=== PATIENT | female | born 1955 | race American Indian/Alaskan Native ===

== ENCOUNTER 2017-07-10 10:24 | Emergency (ER) | payer MEDICAID ==
[2017-07-10 10:37] VITALS: BP 137/85; PULSE 91; RESP 20; TEMP 97.9; O2SAT 100
[2017-07-10] MEDS ORDERED: Sodium Chloride 0.9% 1,000 ML IV ONE (10:58)
--- NOTE | 2017-07-10 11:03 | C.PDOC ---
History Of Present Illness 61 yo male w/PMhx of obesity, HTN, hx of CVA, COPD, recently diagnosed with colon CA, was sent to ED by for further evaluation of rectal/ vaginal fissure. Pt reports, had colonoscopy performed on 06/14/17 when biopsy done and diagnosed with colon ca. Pt sts, 2 weeks after colonoscopy, "noted stool coming out of my vagina". Otherwise, pt denies fever, chills, headache, dizziness, CP, SOB, dyspnea, diaphoresis, palpitation, abd. pain, V/D, food intolerance, back pain, UTI sx. Pt admits, had CT abd/pelvis done, has results. Ambulate to Ed for evaluation, not in any apparent distress. Pt has Rx from with request to admission due to Anal/vaginal fissure. Consult with Debra Young card. Dr. Williams. Time Seen by Provider: 07/10/17 10:45 Chief Complaint (Nursing): Medical Clearance History Per: Patient History/Exam Limitations: no limitations Onset/Duration Of Symptoms: Days Past Medical History Reviewed: Historical Data, Nursing Documentation, Vital Signs Vital Signs: Last Vital Signs Temp 97.9 F 07/10/17 10:36 Pulse 91 H 07/10/17 10:36 Resp 20 07/10/17 10:36 BP 137/85 07/10/17 10:36 Pulse Ox 100 07/10/17 11:23 - Medical History PMH: CAD, COPD, HTN, Malignancy, TIA Other PMH: Obesity Other Surgeries: Gastric sleeve on 01/2017 - [facility] Procedures COLONOSCOPY (04/22/02) MAGNETIC RESONANCE IMAGING OF BRAIN AND BRAIN STEM (04/22/02) OTHER ENDOSCOPY OF SM INTEST (05/17/02) Family History: States: No Known Family Hx - Social History Hx Alcohol Use: No Hx Substance Use: No - Immunization History Hx Tetanus Toxoid Vaccination: No Hx Influenza Vaccination: No Hx Pneumococcal Vaccination: No Review Of Systems Except As Marked, All Systems Reviewed And Found Negative. Constitutional: Negative for: Fever, Chills Cardiovascular: Negative for: Chest Pain, Palpitations Respiratory: Negative for: Shortness of Breath Gastrointestinal: Negative for: Vomiting, Abdominal Pain, Diarrhea Musculoskeletal: Negative for: Back Pain Neurological: Negative for: Headache, Dizziness Physical Exam - Physical Exam Appears: Well, Non-toxic, No Acute Distress Skin: Normal Color, Warm, Dry Eye(s): bilateral: PERRL Nose: Normal Throat: No Erythema, No Exudate, No Drooling Neck: Trachea Midline, Supple Cardiovascular: Rhythm Regular, No JVD Respiratory: No Decreased Breath Sounds, No Accessory Muscle Use, No Stridor, No Wheezing Gastrointestinal/Abdominal: Soft, No Tenderness, No Distention, No Guarding Rectal: Other (pt is in hallway bed now) Back: No CVA Tenderness, No Vertebral Tenderness, No Paraspinal Tenderness Extremity: No Pedal Edema Neurological/Psych: Oriented x3, Normal Speech ED Course And Treatment O2 Sat by Pulse Oximetry: 100 (RA) Pulse Ox Interpretation: Normal Progress Note: Dr. Mills arrived to ED to evaluate patient. As per Dr. Mills, request to cancel blood work, pt can be discharge today and request return to ED in 2 days for pre-surgical medical evaluation/clearence prior to surgery scheduled for 07/15/17. Pt is aware and agrees with plan. On re- evaluation, pt is afebrile, hemodynamicalys table. non-toxic. Ambulatory in ED with stable gait. Abd: benign, (-) guarding, (-) rebound. Back: (-) CVA tenderness. Pt is stable for discharge now. Medical Decision Making Medical Decision Making: PLAN: * CBC * CMP * Troponin * Urinalysis * Sodium Chloride IV Disposition Counseled Patient/Family Regarding: Diagnosis, Need For Followup - Disposition Referrals: Demar Mills MD [Staff Provider] - Disposition: HOME/ ROUTINE Disposition Time: 11:17 Condition: STABLE Additional Instructions: RETURN TO ED ON 07/12/17 FOR ADMISSION AND MEDICAL CLEARANCE PRIOR TO SURGERY BY RETURN TO ED IF ANY WORSENING OR NEW CHANGES. 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 - Scribe Statement The provider has reviewed the documentation as recorded by the Scribe Ирина Ritchie All medical record entries made by the Scribe were at my direction and personally dictated by me. I have reviewed the chart and agree that the record accurately reflects my personal performance of the history, physical exam, medical decision making, and the department course for this patient. I have also personally directed, reviewed, and agree with the discharge instructions and disposition.
== END 2017-07-10 11:48 | disposition home or self-care (01) ==
LOC: C.ER 10:24
DX: K60.2 Anal fissure, unspecified (principal)

== ENCOUNTER 2017-07-12 11:14 | Inpatient (IN) | payer MEDICAID ==
[2017-07-12] MEDS ORDERED: Sodium Chloride 0.9% 1,000 ML IV ONE (12:05)
[2017-07-12 12:44] LABS: RBC URINE < 1 /hpf (0-3); URINE BACTERIA MOD (<OCC); URINE BILIRUBIN NEGATIVE (NEGATIVE); URINE BLOOD NEGATIVE (NEGATIVE); URINE COLOR Amber (YELLOW); URINE GLUCOSE (UA) NORMAL (Normal); URINE KETONE NEGATIVE (NEGATIVE); URINE LEUKOCYTE ESTERASE NEG Leu/uL (Negative); URINE PROTEIN NEGATIVE (NEGATIVE); URINE UROBILINOGEN NORMAL mg/dL (0.2-1.0); WBC URINE 2 /hpf (0-5)
[2017-07-12 13:00] LABS: BASO % 0.6 % (0.0-2.0); EOS # 0.3 K/uL (0.0-0.7); EOS % 4.7 % (0.0-4.0); HEMATOCRIT 35.6 % (34.0-47.0); LYMPH # 2.2 K/uL (1.0-4.3); MEAN CELL VOLUME 82.3 fL (81.0-99.0); MEAN CORPUSCULAR HEMOGLOBIN 26.7 pg (27.0-31.0); MEAN CORPUSCULAR HGB CONC 32.4 g/dL (33.0-37.0); MEAN PLATELET VOLUME 8.8 fL (7.2-11.7); MONO # 0.3 K/uL (0.0-0.8); NRBC % 0.1 % (0.0-2.0); RED CELL DISTRIBUTION WIDTH 13.7 % (11.5-14.5); WHITE BLOOD COUNT 5.6 K/uL (4.8-10.8)
[2017-07-12 13:07] LABS: CHLORIDE 104 mmol/L (98-107); POTASSIUM 3.5 mmol/L (3.6-5.2); SODIUM 138 mmol/L (132-148)
[2017-07-12 13:09] LABS: BILIRUBIN,TOTAL 0.4 mg/dL (0.2-1.3); GFR AFRICAN-AMERICAN > 60
[2017-07-12 13:10] LABS: ALKALINE PHOSPHATASE 100 U/L (38-126); ALT/SGPT 56 U/L (9-52); AST/SGOT 43 U/L (14-36); BLOOD UREA NITROGEN 12 mg/dL (7-17); CALCIUM 9.2 mg/dl (8.6-10.4); CARBON DIOXIDE 22 mmol/L (22-30); GLUCOSE,RANDOM 108 mg/dL (65-105); TOTAL PROTEIN 8.8 g/dL (6.3-8.3)
--- NOTE | 2017-07-12 13:15 | C.PDOC ---
History Of Present Illness 61 y/o female sent by to be admitted to Dr. Chand for Colon resection surgery. Patient has a hx of colon cancer diagnosed after a colonoscopy in april.. Denies fever, chills, or any other complaints. No chest pain or SOB. (+) constipation Time Seen by Provider: 07/12/17 11:38 Chief Complaint (Nursing): Medical Clearance History Per: Patient History/Exam Limitations: no limitations Onset/Duration Of Symptoms: Days Current Symptoms Are (Timing): Still Present Severity: Mild Reports Recently: Treated By A Physician (Dr. Koko Limon) Additional History Per: Patient Past Medical History Reviewed: Historical Data, Nursing Documentation, Vital Signs Vital Signs: Last Vital Signs Temp 98.0 F 07/12/17 11:24 Pulse 96 H 07/12/17 13:53 Resp 18 07/12/17 13:53 BP 122/78 07/12/17 13:53 Pulse Ox 98 07/12/17 13:53 - Medical History PMH: Anemia, Asthma, CAD, COPD, HTN, Hyperlipidemia, Malignancy, Migraine, Seizures, Sleep Apnea, TIA Surgical History: Appendectomy, Back Surgery (LUMBAR), Cholecystectomy, Endoscopy - [facility] Procedures COLONOSCOPY (04/22/02) MAGNETIC RESONANCE IMAGING OF BRAIN AND BRAIN STEM (04/22/02) OTHER ENDOSCOPY OF SM INTEST (05/17/02) Family History: States: Unknown Family Hx - Social History Hx Alcohol Use: No Hx Substance Use: No - Immunization History Hx Tetanus Toxoid Vaccination: No Hx Influenza Vaccination: No Hx Pneumococcal Vaccination: No Review Of Systems Except As Marked, All Systems Reviewed And Found Negative. Constitutional: Negative for: Fever, Chills Cardiovascular: Negative for: Chest Pain Respiratory: Negative for: Shortness of Breath Gastrointestinal: Positive for: Abdominal Pain, Constipation Physical Exam - Physical Exam Appears: Non-toxic, No Acute Distress Skin: Warm, Dry Head: Atraumatic, Normacephalic Neck: Normal Cardiovascular: Rhythm Regular, No Murmur Respiratory: Normal Breath Sounds, No Rales, No Rhonchi, No Wheezing Gastrointestinal/Abdominal: Soft, Tenderness (Mild diffuse abdominal pain) Back: No CVA Tenderness Neurological/Psych: Oriented x3, Normal Speech Gait: Steady ED Course And Treatment - Laboratory Results Result Diagrams: 07/12/17 12:56 07/12/17 12:56 Lab Interpretation: Normal O2 Sat by Pulse Oximetry: 99 (RA) Pulse Ox Interpretation: Normal Progress Note: Patient sent for admission to Dr Chand. Colon resection sceduled with Dr Mills. Case discussed with Dr roblero and request admission to Dr Chand Reassessment Condition: Unchanged - Physician Consult Information Physician Contacted: Kari Chand Outcome Of Conversation: admit Medical Decision Making Medical Decision Making: Plans: * IV fluids * XRAY obstructive series * Blood labs * UA Dr. Koko Limon notified and request patient to be admitted to Dr. Mills. Dr. Mills notified and will admit patient to his service. Disposition Discussed With Dr.: Kari Chand Doctor Will See Patient In The: Hospital - Disposition Disposition: HOSPITALIZED Disposition Time: 13:30 Condition: STABLE - POA Present On Arrival: None - Clinical Impression Clinical Impression: Colon cancer - Scribe Statement The provider has reviewed the documentation as recorded by the Scribe Paul swain All medical record entries made by the Scribe were at my direction and personally dictated by me. I have reviewed the chart and agree that the record accurately reflects my personal performance of the history, physical exam, medical decision making, and the department course for this patient. I have also personally directed, reviewed, and agree with the discharge instructions and disposition. Decision To Admit - Pt Status Changed To: Hospital Disposition Of: Inpatient - Admit Certification Admit to Inpatient:: After my assessment, the patient will require hospitalization for at least two midnights. This is because of the severity of symptoms shown, intensity of services needed, and/or the medical risk in this patient being treated as an outpatient. - InPatient: Physician Admission Certification: I certify that this patient requires 2 or more midnights of care for the following reason:: Colon Cancer - . Bed Request Type: Regular Admitting Physician: Kari Chand Patient Diagnosis: Colon cancer
[2017-07-12] MEDS ORDERED: Apap-Butalbital-Caffeine 325-50-40mg Tab PO PRN (14:01)
--- NOTE | 2017-07-12 14:01 | CP.PCM.PN ---
Subjective - Date & Time of Evaluation Date of Evaluation: 07/12/17 Time of Evaluation: 13:00 - Subjective Subjective: CC: Admitted for a scheduled javier coloectomy. HPI: Patient is a 61 year old female with a history of recent diagnosis of Colon cancer, HTN, DM, COPD, Psorasisi is here to be admitted for a scheduled surgery on Monday morning. Dr. Chand was consulted for primary medical management. She currently is complaining of some mild abdominal pain and also some psoriasis on her right elbow which she said flared up recently. She is says she takes a medication for DM but is unsure what the medication is. She also said she had a recent diagnosis of DM as well. She denies any history of NM or stent placement. She currently denies any recent fever, chills, nausea, vomiting, diarrhea, chest pain, shortness of breath, cough, dysuria, burning with urination, joint pain or swelling. PMH: see above PSH: Appendectomy, cholecystectomy FH: Patient denies any family history of cancer SH: Lives alone, retired, quit smoking 26 years ago, denies etoh use, or illicit drug use Allergic: Aspirin, Bactrim Objective - Vital Signs/Intake and Output Vital Signs (last 24 hours): Temp Pulse Resp BP Pulse Ox 98.0 F 96 H 18 122/78 98 07/12/17 11:24 07/12/17 13:53 07/12/17 13:53 07/12/17 13:53 07/12/17 13:53 - Labs Labs: 07/12/17 12:56 07/12/17 12:56 PT 10.8 SECONDS (9.7-12.2) 07/12/17 12:56 INR 1.0 07/12/17 12:56 APTT 30 SECONDS (21-34) 07/12/17 12:56 - Constitutional Appears: Non-toxic, No Acute Distress - Eye Exam Eye Exam: Normal appearance Pupil Exam: NORMAL ACCOMODATION - Respiratory Exam Respiratory Exam: Clear to Ausculation Bilateral. absent: Rales, Rhonchi, Wheezes - Cardiovascular Exam Cardiovascular Exam: REGULAR RHYTHM, RRR, +S1, +S2. absent: Gallop, Rubs - GI/Abdominal Exam GI & Abdominal Exam: Soft, Normal Bowel Sounds. absent: Distended, Firm, Tenderness - Extremities Exam Extremities Exam: Normal Inspection. absent: Pedal Edema - Back Exam Back Exam: absent: CVA tenderness (L), CVA tenderness (R) - Neurological Exam Neurological Exam: Oriented x3 - Psychiatric Exam Psychiatric exam: Normal Affect, Normal Mood - Skin Skin Exam: Normal Color, Pallor Additional comments: rash on posterior right elbow, scale non raised Assessment and Plan - Assessment and Plan (Free Text) Assessment: This is a 61 year old female with a history of DM, CAD, HTN, COPD, Migraines, and Siezures is being for medical optimization and clearance for surgery on Dr. Ohara, corinne follow up recs by Dr. Wolf cardiology consult. Colon Cancer 07/12: Patient admitted under Dr. Ohara, Patient admitted to regular floor as inpatient. She is scheduled for surgery Monday morning Pre op labs, CXR, EKG Dr. Wolf consulted for pre op medical clearance Follow up morning cbc, cmp, mag, phos 40 meq of KDUR for hypokalemia Elevated LFTs Hepatitis panel DM Patient's home medication is on formula and patient does not have it with her. Will do accu checks with sliding scale, can restart her home medication(Victoza ) when it is brought from home. hyooglycemia protocol CAD Crestor 5mg, Plavix 75mg HTN: Procardia XL 90mg daily COPD: Home Advair, nebulizer, Singular Migraines: Topamax 50mg daily Floricet Psorasis: Benadryl cream as needed Prophylatic Measure Lovenox 40mg SC Protonix 40mg daily SCDs Claritin 10mg
[2017-07-12] MEDS ORDERED: Diphenhydramine 1% Cream (1 oz) TOP PRN (14:06)
--- NOTE | 2017-07-12 14:10 | RAD ---
PROCEDURE: Radiographs of the chest and abdomen (obstructive series) HISTORY: Abd Pain COMPARISON: Chest radiographs 02/11/2015. No prior abdomen radiographs available for comparison. TECHNIQUE: AP radiograph of the chest, with upright and supine radiographs of the abdomen. FINDINGS: CHEST: No infiltrate, pleural effusion or pneumothorax is identified the cardiomediastinal appearing diffusely unremarkable. No pulmonary vascular derangement. ABDOMEN AND PELVIS: There is a nonobstructive bowel gas pattern appreciated with surgical is identified at the epigastric and right upper quadrant abdomen regions. Prominent retained fecal material scattered throughout the colon may reflect constipation. Clinically correlate. No free intraperitoneal gas identified at this time. IMPRESSION: Nonacute radiographs of chest and abdomen. No evidence of mechanical bowel obstruction. Constipation is in question. Clinically correlate further.
[2017-07-12] MEDS ORDERED: Dextrose 50% SYRINGE Inj (50 ml) IV PRN (14:24)
[2017-07-12] MEDS: Enoxaparin 40 mg Syringe SC SCH (15:24)
[2017-07-12] MEDS ORDERED: Pantoprazole 40 mg EC Tab PO SCH (16:00)
--- NOTE | 2017-07-12 16:17 | CP.PCM.CON ---
History of Present Illness - History of Present Illness History of Present Illness: 61 year old female with past medical history of colon cancer, stroke, migraines, COPD, and bariatric surgery complains of finding feces after she cleaned herself vaginally. Patient states she recently had a colonoscopy done on 06/22 and she later had her first bowel movement on 07/03. She stated during that bowel movement she was very constipated and after wiping vaginally she found a large lump of feces. She states it felt like there was a gaping hole in between my rectum and vagina. Patient states this has never happened before and she has not had a bowel movement since that day. She states she is in the hospital for a colon resection due to her colon cancer that was recently diagnosed on 06/22 during the colonscopy and was later confirmed with pathology. Patient stated she had a colonoscopy done about 4 years ago and they found non- cancerous polyps. She states she was having blood in her stool but thought her symptoms were due to her bariatric sleeve surgery she had done about one year ago.She states she has vaginal discharge that is white in color, vaginal odor and vaginal itching that started on 06/06 until present. She states she is using Tucks wipes for the vaginal itching which is helping with moderate relief. She denies dysuria, polyuria, vaginal bleeding, fever, or vomiting. She states she has been nauseated but has not vomited. PMD: Dr. Chand GI: Dr. Pérez Oncology: Dr. Chau General Surgeon: Dr. 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 Menarche:17 09/26; Periods were regular and were about 2 weeks long; Menopause: 51 years old; Denies abnormal vaginal bleeding; Diagnosed and treated for Gonorrhea in 1979; Diagnosed and treated for Chlamydia. Not currently sexually active. 7 vaginal deliveries all full term. 1973 (girl); 1975 (boy); 1977 (boy) ; 1979 (girl); 1980 (girl); 1983 (girl); 1985 (boy) Medical History: Asthma, COPD, seizure (2002); migranes, gastroparesis, anemia, sleep apnea, psoriasis, CAD Surgical History: Endoscopy 1999; Bariatric sleeve 02/04/16; appendectomy 1975; lumbar surgery 07/1990; cardiac catharization 06/1990; cholecystecomy; crycone surgery 1994; tubal ligation 08/1986; colonoscopy 05/2017 Medications: Nifedipine ER 90mg; Simvastatin 20mg; Clopidogrel 75mg; topiramate 50mg; fioricet; vitamin b-complex; bantoprazole DR 40mgl folic acid 1mg; vitamin D; advair; albuterol sulfate 0.083%; ventolin; loratadine 10mg; CPAP machine, meta mucil 1 tbsp per day, hemp oil 1 tbsp per day Allergies: aspirin, bees, sulfa, trimethoprim, oil based dye Family History: Dad passed at 64 years of age due to kidney cancer; mom living at 86 years of age - diabetes, heart disease and Alzheimer's disease; brother passed of a brain cancer Social History: Quit smoking 26 years ago; Smoked for about 20 years about 2-3 cigarettes per day; Denies alcohol or illicit drug use. Lives with daughter. Single. 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 Review of Systems - Constitutional Constitutional: absent: Chills, Fever, Headache - EENT Eyes: absent: Blurred Vision, Dry Eye Nose/Mouth/Throat: absent: Nasal Congestion, Nasal Discharge, Dry Mouth - Cardiovascular Cardiovascular: absent: Chest Pain, Dyspnea - Respiratory Respiratory: absent: Dyspnea - Gastrointestinal Gastrointestinal: Constipation, Nausea. absent: Diarrhea, Loose Stools, Vomiting - Genitourinary Genitourinary: absent: Dysuria, Flank Pain, Hematuria, Nocturia, Urinary Incontinence, Urinary Frequency, Urinary Hesitance, Urinary Urgency, Voiding Freq/Small Amts - Reproductive: Female Reproductive:Female: Post Menopausal, Vaginal Discharge (white in color), Vaginal Pruritis - Menstruation Menstruation: Post Menopausal - Neurological Neurological: absent: Dizziness, Headaches - Psychiatric Psychiatric: absent: Anxiety Past Patient History - Infectious Disease Hx of Infectious Diseases: None - Past Social History Smoking Status: Former Smoker - CARDIAC Hx Hypertension: Yes - PULMONARY Hx Asthma: Yes Hx Chronic Obstructive Pulmonary Disease (COPD): Yes Hx Sleep Apnea: Yes - NEUROLOGICAL Hx Migraine: Yes Hx Seizures: Yes Hx Transient Ischemic Attacks (TIA): Yes - ENDOCRINE/METABOLIC Hx Diabetes Mellitus Type 2: Yes - HEMATOLOGICAL/ONCOLOGICAL Hx Anemia: Yes - GASTROINTESTINAL Hx Gastrointestinal Disorders: Yes Other/Comment: GASTROPARESIS - PSYCHIATRIC Hx Substance Use: No - SURGICAL HISTORY Hx Appendectomy: Yes Hx Cholecystectomy: Yes - ANESTHESIA Hx Anesthesia: Yes Hx Anesthesia Reactions: No Meds Allergies/Adverse Reactions: Allergies Allergy/AdvReac Type Severity Reaction Status Date / Time aspirin Allergy Verified 07/12/17 11:28 bee venom protein (honey bee) Allergy Verified 07/12/17 11:28 sulfamethoxazole Allergy Verified 07/12/17 11:28 [From Bactrim] trimethoprim [From Bactrim] Allergy Verified 07/12/17 11:28 OIL BASED DYE Allergy Uncoded 07/12/17 11:28 - Medications Medications: Current Medications Acetaminophen/Butalbital/Caffeine (Fioricet) 1 tab PO Q8 PRN PRN Reason: Pain, moderate (4-7) Albuterol Sulfate (Albuterol 0.083% Inhal Nasra (2.5 Mg/3 Ml) Ud) 2.5 mg IH RQ6 [facility] Clopidogrel Bisulfate (Plavix) 75 mg PO DAILY [facility] Last Admin: 07/12/17 15:36 Dose: Not Given Dextrose (Dextrose 50% Inj) 0 ml IV STAT PRN; Protocol PRN Reason: Hyglycemia Protocol Dextrose (Glutose 15) 0 gm PO ONCE PRN; Protocol PRN Reason: Hypoglycemia Protocol Enoxaparin Sodium (Lovenox) 40 mg SC DAILY [facility] Last Admin: 07/12/17 15:24 Dose: 40 mg Famotidine (Pepcid) 20 mg PO BID [facility] Dextrose (Dextrose 5% In Water 1000 Ml) 1,000 mls @ 0 mls/hr IV .Q0M PRN; Protocol; Per Protocol PRN Reason: Hypoglycemia Protocol Insulin Human Regular (Novolin R) 0 unit SC ACHS [facility] PRN Reason: Protocol Loratadine (Claritin) 10 mg PO DAILY [facility] Multivitamins (Hexavitamin) 1 tab PO DAILY [facility] Nifedipine (Procardia Xl) 90 mg PO DAILY [facility] Rosuvastatin Calcium (Crestor) 5 mg PO HS [facility] Fluticasone/Salmeterol (Advair Diskus 250/50) 1 puff IH RQ12 [facility] Topiramate (Topamax (Brand)) 50 mg PO DAILY [facility] Zinc Acetate/Diphenhydramine (Benadryl 1% Zinc Acetate -0.1%) 1 cre TOP BID PRN PRN Reason: Itching / Pruritus Last Admin: 10/18/17 15:26 Dose: 1 applic Physical Exam - Constitutional Appears: Well, No Acute Distress - Head Exam Head Exam: ATRAUMATIC, NORMAL INSPECTION - Eye Exam Eye Exam: EOMI, Normal appearance, PERRL Pupil Exam: NORMAL ACCOMODATION - ENT Exam ENT Exam: Mucous Membranes Moist - Respiratory Exam Respiratory Exam: Clear to Auscultation Bilateral, NORMAL BREATHING PATTERN - Cardiovascular Exam Cardiovascular Exam: REGULAR RHYTHM, RRR, +S1, +S2 - GI/Abdominal Exam GI & Abdominal Exam: Hypoactive Bowel Sounds, Soft, Tenderness - Exam External exam: NORMAL EXTERNAL EXAM. absent: Lacerations, Lesions, Swelling Speculum exam: NORMAL SPECULUM EXAM (no feces seen on exam). absent: Cervical Discharge, Vaginal Bleeding, Vaginal Discharge Bimanual exam: NORMAL BIMANUAL EXAM. absent: Adenexal Mass, Cervical Motion Tendernes, Uterine Enlargement, Uterine Tenderness - Extremities Exam Extremities exam: Positive for: normal inspection. Negative for: pedal edema, tenderness - Neurological Exam Neurological exam: Alert, Oriented x3 - Psychiatric Exam Psychiatric exam: Normal Affect, Normal Mood - Skin Skin Exam: Normal Color, Warm Results - Vital Signs Recent Vital Signs: Last Vital Signs Temp 98.0 F 07/12/17 11:24 Pulse 96 H 07/12/17 13:53 Resp 18 07/12/17 13:53 BP 122/78 07/12/17 13:53 Pulse Ox 99 07/12/17 15:06 - Labs Result Diagrams: 07/12/17 12:56 07/12/17 12:56 Labs: Laboratory Results - last 24 hr 07/12/17 07/12/17 07/12/17 12:34 12:56 12:56 WBC 5.6 RBC 4.32 Hgb 11.5 Hct 35.6 MCV 82.3 MCH 26.7 L MCHC 32.4 L RDW 13.7 Plt Count 254 MPV 8.8 Neut % (Auto) 48.7 L Lymph % (Auto) 40.0 Holt % (Auto) 6.0 Eos % (Auto) 4.7 H Baso % (Auto) 0.6 Neut # 2.7 Lymph # 2.2 Holt # 0.3 Eos # 0.3 Baso # 0.0 PT INR APTT Sodium 138 Potassium 3.5 L Chloride 104 Carbon Dioxide 22 Anion Gap 16 BUN 12 Creatinine 0.9 Est GFR ( Amer) > 60 Est GFR (Non-Af Amer) > 60 Random Glucose 108 H Calcium 9.2 Total Bilirubin 0.4 AST 43 H ALT 56 H Alkaline Phosphatase 100 Total Protein 8.8 H Albumin 4.4 Globulin 4.4 H Albumin/Globulin Ratio 1.0 Lipase 50 Urine Color Nida Urine Clarity Hazy Urine pH 6.0 Ur Specific [place] 1.017 Urine Protein Negative Urine Glucose (UA) Normal Urine Ketones Negative Urine Blood Negative Urine Nitrate Negative Urine Bilirubin Negative Urine Urobilinogen Normal Ur Leukocyte Esterase Neg Urine WBC (Auto) 2 Urine RBC (Auto) < 1 Ur Squamous Epith Cells 1 Urine Bacteria Mod H 07/12/17 12:56 WBC RBC Hgb Hct MCV MCH MCHC RDW Plt Count MPV Neut % (Auto) Lymph % (Auto) Holt % (Auto) Eos % (Auto) Baso % (Auto) Neut # Lymph # Holt # Eos # Baso # PT 10.8 INR 1.0 APTT 30 Sodium Potassium Chloride Carbon Dioxide Anion Gap BUN Creatinine Est GFR ( Amer) Est GFR (Non-Af Amer) Random Glucose Calcium Total Bilirubin AST ALT Alkaline Phosphatase Total Protein Albumin Globulin Albumin/Globulin Ratio Lipase Urine Color Urine Clarity Urine pH Ur Specific [place] Urine Protein Urine Glucose (UA) Urine Ketones Urine Blood Urine Nitrate Urine Bilirubin Urine Urobilinogen Ur Leukocyte Esterase Urine WBC (Auto) Urine RBC (Auto) Ur Squamous Epith Cells Urine Bacteria Assessment & Plan - Assessment and Plan (Free Text) Assessment: 61 year old female with past medical history of colon cancer, stroke, migraines, COPD, and bariatric surgery complains of finding feces after she cleaned herself vaginally. Consult for fistula: Speculum exam was normal, no feces present. If fistula is present it is small in size and cannot be felt on physical exam. Recommendations to confirm fisutla: barium enema, CT with contrast of pelvis. If further workup needed should consult bellows filler/onc surgery. Thank you for this consult. Please re-consult if needed. Case discussed with Dr Brian Capps, PGY-1
[2017-07-12] MEDS: NIFEdipine 90 mg ER Tab PO SCH (17:33)
[2017-07-12] MEDS: Potassium Chloride 20 mEq ER Tab PO SCH (17:34)
[2017-07-12] MEDS: (Novolin R) Insulin Human Regular 100 units/ml vial SC SCH ×2 (17:37→21:41)
[2017-07-13] MEDS: Fluticasone-Salmeterol 250-50mcg Diskus IH SCH ×2 (07:25→20:12)
[2017-07-13 07:28] LABS: BASO % 0.7 % (0.0-2.0); EOS # 0.2 K/uL (0.0-0.7); EOS % 6.2 % (0.0-4.0); HEMATOCRIT 33.2 % (34.0-47.0); LYMPH # 1.6 K/uL (1.0-4.3); LYMPH % 44.7 % (20.0-40.0); MEAN CORPUSCULAR HEMOGLOBIN 26.7 pg (27.0-31.0); MEAN CORPUSCULAR HGB CONC 32.6 g/dL (33.0-37.0); MEAN PLATELET VOLUME 9.2 fL (7.2-11.7); MONO # 0.3 K/uL (0.0-0.8); MONO % 7.4 % (0.0-10.0); NRBC % 0.1 % (0.0-2.0); RED CELL DISTRIBUTION WIDTH 13.6 % (11.5-14.5); WHITE BLOOD COUNT 3.6 K/uL (4.8-10.8)
[2017-07-13] MEDS: (Novolin R) Insulin Human Regular 100 units/ml vial SC SCH ×4 (07:50→21:20)
[2017-07-13 08:00] LABS: CHLORIDE 104 mmol/L (98-107); POTASSIUM 3.6 mmol/L (3.6-5.2); SODIUM 138 mmol/L (132-148)
[2017-07-13 08:02] LABS: GFR AFRICAN-AMERICAN > 60
[2017-07-13 08:03] LABS: ALB/GLOB RATIO 1.1 (1.0-2.1); ALKALINE PHOSPHATASE 88 U/L (38-126); ALT/SGPT 47 U/L (9-52); AST/SGOT 42 U/L (14-36); BILIRUBIN,TOTAL 0.5 mg/dL (0.2-1.3); BLOOD UREA NITROGEN 11 mg/dL (7-17); CALCIUM 8.8 mg/dl (8.6-10.4); CARBON DIOXIDE 24 mmol/L (22-30); GLUCOSE,RANDOM 84 mg/dL (65-105); TOTAL PROTEIN 7.5 g/dL (6.3-8.3)
[2017-07-13] MEDS: Enoxaparin 40 mg Syringe SC SCH (09:48)
[2017-07-13] MEDS: Multiple Vitamins Tab PO SCH (09:50)
[2017-07-13] MEDS: Potassium Chloride 20 mEq ER Tab PO SCH (09:51)
[2017-07-13] MEDS: TOPIRAMATE 50 MG PO SCH (09:51)
[2017-07-13] MEDS: NIFEdipine 90 mg ER Tab PO SCH (09:51)
[2017-07-13] MEDS ORDERED: LIRAGLUTIDE 0.6 MG SQ SCH (10:00)
--- NOTE | 2017-07-13 11:10 | CP.PCM.PN ---
Subjective - Date & Time of Evaluation Date of Evaluation: 07/13/17 Time of Evaluation: 11:11 - Subjective Subjective: Patient has no current complaints; awaiting recommendations from Dr. Mills Objective - Vital Signs/Intake and Output Vital Signs (last 24 hours): Temp Pulse Resp BP Pulse Ox 98.0 F 70 20 111/71 100 07/13/17 08:14 07/13/17 08:14 07/13/17 08:14 07/13/17 08:14 07/13/17 08:14 Intake and Output: 07/13/17 07/13/17 06:59 18:59 Intake Total 250 Balance 250 - Medications Medications: Current Medications Acetaminophen/Butalbital/Caffeine (Fioricet) 1 tab PO Q8 PRN PRN Reason: Pain, moderate (4-7) Albuterol Sulfate (Albuterol 0.083% Inhal Nasra (2.5 Mg/3 Ml) Ud) 2.5 mg IH RQ6 [facility] Clopidogrel Bisulfate (Plavix) 75 mg PO DAILY [facility] Last Admin: 07/13/17 09:51 Dose: Not Given Dextrose (Dextrose 50% Inj) 0 ml IV STAT PRN; Protocol PRN Reason: Hyglycemia Protocol Dextrose (Glutose 15) 0 gm PO ONCE PRN; Protocol PRN Reason: Hypoglycemia Protocol Enoxaparin Sodium (Lovenox) 40 mg SC DAILY [facility] Last Admin: 07/13/17 09:48 Dose: 40 mg Famotidine (Pepcid) 20 mg PO BID [facility] Last Admin: 07/13/17 09:51 Dose: Not Given Dextrose (Dextrose 5% In Water 1000 Ml) 1,000 mls @ 0 mls/hr IV .Q0M PRN; Protocol; Per Protocol PRN Reason: Hypoglycemia Protocol Insulin Human Regular (Novolin R) 0 unit SC ACHS [facility] PRN Reason: Protocol Last Admin: 07/13/17 07:50 Dose: Not Given Loratadine (Claritin) 10 mg PO DAILY [facility] Last Admin: 07/13/17 09:50 Dose: Not Given Multivitamins (Hexavitamin) 1 tab PO DAILY [facility] Last Admin: 07/13/17 09:50 Dose: Not Given Nifedipine (Procardia Xl) 90 mg PO DAILY [facility] Last Admin: 07/13/17 09:51 Dose: Not Given Pneumococcal Polyvalent Vaccine (Pneumovax 23 Vaccine) 0.5 ml IM .ONCE ONE Stop: 07/14/17 10:01 Potassium Chloride (K-Dur 20 Meq Er Tab) 20 meq PO DAILY [facility] Last Admin: 07/13/17 09:51 Dose: Not Given Rosuvastatin Calcium (Crestor) 5 mg PO HS [facility] Last Admin: 07/12/17 21:39 Dose: 5 mg Fluticasone/Salmeterol (Advair Diskus 250/50) 1 puff IH RQ12 [facility] Last Admin: 07/13/17 07:25 Dose: 1 inhaler Topiramate (Topamax (Brand)) 50 mg PO DAILY [facility] Last Admin: 07/13/17 09:51 Dose: Not Given Zinc Acetate/Diphenhydramine (Benadryl 1% Zinc Acetate -0.1%) 1 cre TOP BID PRN PRN Reason: Itching / Pruritus Last Admin: 07/12/17 15:26 Dose: 1 applic - Labs Labs: 07/13/17 07:09 07/13/17 07:09 PT 10.8 SECONDS (9.7-12.2) 07/12/17 12:56 INR 1.0 07/12/17 12:56 APTT 30 SECONDS (21-34) 07/12/17 12:56 - Constitutional Appears: Non-toxic - Head Exam Additional comments: - Eye Exam Eye Exam: Normal appearance Pupil Exam: NORMAL ACCOMODATION - Respiratory Exam Respiratory Exam: Clear to Ausculation Bilateral. absent: Rales, Rhonchi, Wheezes - Cardiovascular Exam Cardiovascular Exam: REGULAR RHYTHM, RRR, +S1, +S2. absent: Gallop, Rubs - GI/Abdominal Exam GI & Abdominal Exam: Soft, Normal Bowel Sounds. absent: Distended, Firm, Tenderness - Extremities Exam Extremities Exam: Normal Inspection. absent: Pedal Edema - Back Exam Back Exam: absent: CVA tenderness (L), CVA tenderness (R) - Neurological Exam Neurological Exam: Oriented x3 - Psychiatric Exam Psychiatric exam: Normal Affect, Normal Mood - Skin Skin Exam: Normal Color, Pallor Additional comments: rash on posterior right elbow, scale non raised Assessment and Plan - Assessment and Plan (Free Text) Assessment: This is a 61 year old female with a history of DM, CAD, HTN, COPD, Migraines, and Siezures is being for medical optimization and clearance for surgery on Dr. Mills, will follow up recs by Dr. Wolf cardiology consult. Colon Cancer 07/12: Patient admitted under Dr. Mills, Patient admitted to regular floor as inpatient. She is scheduled for surgery Monday morning -Pre op labs, CXR, EKG -Dr. Wolf consulted for pre op medical clearance; appreciate recs Elevated LFTs;downtrending Hepatitis panel negative DM home medication(Victoza) when it is brought from home. hypoglycemia protocol CAD Crestor 5mg, Plavix 75mg HTN Procardia XL 90mg daily COPD Home Advair, nebulizer, Singular Migraines Topamax 50mg daily Floricet Psorasis Benadryl cream as needed Prophylatic Measure Lovenox 40mg SC Protonix 40mg daily SCDs Claritin 10mg Alll management as per Dr. Chand
[2017-07-13] MEDS ORDERED: Aminophylline 25 mg/ml Inj ONE (11:22)
--- NOTE | 2017-07-13 11:36 | CP.PCM.CON ---
History of Present Illness - History of Present Illness History of Present Illness: I was asked to evaluate patient for preoperative cardiovascular risk assessment. Patient is a 61 year old male with a history of HTN who has colon cancer. The patient requires hemicolectomy. She has intermittent dyspnea at times. The patient denies chest pain. Review of Systems - Constitutional Constitutional: absent: As Per HPI, Anorexia, Chills, Daytime Sleepiness, Excessive Sweating, Fatigue, Fever, Frequent Falls, Headache, Increased Appetite , Lethargy, Malaise, Night Sweats, Snoring, Sleep Apnea, Weight Gain, Weight Loss, Weakness, Other - EENT Eyes: absent: As Per HPI, Blind Spots, Blurred Vision, Change in Vision, Decreased Night Vision, Diplopia, Discharge, Dry Eye, Exophthalmos, Floaters, Irritation, Itchy Eyes, Loss of Peripheral Vision, Pain, Photophobia, Requires Corrective Lenses, Sees Flashes, Spots in Vision, Tunnel Vision, Other Visual Disturbances, Loss of Vision, Other Ears: absent: As Per HPI, Decreased Hearing, Ear Discharge, Ear Pain, Tinnitus, Abnormal Hearing, Disequilibrium, Dizziness, Other Nose/Mouth/Throat: absent: As Per HPI, Epistaxis, Nasal Congestion, Nasal Discharge, Nasal Obstruction, Nasal Trauma, Nose Pain, Post Nasal Drip, Sinus Pain, Sinus Pressure, Bleeding Gums, Change in Voice, Dental Pain, Dry Mouth, Dysphagia, Halitosis, Hoarsness, Lip Swelling, Mouth Lesions, Mouth Pain, Odynophagia, Sore Throat, Throat Swelling, Tongue Swelling, Facial Pain, Neck Pain, Neck Mass, Other - Cardiovascular Cardiovascular: absent: As Per HPI, Acrocyanosis, Chest Pain, Chest Pain at Rest , Chest Pain with Activity, Claudication, Diaphoresis, Dyspnea, Dyspnea on Exertion, Edema, Irregular Heart Rhythm, Pain Radiating to Arm/Neck/Jaw, Leg Edema, Leg Ulcers, Lightheadedness, Orthopnea, Palpitations, Paroxysmal Nocturnal Dyspnea, Pedal Edema, Radiating Pain, Rapid Heart Rate, Slow Heart Rate, Syncope, Other - Respiratory Respiratory: Dyspnea - Gastrointestinal Gastrointestinal: absent: As Per HPI, Abdominal Pain, Belching, Bloating, Change in Bowel Habits, Change in Stool Character, Coffee Ground Emesis, Constipation, Cramping, Diarrhea, Dyspepsia, Dysphagia, Early Satiety, Excessive Flatus, Fecal Incontinence, Heartburn, Hematemesis, Hematochezia, Loose Stools, Melena, Nausea, Odynophagia, Temesmus, Vomiting, Other - Genitourinary Genitourinary: absent: As Per HPI, Change in Urinary Stream, Difficulty Urinating, Dysuria, Flank Pain, Hematuria, Pyuria, Nocturia, Urinary Incontinence, Urinary Frequency, Urinary Hesitance, Urinary Urgency, Voiding Freq/Small Amts, Freq UTI, Hx Renal/Bladder Calculi, Hx /Renal Surgery, Bladder Distension, Other - Menstruation Menstruation: absent: As Per HPI, Amenorrhea, Amenorrhea/ Control, Currently Menstual, Cycle <21 Days, Cycle >35 Days, Cycle Variable, Menses 1-7 Days, Menses >/= 8 Days, Menses Variable, Cycle > 4 Weeks Between, No Menses for 6 Months, Heavy Menses, Light Menses, Normal Menses, Spotting Between Cycles , S/P Hysterectomy, Menopausal, Post Menopausal, Premenarche, Abnormal Vaginal Bleeding, Dysmenorrhea, Other - Musculoskeletal Musculoskeletal: absent: As Per HPI, Abnormal Gait, Arthralgias, Atrophy, Back Pain, Deformity, Joint Swelling, Limited Range of Motion, Loss of Height, Muscle Cramps, Muscle Weakness, Myalgias, Neck Pain, Numbness, Radiating Pain into Limb, Stiffness, Tingling, Other - Integumentary Integumentary: absent: As Per HPI, Acne, Alopecia, Bleeding Lesions, Change in Hair, Change in Nails, Change in Pigmentation, Changing Lesions, Dry Skin, Erythema, Furuncle, Hirsutism, Lesions, New Lesions, Non-Healing Lesions, Photosensitivity, Pruritus, Rash, Skin Pain, Skin Ulcer, Sores, Striae, Swelling , Unusual Bruising, Wounds, Jaundice, Other - Neurological Neurological: absent: As Per HPI, Abnormal Gait, Abnormal Hearing, Abnormal Movements, Abnormal Speech, Behavioral Changes, Burning Sensations, Confusion, Convulsions, Disequilibrium, Dizziness, Numbness, Focal Weakness, Frequent Falls , Headaches, Lack of Coordination, Loss of Vision, Memory Loss, Paresthesias, Radicular Pain, Restless Legs, Sensory Deficit, Syncope, Tingling, Tremor, Vertigo, Weakness, Other Visual Disturbances, Other - Psychiatric Psychiatric: absent: As Per HPI, Abnormal Sleep Pattern, Anhedonia, Anxiety, Auditory Hallucinations, Behavioral Changes, Change in Appetite, Change in Libido, Confusion, Depression, Difficulty Concentrating, Hallucinations, Homicidal Ideation, Hopelessness, Irritability, Memory Loss, Mood Swings, Panic Attacks, Paranoia, Suicidal Ideation, Visual Hallucinations, Tactile Hallucinations, Other - Endocrine Endocrine: absent: As Per HPI, Change in Body Appearance, Change in Libido, Cold Intolorance, Deepening of Voice, Excessive Sweating, Fatigue, Flushing, Heat Intolorance, Increase in Ring/Shoe/Hat Size, Palpitations, Polydipsia, Polyphagia, Polyuria, Other - Hematologic/Lymphatic Hematologic: absent: As Per HPI, Easy Bleeding, Easy Bruising, Lymphadenopathy, Other Past Patient History - Infectious Disease Hx of Infectious Diseases: None - Past Social History Smoking Status: Former Smoker - CARDIAC Hx Hypertension: Yes - PULMONARY Hx Asthma: Yes Hx Chronic Obstructive Pulmonary Disease (COPD): Yes Hx Sleep Apnea: Yes - NEUROLOGICAL Hx Migraine: Yes Hx Seizures: Yes Hx Transient Ischemic Attacks (TIA): Yes - ENDOCRINE/METABOLIC Hx Diabetes Mellitus Type 2: Yes - HEMATOLOGICAL/ONCOLOGICAL Hx Anemia: Yes - INTEGUMENTARY Hx Eczema: Yes - MUSCULOSKELETAL/RHEUMATOLOGICAL Hx Falls: No Other/Comment: back sx - GASTROINTESTINAL Hx Gastrointestinal Disorders: Yes Other/Comment: GASTROPARESIS - PSYCHIATRIC Hx Substance Use: No - SURGICAL HISTORY Hx Appendectomy: Yes Hx Cholecystectomy: Yes - ANESTHESIA Hx Anesthesia: Yes Hx Anesthesia Reactions: No Meds Allergies/Adverse Reactions: Allergies Allergy/AdvReac Type Severity Reaction Status Date / Time aspirin Allergy Verified 07/12/17 11:28 bee venom protein (honey bee) Allergy Verified 07/12/17 11:28 sulfamethoxazole Allergy Verified 07/12/17 11:28 [From Bactrim] trimethoprim [From Bactrim] Allergy Verified 07/12/17 11:28 OIL BASED DYE Allergy Uncoded 07/12/17 11:28 - Medications Medications: Current Medications Acetaminophen/Butalbital/Caffeine (Fioricet) 1 tab PO Q8 PRN PRN Reason: Pain, moderate (4-7) Albuterol Sulfate (Albuterol 0.083% Inhal Nasra (2.5 Mg/3 Ml) Ud) 2.5 mg IH RQ6 [facility] Clopidogrel Bisulfate (Plavix) 75 mg PO DAILY [facility] Last Admin: 07/13/17 09:51 Dose: Not Given Dextrose (Dextrose 50% Inj) 0 ml IV STAT PRN; Protocol PRN Reason: Hyglycemia Protocol Dextrose (Glutose 15) 0 gm PO ONCE PRN; Protocol PRN Reason: Hypoglycemia Protocol Enoxaparin Sodium (Lovenox) 40 mg SC DAILY [facility] Last Admin: 07/13/17 09:48 Dose: 40 mg Famotidine (Pepcid) 20 mg PO BID [facility] Last Admin: 07/13/17 09:51 Dose: Not Given Dextrose (Dextrose 5% In Water 1000 Ml) 1,000 mls @ 0 mls/hr IV .Q0M PRN; Protocol; Per Protocol PRN Reason: Hypoglycemia Protocol Insulin Human Regular (Novolin R) 0 unit SC ACHS [facility] PRN Reason: Protocol Last Admin: 07/13/17 07:50 Dose: Not Given Loratadine (Claritin) 10 mg PO DAILY [facility] Last Admin: 07/13/17 09:50 Dose: Not Given Multivitamins (Hexavitamin) 1 tab PO DAILY [facility] Last Admin: 07/13/17 09:50 Dose: Not Given Nifedipine (Procardia Xl) 90 mg PO DAILY [facility] Last Admin: 07/13/17 09:51 Dose: Not Given Pneumococcal Polyvalent Vaccine (Pneumovax 23 Vaccine) 0.5 ml IM .ONCE ONE Stop: 07/14/17 10:01 Potassium Chloride (K-Dur 20 Meq Er Tab) 20 meq PO DAILY [facility] Last Admin: 07/13/17 09:51 Dose: Not Given Rosuvastatin Calcium (Crestor) 5 mg PO HS [facility] Last Admin: 07/12/17 21:39 Dose: 5 mg Fluticasone/Salmeterol (Advair Diskus 250/50) 1 puff IH RQ12 [facility] Last Admin: 07/13/17 07:25 Dose: 1 inhaler Topiramate (Topamax (Brand)) 50 mg PO DAILY [facility] Last Admin: 07/13/17 09:51 Dose: Not Given Zinc Acetate/Diphenhydramine (Benadryl 1% Zinc Acetate -0.1%) 1 cre TOP BID PRN PRN Reason: Itching / Pruritus Last Admin: 07/12/17 15:26 Dose: 1 applic Physical Exam - Constitutional Appears: Non-toxic - Head Exam Head Exam: NORMAL INSPECTION - Eye Exam Eye Exam: Normal appearance - ENT Exam ENT Exam: Mucous Membranes Moist - Neck Exam Neck exam: Positive for: Full Rom - Respiratory Exam Respiratory Exam: NORMAL BREATHING PATTERN - Cardiovascular Exam Cardiovascular Exam: Bradycardia - GI/Abdominal Exam GI & Abdominal Exam: absent: Bruit, Diminished Bowel Sounds, Distended, Firm, Guarding, Hernia, Hyperactive Bowel Sounds, Hypoactive Bowel Sounds, Mass, Normal Bowel Sounds, Organomegaly, Pulsatile Mass, Rebound, Rigid, Soft, Tenderness - Rectal Exam Rectal Exam: absent: Deferred, Black Stool, Bloody Stool, Hemorrhoids, Fecal Impaction, NORMAL INSPECTION - Extremities Exam Extremities exam: Negative for: calf tenderness, full ROM, joint swelling, normal capillary refill, normal inspection, pedal edema, tenderness, pedal pulses present - Back Exam Back exam: absent: CVA tenderness (L), CVA tenderness (R), FULL ROM, muscle spasm, NORMAL INSPECTION, paraspinal tenderness, rash noted, tenderness, vertebral tenderness - Neurological Exam Neurological exam: Alert, Oriented x3 - Skin Skin Exam: Intact Results - Vital Signs Recent Vital Signs: Last Vital Signs Temp 98.0 F 07/13/17 08:14 Pulse 70 07/13/17 08:14 Resp 20 07/13/17 08:14 BP 111/71 07/13/17 08:14 Pulse Ox 100 07/13/17 08:14 - Labs Result Diagrams: 07/13/17 07:09 07/13/17 07:09 Labs: Laboratory Results - last 24 hr 07/12/17 07/12/17 07/12/17 12:34 12:56 12:56 WBC 5.6 RBC 4.32 Hgb 11.5 Hct 35.6 MCV 82.3 MCH 26.7 L MCHC 32.4 L RDW 13.7 Plt Count 254 MPV 8.8 Neut % (Auto) 48.7 L Lymph % (Auto) 40.0 Wise % (Auto) 6.0 Eos % (Auto) 4.7 H Baso % (Auto) 0.6 Neut # 2.7 Lymph # 2.2 Wise # 0.3 Eos # 0.3 Baso # 0.0 PT INR APTT Sodium 138 Potassium 3.5 L Chloride 104 Carbon Dioxide 22 Anion Gap 16 BUN 12 Creatinine 0.9 Est GFR ( Amer) > 60 Est GFR (Non-Af Amer) > 60 POC Glucose (mg/dL) Random Glucose 108 H Calcium 9.2 Phosphorus Magnesium Total Bilirubin 0.4 AST 43 H ALT 56 H Alkaline Phosphatase 100 Total Protein 8.8 H Albumin 4.4 Globulin 4.4 H Albumin/Globulin Ratio 1.0 Lipase 50 Urine Color [place] Urine Clarity Hazy Urine pH 6.0 Ur Specific [place] 1.017 Urine Protein Negative Urine Glucose (UA) Normal Urine Ketones Negative Urine Blood Negative Urine Nitrate Negative Urine Bilirubin Negative Urine Urobilinogen Normal Ur Leukocyte Esterase Neg Urine WBC (Auto) 2 Urine RBC (Auto) < 1 Ur Squamous Epith Cells 1 Urine Bacteria Mod H Hepatitis A IgM Ab Hep Bs Antigen Hep B Core IgM Ab Hepatitis C Antibody 07/12/17 07/12/17 07/12/17 12:56 16:54 20:51 WBC RBC Hgb Hct MCV MCH MCHC RDW Plt Count MPV Neut % (Auto) Lymph % (Auto) Wise % (Auto) Eos % (Auto) Baso % (Auto) Neut # Lymph # Wise # Eos # Baso # PT 10.8 INR 1.0 APTT 30 Sodium Potassium Chloride Carbon Dioxide Anion Gap BUN Creatinine Est GFR ( Amer) Est GFR (Non-Af Amer) POC Glucose (mg/dL) 159 H 103 Random Glucose Calcium Phosphorus Magnesium Total Bilirubin AST ALT Alkaline Phosphatase Total Protein Albumin Globulin Albumin/Globulin Ratio Lipase Urine Color Urine Clarity Urine pH Ur Specific [place] Urine Protein Urine Glucose (UA) Urine Ketones Urine Blood Urine Nitrate Urine Bilirubin Urine Urobilinogen Ur Leukocyte Esterase Urine WBC (Auto) Urine RBC (Auto) Ur Squamous Epith Cells Urine Bacteria Hepatitis A IgM Ab Hep Bs Antigen Hep B Core IgM Ab Hepatitis C Antibody 07/13/17 07/13/17 07/13/17 07:02 07:09 07:09 WBC 3.6 L RBC 4.05 Hgb 10.8 L Hct 33.2 L MCV 82.0 MCH 26.7 L MCHC 32.6 L RDW 13.6 Plt Count 242 MPV 9.2 Neut % (Auto) 41.0 L Lymph % (Auto) 44.7 H Wise % (Auto) 7.4 Eos % (Auto) 6.2 H Baso % (Auto) 0.7 Neut # 1.5 L Lymph # 1.6 Wise # 0.3 Eos # 0.2 Baso # 0.0 PT INR APTT Sodium Potassium Chloride Carbon Dioxide Anion Gap BUN Creatinine Est GFR ( Amer) Est GFR (Non-Af Amer) POC Glucose (mg/dL) 107 Random Glucose Calcium Phosphorus Magnesium Total Bilirubin AST ALT Alkaline Phosphatase Total Protein Albumin Globulin Albumin/Globulin Ratio Lipase Urine Color Urine Clarity Urine pH Ur Specific [place] Urine Protein Urine Glucose (UA) Urine Ketones Urine Blood Urine Nitrate Urine Bilirubin Urine Urobilinogen Ur Leukocyte Esterase Urine WBC (Auto) Urine RBC (Auto) Ur Squamous Epith Cells Urine Bacteria Hepatitis A IgM Ab Negative Hep Bs Antigen Negative Hep B Core IgM Ab Negative Hepatitis C Antibody Negative 07/13/17 07:09 WBC RBC Hgb Hct MCV MCH MCHC RDW Plt Count MPV Neut % (Auto) Lymph % (Auto) Wise % (Auto) Eos % (Auto) Baso % (Auto) Neut # Lymph # Wise # Eos # Baso # PT INR APTT Sodium 138 Potassium 3.6 Chloride 104 Carbon Dioxide 24 Anion Gap 14 BUN 11 Creatinine 0.9 Est GFR ( Amer) > 60 Est GFR (Non-Af Amer) > 60 POC Glucose (mg/dL) Random Glucose 84 Calcium 8.8 Phosphorus 4.0 Magnesium 2.0 Total Bilirubin 0.5 AST 42 H ALT 47 Alkaline Phosphatase 88 Total Protein 7.5 Albumin 3.9 Globulin 3.5 Albumin/Globulin Ratio 1.1 Lipase Urine Color Urine Clarity Urine pH Ur Specific [place] Urine Protein Urine Glucose (UA) Urine Ketones Urine Blood Urine Nitrate Urine Bilirubin Urine Urobilinogen Ur Leukocyte Esterase Urine WBC (Auto) Urine RBC (Auto) Ur Squamous Epith Cells Urine Bacteria Hepatitis A IgM Ab Hep Bs Antigen Hep B Core IgM Ab Hepatitis C Antibody - EKG Data EKG Interpreted by: Myself Assessment & Plan (1) Dyspnea Assessment and Plan: Patient is scheduled for a high risk procedure. will schedule stress test. check echocardiogram. Status: Acute (2) Colon cancer Assessment and Plan: for stress test. Status: Acute
[2017-07-13] MEDS: Albuterol 0.083% Inhal Sol (2.5 mg/3 mL) UD IH SCH (20:12)
--- NOTE | 2017-07-13 20:41 | CP.PCM.PN ---
Subjective - Date & Time of Evaluation Date of Evaluation: 07/13/17 Time of Evaluation: 20:40 - Subjective Subjective: nuclear stress test reviewed. No evidence of myocardial ischemia. Normal left ventricular function. No cardiovascular contraindication to the planned surgery. Objective - Vital Signs/Intake and Output Vital Signs (last 24 hours): Temp Pulse Resp BP Pulse Ox 97.5 F L 74 20 108/71 97 07/13/17 15:00 07/13/17 15:00 07/13/17 15:00 07/13/17 15:00 07/13/17 15:00 - Medications Medications: Current Medications Acetaminophen/Butalbital/Caffeine (Fioricet) 1 tab PO Q8 PRN PRN Reason: Pain, moderate (4-7) Albuterol Sulfate (Albuterol 0.083% Inhal Nasra (2.5 Mg/3 Ml) Ud) 2.5 mg IH RQ6 [facility] Last Admin: 07/13/17 20:12 Dose: 2.5 mg Clopidogrel Bisulfate (Plavix) 75 mg PO DAILY [facility] Last Admin: 07/13/17 09:51 Dose: Not Given Dextrose (Dextrose 50% Inj) 0 ml IV STAT PRN; Protocol PRN Reason: Hyglycemia Protocol Dextrose (Glutose 15) 0 gm PO ONCE PRN; Protocol PRN Reason: Hypoglycemia Protocol Enoxaparin Sodium (Lovenox) 40 mg SC DAILY [facility] Last Admin: 07/13/17 09:48 Dose: 40 mg Famotidine (Pepcid) 20 mg PO BID [facility] Last Admin: 07/13/17 17:33 Dose: 20 mg Dextrose (Dextrose 5% In Water 1000 Ml) 1,000 mls @ 0 mls/hr IV .Q0M PRN; Protocol; Per Protocol PRN Reason: Hypoglycemia Protocol Insulin Human Regular (Novolin R) 0 unit SC ACHS [facility] PRN Reason: Protocol Last Admin: 07/13/17 12:23 Dose: Not Given Loratadine (Claritin) 10 mg PO DAILY [facility] Last Admin: 07/13/17 09:50 Dose: Not Given Multivitamins (Hexavitamin) 1 tab PO DAILY [facility] Last Admin: 07/13/17 09:50 Dose: Not Given Nifedipine (Procardia Xl) 90 mg PO DAILY [facility] Last Admin: 07/13/17 09:51 Dose: Not Given Pneumococcal Polyvalent Vaccine (Pneumovax 23 Vaccine) 0.5 ml IM .ONCE ONE Stop: 07/14/17 10:01 Potassium Chloride (K-Dur 20 Meq Er Tab) 20 meq PO DAILY [facility] Last Admin: 07/13/17 09:51 Dose: Not Given Rosuvastatin Calcium (Crestor) 5 mg PO HS [facility] Last Admin: 07/12/17 21:39 Dose: 5 mg Fluticasone/Salmeterol (Advair Diskus 250/50) 1 puff IH RQ12 [facility] Last Admin: 07/13/17 20:12 Dose: 1 inhaler Topiramate (Topamax (Brand)) 50 mg PO DAILY [facility] Last Admin: 07/13/17 09:51 Dose: Not Given Zinc Acetate/Diphenhydramine (Benadryl 1% Zinc Acetate -0.1%) 1 cre TOP BID PRN PRN Reason: Itching / Pruritus Last Admin: 07/12/17 15:26 Dose: 1 applic - Labs Labs: 07/13/17 07:09 07/13/17 07:09 PT 10.8 SECONDS (9.7-12.2) 07/12/17 12:56 INR 1.0 07/12/17 12:56 APTT 30 SECONDS (21-34) 07/12/17 12:56 Assessment and Plan (1) Dyspnea Status: Acute (2) Colon cancer Status: Acute
[2017-07-14] MEDS: Albuterol 0.083% Inhal Sol (2.5 mg/3 mL) UD IH SCH ×4 (01:46→19:09)
[2017-07-14] MEDS: Fluticasone-Salmeterol 250-50mcg Diskus IH SCH ×2 (07:20→19:08)
[2017-07-14] MEDS: (Novolin R) Insulin Human Regular 100 units/ml vial SC SCH ×4 (08:45→21:17)
[2017-07-14] MEDS ORDERED: Pneumococcal 23-Valent Vaccine IM ONE (10:00)
[2017-07-14] MEDS ORDERED: Influenza Vaccine 60 mcg/0.5 mL SYR (4YR UP) IM ONE (10:00)
[2017-07-14] MEDS: TOPIRAMATE 50 MG PO SCH (10:00)
--- NOTE | 2017-07-14 10:18 | CP.PCM.PN ---
Subjective - Date & Time of Evaluation Date of Evaluation: 07/14/17 Time of Evaluation: 12:56 - Subjective Subjective: Patient seen and evaluated; has no complaints; will be going for R javier colectomy on Monday. Has been cleared for surgery. Objective - Vital Signs/Intake and Output Vital Signs (last 24 hours): Temp Pulse Resp BP Pulse Ox 97.8 F 87 20 103/68 100 07/14/17 08:09 07/14/17 08:09 07/14/17 08:09 07/14/17 08:09 07/14/17 08:09 Intake and Output: 07/14/17 07/14/17 06:59 18:59 Intake Total 300 Balance 300 - Medications Medications: Current Medications Acetaminophen/Butalbital/Caffeine (Fioricet) 1 tab PO Q8 PRN PRN Reason: Pain, moderate (4-7) Albuterol Sulfate (Albuterol 0.083% Inhal Nasra (2.5 Mg/3 Ml) Ud) 2.5 mg IH RQ6 [facility] Last Admin: 07/14/17 07:20 Dose: 2.5 mg Clopidogrel Bisulfate (Plavix) 75 mg PO DAILY [facility] Last Admin: 07/13/17 09:51 Dose: Not Given Dextrose (Dextrose 50% Inj) 0 ml IV STAT PRN; Protocol PRN Reason: Hyglycemia Protocol Dextrose (Glutose 15) 0 gm PO ONCE PRN; Protocol PRN Reason: Hypoglycemia Protocol Enoxaparin Sodium (Lovenox) 40 mg SC DAILY [facility] Last Admin: 07/13/17 09:48 Dose: 40 mg Famotidine (Pepcid) 20 mg PO BID [facility] Last Admin: 07/13/17 17:33 Dose: 20 mg Dextrose (Dextrose 5% In Water 1000 Ml) 1,000 mls @ 0 mls/hr IV .Q0M PRN; Protocol; Per Protocol PRN Reason: Hypoglycemia Protocol Insulin Human Regular (Novolin R) 0 unit SC ACHS [facility] PRN Reason: Protocol Last Admin: 07/14/17 08:45 Dose: Not Given Loratadine (Claritin) 10 mg PO DAILY [facility] Last Admin: 07/13/17 09:50 Dose: Not Given Multivitamins (Hexavitamin) 1 tab PO DAILY [facility] Last Admin: 07/13/17 09:50 Dose: Not Given Nifedipine (Procardia Xl) 90 mg PO DAILY [facility] Last Admin: 07/13/17 09:51 Dose: Not Given Potassium Chloride (K-Dur 20 Meq Er Tab) 20 meq PO DAILY [facility] Last Admin: 07/13/17 09:51 Dose: Not Given Rosuvastatin Calcium (Crestor) 5 mg PO HS [facility] Last Admin: 07/13/17 21:19 Dose: 5 mg Fluticasone/Salmeterol (Advair Diskus 250/50) 1 puff IH RQ12 [facility] Last Admin: 07/14/17 07:20 Dose: 1 inhaler Topiramate (Topamax (Brand)) 50 mg PO DAILY [facility] Last Admin: 07/13/17 09:51 Dose: Not Given Zinc Acetate/Diphenhydramine (Benadryl 1% Zinc Acetate -0.1%) 1 cre TOP BID PRN PRN Reason: Itching / Pruritus Last Admin: 07/12/17 15:26 Dose: 1 applic - Labs Labs: 07/13/17 07:09 07/13/17 07:09 PT 10.8 SECONDS (9.7-12.2) 07/12/17 12:56 INR 1.0 07/12/17 12:56 APTT 30 SECONDS (21-34) 07/12/17 12:56 - Constitutional Appears: Well, Non-toxic - Head Exam Head Exam: ATRAUMATIC - Eye Exam Eye Exam: EOMI Pupil Exam: PERRL - ENT Exam ENT Exam: Mucous Membranes Moist - Neck Exam Neck Exam: Full ROM - Respiratory Exam Respiratory Exam: Clear to Ausculation Bilateral. absent: Rales, Rhonchi, Wheezes - Cardiovascular Exam Cardiovascular Exam: REGULAR RHYTHM - GI/Abdominal Exam GI & Abdominal Exam: Soft, Normal Bowel Sounds - Extremities Exam Extremities Exam: absent: Calf Tenderness - Back Exam Back Exam: absent: CVA tenderness (L), CVA tenderness (R) - Neurological Exam Neurological Exam: Alert, Awake, Oriented x3 - Psychiatric Exam Psychiatric exam: Normal Affect - Skin Skin Exam: Warm Assessment and Plan - Assessment and Plan (Free Text) Assessment: This is a 61 year old female with a history of DM, CAD, HTN, COPD, Migraines, and Siezures is being for medical optimization and clearance for surgery on Dr. Mills, will follow up recs by Dr. Wolf cardiology consult. Colon Cancer 07/13; patient is for surgery Monday 07/[address] Mills 07/12: Patient admitted under Dr. Mills, Patient admitted to regular floor as inpatient. She is scheduled for surgery Monday morning -Pre op labs, CXR, EKG -Dr. Wolf consulted for pre op medical clearance; appreciate recs Elevated LFTs;downtrending Hepatitis panel negative DM;chronic home medication(Victoza) when it is brought from home. hypoglycemia protocol CAD Crestor 5mg, Plavix 75mg HTN Procardia XL 90mg daily COPD Home Advair, nebulizer, Singular Migraines Topamax 50mg daily Floricet Psorasis Benadryl cream as needed Prophylatic Measure Lovenox 40mg SC Protonix 40mg daily SCDs Claritin 10mg Alll management as per Dr. Chand
[2017-07-14] MEDS: Enoxaparin 40 mg Syringe SC SCH (10:47)
[2017-07-14] MEDS: Multiple Vitamins Tab PO SCH (10:48)
[2017-07-14] MEDS: NIFEdipine 90 mg ER Tab PO SCH (10:48)
[2017-07-14] MEDS: Potassium Chloride 20 mEq ER Tab PO SCH (10:49)
--- NOTE | 2017-07-14 11:41 | CARD ---
APPROVED REPORT EXAM: Two-dimensional and M-mode echocardiogram with Doppler and color Doppler. Other Information Quality : GoodRhythm : INDICATION Dyspnea COPD RISK FACTORS Hypertension Diabetes 2D DIMENSIONS IVSd0.9 (0.7-1.1cm)LVDd4.7 (3.9-5.9cm) PWd1.0 (0.7-1.1cm)LVDs3.2 (2.5-4.0cm) FS (%) 32.2 %LVEF (%)60.4 (>50%) M-Mode DIMENSIONS Left Atrium (MM)3.69 (2.5-4.0cm)Aortic Root3.35 (2.2-3.7cm) Aortic Cusp Exc.2.19 (1.5-2.0cm) Mitral Valve MV E Vpputaua46.4cm/sMV A Hmnjluqh92.8cm/sE/A ratio0.8 TDI E/Lateral E'0.0E/Medial E'0.0 Tricuspid Valve TR Peak Zyfsrbye418pd/sTR Peak Gr.15ikXyDTPC27iuKq LEFT VENTRICLE The left ventricle is normal size. There is normal left ventricular wall thickness. The left ventricular function is normal. The left ventricular ejection fraction is within the normal range. There is normal LV segmental wall motion. The left ventricular diastolic function is normal. No left ventricle thrombus noted on this study. There is no ventricular septal defect visualized. There is no left ventricular aneurysm. There is no mass noted in the left ventricle. RIGHT VENTRICLE The right ventricle is normal size. There is normal right ventricular wall thickness. The right ventricular systolic function is normal. ATRIA The left atrium size is normal. The right atrium size is normal. AORTIC VALVE The aortic valve is normal in structure. No aortic regurgitation is present. There is no aortic valvular stenosis. There is no aortic valvular vegetation. MITRAL VALVE The mitral valve is normal in structure. There is no mitral valve stenosis. There is no mitral valve regurgitation noted. TRICUSPID VALVE The tricuspid valve is normal in structure. There is no tricuspid valve regurgitation noted. PULMONIC VALVE The pulmonary valve is normal in structure. There is no pulmonic valvular regurgitation. GREAT VESSELS The aortic root is normal in size. The ascending aorta is normal in size. The pulmonary artery is normal. The IVC is normal in size and collapses >50% with inspiration. PERICARDIAL EFFUSION There is no pericardial effusion. <Conclusion> normal study.
--- NOTE | 2017-07-14 12:24 | CARD ---
APPROVED REPORT EKG Measurement Heart [id number] DC [id number] <Conclusion> Normal sinus rhythm Septal infarct, age undetermined Abnormal ECG
[2017-07-14] MEDS ORDERED: Peg-Electrolyte Oral Soln 4L (Golytely) PO ONE ×2 (17:38→19:00)
[2017-07-14] MEDS ORDERED: Dextrose 5%/0.45% NS 1,000 ML IV SCH (17:45)
[2017-07-15] MEDS: Albuterol 0.083% Inhal Sol (2.5 mg/3 mL) UD IH SCH ×3 (01:19→19:15)
[2017-07-15 07:09] LABS: BASO % 0.9 % (0.0-2.0); EOS # 0.2 K/uL (0.0-0.7); EOS % 6.4 % (0.0-4.0); HEMATOCRIT 32.9 % (34.0-47.0); LYMPH # 1.4 K/uL (1.0-4.3); LYMPH % 39.4 % (20.0-40.0); MEAN CELL VOLUME 82.9 fL (81.0-99.0); MEAN CORPUSCULAR HEMOGLOBIN 26.3 pg (27.0-31.0); MEAN CORPUSCULAR HGB CONC 31.7 g/dL (33.0-37.0); MEAN PLATELET VOLUME 9.1 fL (7.2-11.7); MONO # 0.2 K/uL (0.0-0.8); MONO % 6.9 % (0.0-10.0); NRBC % 0.2 % (0.0-2.0); RED CELL DISTRIBUTION WIDTH 14.2 % (11.5-14.5); WHITE BLOOD COUNT 3.5 K/uL (4.8-10.8)
[2017-07-15] MEDS: Fluticasone-Salmeterol 250-50mcg Diskus IH SCH ×2 (07:42→19:15)
[2017-07-15 07:56] LABS: CHLORIDE 103 mmol/L (98-107); SODIUM 136 mmol/L (132-148)
[2017-07-15 07:59] LABS: ALB/GLOB RATIO 1.3 (1.0-2.1); ALKALINE PHOSPHATASE 82 U/L (38-126); AST/SGOT 39 U/L (14-36); BILIRUBIN,TOTAL 0.5 mg/dL (0.2-1.3); BLOOD UREA NITROGEN 16 mg/dL (7-17); CARBON DIOXIDE 24 mmol/L (22-30); GFR AFRICAN-AMERICAN > 60; TOTAL PROTEIN 7.2 g/dL (6.3-8.3)
[2017-07-15 08:00] LABS: ALT/SGPT 41 U/L (9-52); CALCIUM 8.9 mg/dl (8.6-10.4); GLUCOSE,RANDOM 87 mg/dL (65-105)
[2017-07-15] MEDS: (Novolin R) Insulin Human Regular 100 units/ml vial SC SCH ×4 (08:27→21:44)
[2017-07-15] MEDS: Multiple Vitamins Tab PO SCH (09:32)
[2017-07-15] MEDS: Potassium Chloride 20 mEq ER Tab PO SCH (09:32)
[2017-07-15] MEDS: NIFEdipine 90 mg ER Tab PO SCH (09:34)
[2017-07-15] MEDS: Enoxaparin 40 mg Syringe SC SCH (11:51)
--- NOTE | 2017-07-15 17:52 | CT ---
PROCEDURE: CT abdomen and pelvis dated 07/15/2017 HISTORY: Colon carcinoma COMPARISON: No prior study available for comparison TECHNIQUE: Contiguous axial images of the abdomen and pelvis performed without oral or intravenous contrast . Coronal and Sagittal reformats generated. Note that the examination is limited due to the lack of oral and intravenous contrast material. This CT exam was performed using one or more of the following dose reduction techniques: Automated exposure control, adjustment of the mA and/or kV according to patient size, and/or use of iterative reconstruction technique. Total exam DLP = 12 40.88 mGy-cm. FINDINGS: LOWER THORAX: Tiny hiatal hernia. Lung scott clear without focal consolidation or effusion. No evidence of basilar pneumothorax. Heart size is within range of normal. No significant pericardial effusion. LIVER: No obvious hepatic masses or collections seen on this noncontrast study. Liver exhibits normal size. GALLBLADDER AND BILE DUCTS: Gallbladder surgically absent with metallic clips in the gallbladder fossa. PANCREAS: Visualized portions the pancreas unremarkable SPLEEN: Spleen exhibits normal size and attenuation pattern without mass collection or calcification. ADRENALS: There are no adrenal lesions. KIDNEYS AND URETERS: Kidneys demonstrate symmetric size. No evidence of nephrolithiasis or hydronephrosis. BLADDER: Urinary bladder is incompletely distended which may account for slight thick-walled appearance. Rule out cystitis. REPRODUCTIVE: Unremarkable. APPENDIX: The appendix is not seen with complete certainty . No inflammatory changes right lower quadrant of the abdomen. BOWEL: Evaluation of the bowel is limited due to the lack of oral contrast material. Postoperative changes of the stomach (possibly gastric sleeve surgery). Stomach is incompletely distended which limits evaluation. Visualized loops of small bowel exhibit normal contour and caliber. No evidence of acute mechanical small bowel obstruction. There is a large amount of stool seen throughout the proximal and transverse colon consistent with constipation. . There is non opacified soft tissue seen within the region of the cecum that could represent under opacified stool however given the patient's history of colon carcinoma this could be the site of recently diagnosed cecal carcinoma. Clinical correlation recommended of. Radiopaque material is present within the colon likely due to radiopaque food debris however residual contrast material from a recent imaging study cannot be excluded. Clinical correlation recommended. . Note also made of a more discrete curvilinear radiopaque density in the region of the lumen of the rectum which could represent hyperdense stool. Clinical correlation recommended PERITONEUM: Unremarkable. No fluid collection. No free air. Small fat containing umbilical hernia. LYMPH NODES: Unremarkable. No enlarged lymph nodes. VASCULATURE: Unremarkable. No aortic aneurysm. BONES: Degenerative spondylosis of the lumbar and lower thoracic spine. . There may be degenerative fusion at the L5-S1 level. Clinical correlation recommended. OTHER FINDINGS: None. IMPRESSION: Limited noncontrast study. Postoperative changes of the stomach as above. . Status post cholecystectomy. Large amount of stool seen within the right and transverse colon consistent with fecal retention/ constipation. . There is soft tissue density within the cecal region at mid could represent adherent stool however given the patient's history of colon carcinoma, the possibility of a recently diagnosed cecal lesion not excluded. Clinical correlation recommended. These findings discussed with Dr. Mills at approximately 5:40 p.m. with written down and read back verification.
[2017-07-16] MEDS: Albuterol 0.083% Inhal Sol (2.5 mg/3 mL) UD IH SCH ×4 (01:58→20:37)
[2017-07-16 07:20] LABS: EOS # 0.3 K/uL (0.0-0.7); HEMATOCRIT 31.2 % (34.0-47.0); LYMPH # 1.4 K/uL (1.0-4.3); LYMPH % 39.5 % (20.0-40.0); MEAN CELL VOLUME 82.8 fL (81.0-99.0); MEAN CORPUSCULAR HEMOGLOBIN 26.6 pg (27.0-31.0); MEAN CORPUSCULAR HGB CONC 32.2 g/dL (33.0-37.0); MEAN PLATELET VOLUME 9.3 fL (7.2-11.7); MONO # 0.3 K/uL (0.0-0.8); MONO % 8.1 % (0.0-10.0); RED CELL DISTRIBUTION WIDTH 14.2 % (11.5-14.5); WHITE BLOOD COUNT 3.4 K/uL (4.8-10.8)
[2017-07-16] MEDS: Fluticasone-Salmeterol 250-50mcg Diskus IH SCH ×2 (07:31→20:36)
[2017-07-16 07:33] LABS: CHLORIDE 104 mmol/L (98-107)
[2017-07-16 07:34] LABS: POTASSIUM 4.1 mmol/L (3.6-5.2); SODIUM 136 mmol/L (132-148)
[2017-07-16 07:36] LABS: ALB/GLOB RATIO 0.9 (1.0-2.1); ALKALINE PHOSPHATASE 73 U/L (38-126); AST/SGOT 49 U/L (14-36); BILIRUBIN,TOTAL 0.6 mg/dL (0.2-1.3); BLOOD UREA NITROGEN 11 mg/dL (7-17); CARBON DIOXIDE 25 mmol/L (22-30); GFR AFRICAN-AMERICAN > 60; TOTAL PROTEIN 7.9 g/dL (6.3-8.3)
[2017-07-16 07:37] LABS: ALT/SGPT 51 U/L (9-52); CALCIUM 9.2 mg/dl (8.6-10.4); GLUCOSE,RANDOM 85 mg/dL (65-105)
[2017-07-16] MEDS ORDERED: Peg-Electrolyte Oral Soln 4L (Golytely) PO ONE (08:00)
[2017-07-16] MEDS: (Novolin R) Insulin Human Regular 100 units/ml vial SC SCH ×4 (08:02→22:08)
[2017-07-16] MEDS: Dextrose 5%/0.45% NS 1,000 ML IV SCH ×2 (08:06→17:30)
[2017-07-16] MEDS: Multiple Vitamins Tab PO SCH (09:12)
[2017-07-16] MEDS: Potassium Chloride 20 mEq ER Tab PO SCH (09:13)
[2017-07-16] MEDS: NIFEdipine 90 mg ER Tab PO SCH (09:14)
--- NOTE | 2017-07-16 13:52 | CARD ---
APPROVED REPORT Protocol: PHARMACOLOGICAL STRESS Test Type: LEXISCAN Test Indications: PRE OP Medications: LIST SCAN Medical History: PRE OP CARDIOVASCULAR, COLON CA,HX COPD,DM,HTN Target HR: 161 bpm Resting ECG: normal Resting Heart Rate: 77 bpm Resting Blood Pressure: 131/78mmHg submaximum (85%): 137 bpm TEST SUMMARY [id number]/78.0. INFUSIONDOSE 100:[id number]/78.0. [id number]/70.0. PROCEDURE Pharmacologic stress testing was performed using 0.4mg per 5ml of regadenoson given intravenously over 7-10 seconds. Reversal agent aminophyline 125 mg, given intravenously for Chest Pain. POST EXERCISE Reason for Termination: Protocol Completed Target HR: No Max HR: 80 bpm 66% of Maximum Predicted HR: 161 bpm Exercise duration: 00:30 min:sec, 0 Stage Exercise capacity: 1.0METs Max Blood Pressure: 131/78mmHg Blood Pressure response to exercise: normal resting BP - appropriate response Heart Rate response to exercise: appropriate Chest Pain: No, none Angina index: 0 Arrhythmia: No, none ST Change: No, none Deviation: 0 mm INTERPRETATION Stress EKG Conclusion: AWIAT NUCLEAR IMAGES EXAM: Myocardial Perfusion STRESS/REST Imaging Protocol The imaging protocol used to acquire images was Stress Tc-99m/rest Tc-99m 1 day Rest Spect myocardial perfusion imaging was performed in supine position 45 minutes following the injection of 29.7 mCi of Tc-99 Myoview. Gated Stress Spect was performed 45 minutes after intravenous 11.6 mCi Tc-99 Myoview injection. The images were gated to evaluate regional wall motion and calculate ventricular ejection fraction.Images were reconstructed using backfilter projection method in short horizontal and verticle long axis. Spect slices were generated. RESTING DATA EDV74.84dpPF7.40L/min ESV24.00mlMyocardial Ftgs525.00g Av. Heart Rate68.00bpm EF68.00% STRESS DATA EDV90.44stET5.20L/min ESV28.00mlMyocardial Sxuk988.00g EF69.00% Regional WT score at stress:1.00 Regional WM score at stress:0.00 Summed WT score at stress:7.00 Av. Heart Rate68.00bpmSummed WM score at stress:7.00 LV Perf. Quant 17 Seg. SSS6.00 17 Seg. SRS0.00 17 Seg. SDS6.00 Stress Defect Extent (% LAD)5.00Rest Defect Extent (% LAD)0.00Rev. Defect Extent (% LAD)4.40 Stress Defect Extent (% LCX)35.00Rest Defect Extent (% LCX)0.00Rev. Defect Extent (% LCX)35.00 Stress Defect Extent (% RCA)2.20Rest Defect Extent (% RCA)0.00Rev. Defect Extent (% RCA)2.20 Stress Defect Extent (% BERRY)14.10Rest Defect Extent (% BERRY)0.00Rev. Defect Extent (% BERRY)13.50 Other Information Quality:Excellent IMPRESSION Normal Myocardial Perfusion exercise stress study Global LV Function: Normal Stress Test Summary: Nondiagnostic LV Perfusion Summary: Normal Left Ventricle LV Size/Shape: The left ventricle is normal size. LV Thickness: There is normal left ventricular wall thickness. LV Function:Left ventricle systolic function is normal. The Ejection Fraction is 55-60%. Regional Wall Motion:No regional wall motion abnormalities noted. Metabolism/Perfusion There are no perfusion/metabolism defects. Conclusion 1. The stress and resting images show normal perfusion.
[2017-07-17] MEDS: Albuterol 0.083% Inhal Sol (2.5 mg/3 mL) UD IH SCH ×3 (01:43→19:20)
[2017-07-17] MEDS: Dextrose 5%/0.45% NS 1,000 ML IV SCH ×2 (05:00→14:25)
[2017-07-17 07:21] LABS: BASO % 0.8 % (0.0-2.0); EOS # 0.2 K/uL (0.0-0.7); EOS % 5.6 % (0.0-4.0); HEMATOCRIT 31.3 % (34.0-47.0); LYMPH # 1.1 K/uL (1.0-4.3); LYMPH % 31.5 % (20.0-40.0); MEAN CELL VOLUME 82.9 fL (81.0-99.0); MEAN CORPUSCULAR HEMOGLOBIN 26.6 pg (27.0-31.0); MEAN PLATELET VOLUME 9.1 fL (7.2-11.7); MONO # 0.3 K/uL (0.0-0.8); MONO % 8.6 % (0.0-10.0); WHITE BLOOD COUNT 3.5 K/uL (4.8-10.8)
[2017-07-17 07:46] LABS: CHLORIDE 104 mmol/L (98-107); POTASSIUM 3.6 mmol/L (3.6-5.2); SODIUM 138 mmol/L (132-148)
[2017-07-17 07:48] LABS: AST/SGOT 75 U/L (14-36); BILIRUBIN,TOTAL 0.5 mg/dL (0.2-1.3); CARBON DIOXIDE 24 mmol/L (22-30); GFR AFRICAN-AMERICAN > 60
[2017-07-17 07:49] LABS: ALB/GLOB RATIO 1.4 (1.0-2.1); ALKALINE PHOSPHATASE 92 U/L (38-126); ALT/SGPT 77 U/L (9-52); BLOOD UREA NITROGEN 8 mg/dL (7-17); CALCIUM 8.7 mg/dl (8.6-10.4); GLUCOSE,RANDOM 87 mg/dL (65-105); TOTAL PROTEIN 6.7 g/dL (6.3-8.3)
[2017-07-17] MEDS: (Novolin R) Insulin Human Regular 100 units/ml vial SC SCH ×3 (08:21→23:48)
[2017-07-17] MEDS: Fluticasone-Salmeterol 250-50mcg Diskus IH SCH ×2 (08:43→19:20)
[2017-07-17] MEDS: Potassium Chloride 20 mEq ER Tab PO SCH (10:48)
[2017-07-17] MEDS: Multiple Vitamins Tab PO SCH (10:48)
[2017-07-17] MEDS: NIFEdipine 90 mg ER Tab PO SCH (10:48)
--- NOTE | 2017-07-17 12:06 | CP.PCM.PN ---
Subjective - Date & Time of Evaluation Date of Evaluation: 07/17/17 Time of Evaluation: 12:00 - Subjective Subjective: Progress note. Service for Dr. Chand Pt seen and examined at bedside. No acute distress. No events overnight. Pt going for surgery today. Has some abd pain. No fevers, chills. Objective - Vital Signs/Intake and Output Vital Signs (last 24 hours): Temp Pulse Resp BP Pulse Ox 98.4 F 78 20 112/76 99 07/17/17 07:57 07/17/17 07:57 07/17/17 07:57 07/17/17 07:57 07/17/17 07:57 Intake and Output: 07/17/17 07/17/17 06:59 18:59 Intake Total 1800 Balance 1800 - Medications Medications: Current Medications Acetaminophen/Butalbital/Caffeine (Fioricet) 1 tab PO Q8 PRN PRN Reason: Pain, moderate (4-7) Last Admin: 07/14/17 14:59 Dose: 1 tab Albuterol Sulfate (Albuterol 0.083% Inhal Nasra (2.5 Mg/3 Ml) Ud) 2.5 mg IH RQ6 [facility] Last Admin: 07/17/17 08:43 Dose: 2.5 mg Clopidogrel Bisulfate (Plavix) 75 mg PO DAILY [facility] Last Admin: 07/13/17 09:51 Dose: Not Given Dextrose (Dextrose 50% Inj) 0 ml IV STAT PRN; Protocol PRN Reason: Hyglycemia Protocol Dextrose (Glutose 15) 0 gm PO ONCE PRN; Protocol PRN Reason: Hypoglycemia Protocol Famotidine (Pepcid) 20 mg PO BID [facility] Last Admin: 07/17/17 10:48 Dose: Not Given Dextrose/Sodium Chloride (Dextrose 5%/0.45% Ns 1000 Ml) 1,000 mls @ 100 mls/hr IV .Q10H [facility] Last Admin: 07/17/17 05:00 Dose: 100 mls/hr Insulin Human Regular (Novolin R) 0 unit SC ACHS [facility] PRN Reason: Protocol Last Admin: 07/17/17 11:29 Dose: Not Given Loratadine (Claritin) 10 mg PO DAILY [facility] Last Admin: 07/17/17 10:49 Dose: Not Given Multivitamins (Hexavitamin) 1 tab PO DAILY [facility] Last Admin: 07/17/17 10:48 Dose: Not Given Nifedipine (Procardia Xl) 90 mg PO DAILY [facility] Last Admin: 07/17/17 10:48 Dose: 90 mg Ondansetron HCl (Zofran Inj) 4 mg IVP Q8H PRN PRN Reason: Nausea/Vomiting Last Admin: 07/14/17 14:49 Dose: 4 mg Potassium Chloride (K-Dur 20 Meq Er Tab) 20 meq PO DAILY [facility] Last Admin: 07/17/17 10:48 Dose: Not Given Rosuvastatin Calcium (Crestor) 5 mg PO HS [facility] Last Admin: 07/16/17 22:05 Dose: 5 mg Fluticasone/Salmeterol (Advair Diskus 250/50) 1 puff IH RQ12 [facility] Last Admin: 07/17/17 08:43 Dose: 1 puff Topiramate (Topamax) 50 mg PO DAILY [facility] Last Admin: 07/17/17 10:48 Dose: 50 mg Zinc Acetate/Diphenhydramine (Benadryl 1% Zinc Acetate -0.1%) 1 cre TOP BID PRN PRN Reason: Itching / Pruritus Last Admin: 07/12/17 15:26 Dose: 1 applic - Labs Labs: 07/17/17 07:07 07/17/17 07:07 PT 10.8 SECONDS (9.7-12.2) 07/12/17 12:56 INR 1.0 07/12/17 12:56 APTT 30 SECONDS (21-34) 07/12/17 12:56 - Constitutional Appears: Non-toxic, No Acute Distress - Head Exam Head Exam: ATRAUMATIC, NORMAL INSPECTION, NORMOCEPHALIC - Eye Exam Eye Exam: EOMI - ENT Exam ENT Exam: Mucous Membranes Moist - Neck Exam Neck Exam: Full ROM, Normal Inspection - Respiratory Exam Respiratory Exam: NORMAL BREATHING PATTERN. absent: Respiratory Distress - Cardiovascular Exam Cardiovascular Exam: +S1, +S2 - GI/Abdominal Exam GI & Abdominal Exam: Tenderness - Extremities Exam Extremities Exam: Full ROM, Normal Inspection - Neurological Exam Neurological Exam: Alert, Awake, Oriented x3 - Psychiatric Exam Psychiatric exam: Normal Affect, Normal Mood - Skin Skin Exam: Dry, Intact, Normal Color, Warm Assessment and Plan - Assessment and Plan (Free Text) Assessment: This is a 61 year old female with a past medical history of DM, CAD, HTN, COPD, Migraines, and seizure disorder, presenting with Colon Cancer 07/13; patient is for surgery Monday 07/[address] Mills 07/12: Patient admitted under Dr. Mills, Patient admitted to regular floor as inpatient. She is scheduled for surgery Monday morning -Pre op labs, CXR, EKG -Dr. Wolf consulted for pre op medical clearance; appreciate recs Elevated LFTs;downtrending Hepatitis panel negative DM;chronic home medication(Victoza) when it is brought from home. hypoglycemia protocol CAD Crestor 5mg, Plavix 75mg HTN Procardia XL 90mg daily COPD Home Advair, nebulizer, Singular Migraines Topamax 50mg daily Floricet Psorasis Benadryl cream as needed Prophylatic Measure Lovenox 40mg SC Protonix 40mg daily SCDs Claritin 10mg Alll management as per Dr. Chand
[2017-07-17] MEDS ORDERED: cefTRIAXone IV 1 gm in Dextros 50 ML IVPB ONE (15:20)
[2017-07-17] MEDS ORDERED: metroNIDAZOLE IV 500 mg/100 ml 500 MG/100 ML BAG ONE (15:21)
[2017-07-17] MEDS ORDERED: Propofol 10 mg/ml Inj (20 ML) ONE (15:30)
[2017-07-17] MEDS ORDERED: Midazolam 2 MG/2 ML VIAL ONE (15:30)
[2017-07-17] MEDS ORDERED: Lactated Ringer's 1,000 ML IV ONE ×2 (15:35→17:10)
[2017-07-17] MEDS ORDERED: Succinylcholine Chloride 20 mg/ml Syr (5 ml) IV ONE (15:36)
[2017-07-17] MEDS ORDERED: Rocuronium 10 mg/ml (5 ml) ONE (17:13)
[2017-07-17] MEDS ORDERED: HYDROmorphone 0.5 mg/0.5 ml ISec IVP PRN (17:30)
[2017-07-17] MEDS ORDERED: Morphine Monoject Barrel PCA 1mg/ml IV PRN (17:31)
[2017-07-17] MEDS ORDERED: HYDROmorphone 0.5 mg/0.5 ml ISec ONE ×2 (18:13→18:45)
[2017-07-17] MEDS: HYDROmorphone 0.5 mg/0.5 ml ISec IVP PRN ×4 (18:14→19:49)
[2017-07-17 18:40] LABS: BASO % 0.4 % (0.0-2.0); EOS # 0.2 K/uL (0.0-0.7); EOS % 1.9 % (0.0-4.0); HEMATOCRIT 37.7 % (34.0-47.0); LYMPH # 2.9 K/uL (1.0-4.3); LYMPH % 23.9 % (20.0-40.0); MEAN CELL VOLUME 84.3 fL (81.0-99.0); MEAN CORPUSCULAR HEMOGLOBIN 26.1 pg (27.0-31.0); MEAN PLATELET VOLUME 8.6 fL (7.2-11.7); MONO # 0.4 K/uL (0.0-0.8); MONO % 3.5 % (0.0-10.0); NRBC % 0.1 % (0.0-2.0); RED CELL DISTRIBUTION WIDTH 14.5 % (11.5-14.5); WHITE BLOOD COUNT 11.9 K/uL (4.8-10.8)
[2017-07-17] MEDS: Morphine Monoject Barrel PCA 1mg/ml IV PRN ×2 (19:55→20:25)
[2017-07-17] MEDS: Potassium Ch 20mEq in D5-1/2NS 1,000 ML IV SCH (21:06)
--- NOTE | 2017-07-17 21:22 | CP.PCM.CON ---
History of Present Illness - History of Present Illness History of Present Illness: CCM 61 yo black female with hx DM /HTN /HLD /CAAD /COPD /CATERINA /Siezure /Migraines / Anemia /TIA / Colon Ca admitted for surgery. Pt had Right Hemicolectomy under GA. EBL 100cc. Urine output 500cc. Seen in RR and admits pain. No sob or nausea. ROS- as noted All- ASA/ Bee venom / Sulfamethoxazole Social- ex-tob/ no etoh or drugs Meds- reviewed FH- Unknown PE T-98.1 P-85 R-10 BP-129/67 Lerthargic, responsive, nad Neck- on jvd lungs- bilat bs Heart-rr ABd- dressing intact, bs+, soft Ext- no edema Labs & x-rays -reviewed A&P s/p Right Hemicolectomy Colon Ca HTN DM HLD COPD CATERINA Seizures Anemia cont IV fluid cont meds optimize analgesia f/u labs incentive spirometry DVT prophylaxis bs control Past Patient History - Infectious Disease Hx of Infectious Diseases: None - Past Social History Smoking Status: Former Smoker - CARDIAC Hx Hypertension: Yes - PULMONARY Hx Chronic Obstructive Pulmonary Disease (COPD): Yes - NEUROLOGICAL Hx Migraine: Yes Hx Seizures: Yes Hx Transient Ischemic Attacks (TIA): Yes - ENDOCRINE/METABOLIC Hx Diabetes Mellitus Type 2: Yes - HEMATOLOGICAL/ONCOLOGICAL Hx Anemia: Yes - INTEGUMENTARY Hx Eczema: Yes - MUSCULOSKELETAL/RHEUMATOLOGICAL Hx Arthritis: Yes (BACK W/ SURGERY) - GASTROINTESTINAL Hx Gastrointestinal Disorders: Yes Other/Comment: GASTROPARESIS - PSYCHIATRIC Hx Substance Use: No - SURGICAL HISTORY Hx Appendectomy: Yes Hx Cholecystectomy: Yes - ANESTHESIA Hx Anesthesia: Yes Hx Anesthesia Reactions: No Meds Allergies/Adverse Reactions: Allergies Allergy/AdvReac Type Severity Reaction Status Date / Time aspirin Allergy Verified 07/12/17 11:28 bee venom protein (honey bee) Allergy Verified 07/12/17 11:28 sulfamethoxazole Allergy Verified 07/12/17 11:28 [From Bactrim] trimethoprim [From Bactrim] Allergy Verified 07/12/17 11:28 OIL BASED DYE Allergy Uncoded 07/12/17 11:28 - Medications Medications: Current Medications Acetaminophen/Butalbital/Caffeine (Fioricet) 1 tab PO Q8 PRN PRN Reason: Pain, moderate (4-7) Last Admin: 07/14/17 14:59 Dose: 1 tab Albuterol Sulfate (Albuterol 0.083% Inhal Nasra (2.5 Mg/3 Ml) Ud) 2.5 mg IH RQ6 [facility] Last Admin: 07/17/17 19:20 Dose: Not Given Clopidogrel Bisulfate (Plavix) 75 mg PO DAILY [facility] Last Admin: 07/13/17 09:51 Dose: Not Given Dextrose (Dextrose 50% Inj) 0 ml IV STAT PRN; Protocol PRN Reason: Hyglycemia Protocol Dextrose (Glutose 15) 0 gm PO ONCE PRN; Protocol PRN Reason: Hypoglycemia Protocol Hydromorphone HCl (Dilaudid) 0.5 mg IVP Q5M PRN PRN Reason: Pain, moderate (4-7) Last Admin: 07/17/17 18:45 Dose: 0.5 mg Dextrose/Sodium Chloride (Dextrose 5%/0.45% Ns 1000 Ml) 1,000 mls @ 100 mls/hr IV .Q10H [facility] Last Admin: 07/17/17 14:25 Dose: Not Given Potassium Chloride/Dextrose/Sod Cl (Potassium Chl 20 Meq In D5-1/2ns) 1,000 mls @ 125 mls/hr IV .Q8H [facility] Last Admin: 07/17/17 21:06 Dose: 125 mls/hr Ceftriaxone Sodium 1 gm/ (Sodium Chloride) 100 mls @ 100 mls/hr IVPB DAILY [facility] Metronidazole (Flagyl) 250 mg in 50 mls @ 100 mls/hr IVPB Q8 [facility] Stop: 07/22/17 22:01 Insulin Human Regular (Novolin R) 0 unit SC ACHS [facility] PRN Reason: Protocol Last Admin: 07/17/17 11:29 Dose: Not Given Loratadine (Claritin) 10 mg PO DAILY [facility] Last Admin: 07/17/17 10:49 Dose: Not Given Morphine Sulfate/Sodium Chloride (Morphine Echocardiograph Technician Monoject Barrel) 30 mg IV Q4H PRN; Protocol PRN Reason: Pain, moderate (4-7) Last Admin: 07/17/17 20:25 Dose: 30 mg Multivitamins (Hexavitamin) 1 tab PO DAILY [facility] Last Admin: 07/17/17 10:48 Dose: Not Given Nifedipine (Procardia Xl) 90 mg PO DAILY [facility] Last Admin: 07/17/17 10:48 Dose: 90 mg Ondansetron HCl (Zofran Inj) 4 mg IVP Q8H PRN PRN Reason: Nausea/Vomiting Last Admin: 07/14/17 14:49 Dose: 4 mg Pantoprazole Sodium (Protonix Inj) 40 mg IVP DAILY [facility] Last Admin: 07/17/17 13:08 Dose: 40 mg Potassium Chloride (K-Dur 20 Meq Er Tab) 20 meq PO DAILY [facility] Last Admin: 07/17/17 10:48 Dose: Not Given Rosuvastatin Calcium (Crestor) 5 mg PO HS [facility] Last Admin: 07/17/17 21:12 Dose: Not Given Fluticasone/Salmeterol (Advair Diskus 250/50) 1 puff IH RQ12 [facility] Last Admin: 07/17/17 19:20 Dose: Not Given Topiramate (Topamax) 50 mg PO DAILY [facility] Last Admin: 07/17/17 10:48 Dose: 50 mg Zinc Acetate/Diphenhydramine (Benadryl 1% Zinc Acetate -0.1%) 1 cre TOP BID PRN PRN Reason: Itching / Pruritus Last Admin: 07/12/17 15:26 Dose: 1 applic Results - Vital Signs Recent Vital Signs: Last Vital Signs Temp 98.9 F 07/17/17 20:00 Pulse 91 H 07/17/17 20:00 Resp 14 07/17/17 20:00 BP 127/74 07/17/17 20:00 Pulse Ox 98 07/17/17 20:00 - Labs Result Diagrams: 07/17/17 18:00 07/17/17 07:07 Labs: Laboratory Results - last 24 hr 07/17/17 07/17/17 07/17/17 01:36 07:07 07:07 WBC 3.5 L RBC 3.78 L Hgb 10.0 L Hct 31.3 L MCV 82.9 MCH 26.6 L MCHC 32.0 L RDW 14.0 Plt Count 231 MPV 9.1 Neut % (Auto) 53.5 Lymph % (Auto) 31.5 [place] % (Auto) 8.6 Eos % (Auto) 5.6 H Baso % (Auto) 0.8 Neut # 1.9 Lymph # 1.1 [place] # 0.3 Eos # 0.2 Baso # 0.0 Sodium 138 Potassium 3.6 Chloride 104 Carbon Dioxide 24 Anion Gap 14 BUN 8 Creatinine 0.9 Est GFR ( Amer) > 60 Est GFR (Non-Af Amer) > 60 POC Glucose (mg/dL) 107 Random Glucose 87 Calcium 8.7 Total Bilirubin 0.5 AST 75 H D ALT 77 H D Alkaline Phosphatase 92 Total Protein 6.7 Albumin 3.9 Globulin 2.8 Albumin/Globulin Ratio 1.4 07/17/17 07/17/17 07/17/17 07:41 11:30 18:00 WBC 11.9 H D RBC 4.47 Hgb 11.7 Hct 37.7 MCV 84.3 MCH 26.1 L MCHC 31.0 L RDW 14.5 Plt Count 244 MPV 8.6 Neut % (Auto) 70.3 Lymph % (Auto) 23.9 [place] % (Auto) 3.5 Eos % (Auto) 1.9 Baso % (Auto) 0.4 Neut # 8.4 H Lymph # 2.9 [place] # 0.4 Eos # 0.2 Baso # 0.0 Sodium Potassium Chloride Carbon Dioxide Anion Gap BUN Creatinine Est GFR ( Amer) Est GFR (Non-Af Amer) POC Glucose (mg/dL) 116 H 123 H Random Glucose Calcium Total Bilirubin AST ALT Alkaline Phosphatase Total Protein Albumin Globulin Albumin/Globulin Ratio Assessment & Plan (1) Colon cancer Status: Acute (2) S/P right hemicolectomy Status: Acute (3) HTN (hypertension) Status: Chronic (4) Diabetes Status: Chronic (5) Seizure Status: Chronic
[2017-07-17] MEDS ORDERED: metroNIDAZOLE IV 500 mg/100 ml 250 MG in Premixed IV 1 EA IVPB SCH (22:00)
[2017-07-17] MEDS: metroNIDAZOLE IV 250mg/50 ml 250 MG/50 ML BAG IVPB SCH (22:01)
[2017-07-17 22:11] LABS: CHLORIDE 106 mmol/L (98-107); POTASSIUM 4.1 mmol/L (3.6-5.2); SODIUM 135 mmol/L (132-148)
[2017-07-17 22:13] LABS: GFR AFRICAN-AMERICAN > 60
[2017-07-17 22:14] LABS: ALB/GLOB RATIO 0.9 (1.0-2.1); ALKALINE PHOSPHATASE 108 U/L (38-126); ALT/SGPT 136 U/L (9-52); AST/SGOT 197 U/L (14-36); BILIRUBIN,TOTAL 0.6 mg/dL (0.2-1.3); BLOOD UREA NITROGEN 5 mg/dL (7-17); CALCIUM 8.6 mg/dl (8.6-10.4); CARBON DIOXIDE 19 mmol/L (22-30); GLUCOSE,RANDOM 143 mg/dL (65-105); TOTAL PROTEIN 7.3 g/dL (6.3-8.3)
[2017-07-18] MEDS: Albuterol 0.083% Inhal Sol (2.5 mg/3 mL) UD IH SCH ×4 (01:15→19:49)
--- NOTE | 2017-07-18 04:02 | OP ---
PROCEDURE DATE: 07/17/2017 PREOPERATIVE DIAGNOSIS: Cecal carcinoma. POSTOPERATIVE DIAGNOSIS: Cecal carcinoma. PROCEDURE PERFORMED: Right hemicolectomy. SURGEON: Demar Mills MD ANESTHESIA: General. BLOOD LOSS: 100 mL. POSTOPERATIVE CONDITION: Stable. INDICATIONS FOR SURGERY: This is a 61-year-old female with multiple medical problems including ischemic heart disease and COPD. She was admitted to the hospital several days ago, found to have a cecal carcinoma and is now taken to the operating room for a right hemicolectomy. GROSS FINDINGS: There was no evidence of metastasis. There was a plum-sized tumor in the cecum . There were some previous adhesions from laparoscopic surgery. DESCRIPTION OF PROCEDURE: The patient was taken to the operating room. General anesthesia was administered and the abdomen was prepped and draped. The abdomen was entered through a midline incision and an abdominal exploration was carried out. No evidence of metastasis was found. So the right colon was mobilized along the peritoneal attachments. The hepatic flexure was noted to be densely adherent to the liver surface and short, making this dissection difficult; however, no liver bleeding was encountered and the right colon was fully mobilized once it was taken off the liver. There was bleeding noted from the middle colic artery, and this was repaired with Prolene. Adhesions were also which had been taken down, there were noted to be serosal tear of both the transverse colon and the ileum and these were repaired with silk. Next, the ROSALIND was used to divide the terminal ilium and the ascending colon with the colon being somewhat dilated. Next, the mesentery was divided between clamps down to its origin at the major vessels using heavy Vicryl ties. The ileocolonic anastomosis was carried out in a standard fashion using ROSALIND and TA-60 stapler. The mesentery was re-approximated using 0 chromic suture. The abdomen is irrigated with copious amounts of saline solution. The incision was closed with a running double-stranded number 1 PDS suture. The subcutaneous tissue was vigorously irrigated and subcutaneous space was closed with 2-0 Vicryl on a CT1 needle. Next, the skin was closed with clips. The patient tolerated the procedure well. Returned to recovery room in stable condition. Demar Mills MD
[2017-07-18] MEDS: Potassium Ch 20mEq in D5-1/2NS 1,000 ML IV SCH ×4 (04:30→23:35)
[2017-07-18 05:59] LABS: BASO % 0.2 % (0.0-2.0); HEMATOCRIT 33.6 % (34.0-47.0); LYMPH # 0.7 K/uL (1.0-4.3); MEAN CELL VOLUME 83.2 fL (81.0-99.0); MEAN CORPUSCULAR HEMOGLOBIN 25.7 pg (27.0-31.0); MEAN CORPUSCULAR HGB CONC 30.9 g/dL (33.0-37.0); MONO # 0.3 K/uL (0.0-0.8); MONO % 3.1 % (0.0-10.0); PLATELET COUNT 237 K/uL (130-400); RED CELL DISTRIBUTION WIDTH 13.9 % (11.5-14.5); WHITE BLOOD COUNT 11.1 K/uL (4.8-10.8)
[2017-07-18] MEDS: metroNIDAZOLE IV 250mg/50 ml 250 MG/50 ML BAG IVPB SCH ×3 (06:00→21:30)
[2017-07-18 06:23] LABS: CHLORIDE 102 mmol/L (98-107); POTASSIUM 4.8 mmol/L (3.6-5.2); SODIUM 134 mmol/L (132-148)
[2017-07-18 06:25] LABS: GFR AFRICAN-AMERICAN > 60
[2017-07-18 06:26] LABS: ALKALINE PHOSPHATASE 114 U/L (38-126); ALT/SGPT 570 U/L (9-52); AST/SGOT 719 U/L (14-36); BILIRUBIN,TOTAL 0.5 mg/dL (0.2-1.3); BLOOD UREA NITROGEN 5 mg/dL (7-17); CARBON DIOXIDE 24 mmol/L (22-30); GLUCOSE,RANDOM 130 mg/dL (65-105); TOTAL PROTEIN 7.3 g/dL (6.3-8.3)
[2017-07-18 06:27] LABS: CALCIUM 8.4 mg/dl (8.6-10.4); PHOSPHOROUS 3.5 mg/dL (2.5-4.5)
[2017-07-18 06:28] LABS: MAGNESIUM 1.7 mg/dL (1.6-2.3)
[2017-07-18] MEDS: (Novolin R) Insulin Human Regular 100 units/ml vial SC SCH ×3 (06:47→18:05)
[2017-07-18 08:59] LABS: LARGE PLATELETS PRESENT; NEUTROPHIL 69 % (50-75); TOTAL CELLS COUNTED 100
[2017-07-18] MEDS: Fluticasone-Salmeterol 250-50mcg Diskus IH SCH ×2 (09:02→19:49)
--- NOTE | 2017-07-18 10:31 | CP.CCUPN ---
<CarolineDiana Shruthi - Last Filed: 07/18/17 14:19> CCU Subjective - Physician Review Subjective (Free Text): Patient seen and examined at bedside and in no acute distress. Patient says her abdominal pain is 2/10 today. Patient is sitting comfortably in the chair. Patient denies shortness of breath, chest pain, abdominal pain, nausea, vomiting. Patient has had no bowel movement or flatus. CCU Objective - Vital Signs / Intake & Output Vital Signs (Last 4 hours): Vital Signs Temp Pulse Resp BP Pulse Ox 07/18/17 09:00 86 12 96 07/18/17 08:52 100 H 14 140/58 L 96 07/18/17 08:30 84 12 97 07/18/17 08:00 98.2 F 86 11 L 97 07/18/17 07:51 86 12 125/72 97 07/18/17 07:30 85 12 96 07/18/17 07:00 88 11 L 96 07/18/17 06:51 117/68 07/18/17 06:30 93 H 12 94 L Intake and Output (Last 8hrs): Intake & Output 07/17/17 07/18/17 07/18/17 22:59 06:59 14:59 Intake Total 938 988 375 Output Total 930 615 130 Balance 8 373 245 Intake: Intake, IV Amount 938 988 375 Left Wrist 700 right hand 238 988 375 Oral 0 0 0 Output: Gastric Amount 150 10 Right Nares 150 10 Urine 930 465 120 Urethral (Dickens) 130 465 120 Emesis 0 Other: # Voids Urine, Voided 2 # Bowel Movements 0 0 0 - Physical Exam Head: Positive for: Atraumatic, Normocephalic Extroacular Muscles: Positive for: EOMI Conjunctiva: Positive for: Normal Mouth: Positive for: Moist Mucous Membranes Respiratory/Chest: Positive for: Clear to Auscultation, Good Air Exchange. Negative for: Respiratory Distress, Accessory Muscle Use Cardiovascular: Positive for: Regular Rate and Rhythm, Normal S1, S2 Abdomen: Positive for: Tenderness (appropriate s/p hemicolectomy ) Upper Extremity: Positive for: Normal Inspection Lower Extremity: Positive for: Normal Inspection Skin: Positive for: Warm. Negative for: Rashes Psychiatric: Positive for: Alert, Oriented x 3 - Medications Active Medications: Active Medications Generic Name Dose Route Start Last Admin Trade Name Freq PRN Reason Stop Dose Admin Albuterol Sulfate 2.5 mg 07/13/17 20:00 07/18/17 08:16 Albuterol 0.083% Inhal Nasra (2.5 Mg/3 Ml) Ud IH 2.5 mg RQ6 ISIDORO Administration Clopidogrel Bisulfate 75 mg 07/12/17 15:00 07/13/17 09:51 Plavix PO Not Given DAILY ISIDORO Dextrose 0 ml 07/12/17 14:24 Dextrose 50% Inj IV STAT PRN Hyglycemia Protocol Protocol Dextrose 0 gm 07/12/17 14:24 Glutose 15 PO ONCE PRN Hypoglycemia Protocol Protocol Heparin Sodium (Porcine) 5,000 units 07/18/17 06:00 07/18/17 08:00 Heparin SC 5,000 units Q8 ISIDORO Administration Hydromorphone HCl 0.5 mg 07/17/17 18:12 07/17/17 19:49 Dilaudid IVP 0.5 mg Q5M PRN Administration Pain, moderate (4-7) Potassium Chloride/Dextrose/Sod Cl 1,000 mls @ 125 mls/hr 07/17/17 17:45 04:30 Potassium Chl 20 Meq In D5-1/2ns IV 125 mls/hr .Q8H ISIDORO Administration Ceftriaxone Sodium 1 gm/ 100 mls @ 100 mls/hr 07/18/17 10:00 Sodium Chloride IVPB DAILY ISIDORO Metronidazole 250 mg in 50 mls @ 100 mls/hr 07/17/17 22:00 07/18/17 06:00 Flagyl IVPB 07/22/17 22:01 100 mls/hr Q8 ISIDORO Administration Insulin Human Regular 0 unit 07/18/17 00:00 07/18/17 06:47 Novolin R SC 2 unit Q6H ISIDORO Administration Protocol Loratadine 10 mg 07/13/17 10:00 07/18/17 10:12 Claritin PO Not Given DAILY ISIDORO Morphine Sulfate/Sodium Chloride 30 mg 07/17/17 18:12 07/17/17 20:25 Morphine Quality Assurance Assessor Monoject Barrel IV 30 mg Q4H PRN Administration Pain, moderate (4-7) Protocol Multivitamins 1 tab 07/13/17 10:00 07/17/17 10:48 Hexavitamin PO Not Given DAILY ISIDORO Nifedipine 90 mg 07/12/17 16:00 07/17/17 10:48 Procardia Xl PO 90 mg DAILY ISIDORO Administration Ondansetron HCl 4 mg 07/14/17 14:30 07/14/17 14:49 Zofran Inj IVP 4 mg Q8H PRN Administration Nausea/Vomiting Pantoprazole Sodium 40 mg 07/17/17 12:30 07/17/17 13:08 Protonix Inj IVP 40 mg DAILY ISIDORO Administration Fluticasone/Salmeterol 1 puff 07/12/17 22:00 07/18/17 09:02 Advair Diskus 250/50 IH 1 puff RQ12 ISIDORO Administration Topiramate 50 mg 07/14/17 10:00 07/17/17 10:48 Topamax PO 50 mg DAILY ISIDORO Administration Zinc Acetate/Diphenhydramine 1 cre 07/12/17 14:06 07/12/17 15:26 Benadryl 1% Zinc Acetate -0.1% TOP 1 applic BID PRN Administration Itching / Pruritus - Patient Studies Lab Studies: Lab Studies 07/18/17 07/18/17 07/18/17 Range/Units 05:26 04:00 04:00 WBC (4.8-10.8) K/uL RBC (3.80-5.20) Mil/uL Hgb (11.0-16.0) g/dL Hct (34.0-47.0) % MCV (81.0-99.0) fL MCH (27.0-31.0) pg MCHC (33.0-37.0) g/dL RDW (11.5-14.5) % Plt Count (130-400) K/uL MPV (7.2-11.7) fL Neut % (Auto) (50.0-75.0) % Lymph % (Auto) (20.0-40.0) % [place] % (Auto) (0.0-10.0) % Eos % (Auto) (0.0-4.0) % Baso % (Auto) (0.0-2.0) % Neut # (1.8-7.0) K/uL Lymph # (1.0-4.3) K/uL [place] # (0.0-0.8) K/uL Eos # (0.0-0.7) K/uL Baso # (0.0-0.2) K/uL Neutrophils % (Manual) (50-75) % Band Neutrophils % (0-2) % Lymphocytes % (Manual) (20-40) % Monocytes % (Manual) (0-10) % Platelet Estimate (NORMAL) Large Platelets Hypochromasia (manual) [place] Cells Sodium 134 (132-148) mmol/L Potassium 4.8 (3.6-5.2) mmol/L Chloride 102 (98-107) mmol/L Carbon Dioxide 24 (22-30) mmol/L Anion Gap 13 (10-20) BUN 5 L (7-17) mg/dL Creatinine 0.8 (0.7-1.2) mg/dL Est GFR ( Amer) > 60 Est GFR (Non-Af Amer) > 60 POC Glucose (mg/dL) 173 H (65-110) mg/dL Random Glucose 130 H (65-105) mg/dL Calcium 8.4 L (8.6-10.4) mg/dl Phosphorus 3.5 (2.5-4.5) mg/dL Magnesium 1.7 (1.6-2.3) mg/dL Total Bilirubin 0.5 (0.2-1.3) mg/dL AST 719 H D (14-36) U/L ALT 570 H D (9-52) U/L Alkaline Phosphatase 114 (38-126) U/L Total Protein 7.3 (6.3-8.3) g/dL Albumin 3.6 (3.5-5.0) g/dL Globulin 3.7 (2.2-3.9) gm/dL Albumin/Globulin Ratio 1.0 (1.0-2.1) 07/18/17 07/17/17 07/17/17 Range/Units 04:00 23:37 20:03 WBC 11.1 H (4.8-10.8) K/uL RBC 4.04 (3.80-5.20) Mil/uL Hgb 10.4 L (11.0-16.0) g/dL Hct 33.6 L (34.0-47.0) % MCV 83.2 (81.0-99.0) fL MCH 25.7 L (27.0-31.0) pg MCHC 30.9 L (33.0-37.0) g/dL RDW 13.9 (11.5-14.5) % Plt Count 237 (130-400) K/uL MPV 9.0 (7.2-11.7) fL Neut % (Auto) 90.7 H (50.0-75.0) % Lymph % (Auto) 6.0 L (20.0-40.0) % [place] % (Auto) 3.1 (0.0-10.0) % Eos % (Auto) 0.0 (0.0-4.0) % Baso % (Auto) 0.2 (0.0-2.0) % Neut # 10.0 H (1.8-7.0) K/uL Lymph # 0.7 L (1.0-4.3) K/uL [place] # 0.3 (0.0-0.8) K/uL Eos # 0.0 (0.0-0.7) K/uL Baso # 0.0 (0.0-0.2) K/uL Neutrophils % (Manual) 69 (50-75) % Band Neutrophils % 20 H* (0-2) % Lymphocytes % (Manual) 8 L (20-40) % Monocytes % (Manual) 3 (0-10) % Platelet Estimate Normal (NORMAL) Large Platelets Present Hypochromasia (manual) Slight [place] Cells Slight Sodium 135 (132-148) mmol/L Potassium 4.1 (3.6-5.2) mmol/L Chloride 106 (98-107) mmol/L Carbon Dioxide 19 L (22-30) mmol/L Anion Gap 14 (10-20) BUN 5 L (7-17) mg/dL Creatinine 0.7 (0.7-1.2) mg/dL Est GFR ( Amer) > 60 Est GFR (Non-Af Amer) > 60 POC Glucose (mg/dL) 186 H (65-110) mg/dL Random Glucose 143 H (65-105) mg/dL Calcium 8.6 (8.6-10.4) mg/dl Phosphorus (2.5-4.5) mg/dL Magnesium (1.6-2.3) mg/dL Total Bilirubin 0.6 (0.2-1.3) mg/dL AST 197 H D (14-36) U/L ALT 136 H D (9-52) U/L Alkaline Phosphatase 108 (38-126) U/L Total Protein 7.3 (6.3-8.3) g/dL Albumin 3.6 (3.5-5.0) g/dL Globulin 3.7 (2.2-3.9) gm/dL Albumin/Globulin Ratio 0.9 L (1.0-2.1) 07/17/17 07/17/17 Range/Units 18:00 11:30 WBC 11.9 H D (4.8-10.8) K/uL RBC 4.47 (3.80-5.20) Mil/uL Hgb 11.7 (11.0-16.0) g/dL Hct 37.7 (34.0-47.0) % MCV 84.3 (81.0-99.0) fL MCH 26.1 L (27.0-31.0) pg MCHC 31.0 L (33.0-37.0) g/dL RDW 14.5 (11.5-14.5) % Plt Count 244 (130-400) K/uL MPV 8.6 (7.2-11.7) fL Neut % (Auto) 70.3 (50.0-75.0) % Lymph % (Auto) 23.9 (20.0-40.0) % [place] % (Auto) 3.5 (0.0-10.0) % Eos % (Auto) 1.9 (0.0-4.0) % Baso % (Auto) 0.4 (0.0-2.0) % Neut # 8.4 H (1.8-7.0) K/uL Lymph # 2.9 (1.0-4.3) K/uL [place] # 0.4 (0.0-0.8) K/uL Eos # 0.2 (0.0-0.7) K/uL Baso # 0.0 (0.0-0.2) K/uL Neutrophils % (Manual) (50-75) % Band Neutrophils % (0-2) % Lymphocytes % (Manual) (20-40) % Monocytes % (Manual) (0-10) % Platelet Estimate (NORMAL) Large Platelets Hypochromasia (manual) [place] Cells Sodium (132-148) mmol/L Potassium (3.6-5.2) mmol/L Chloride (98-107) mmol/L Carbon Dioxide (22-30) mmol/L Anion Gap (10-20) BUN (7-17) mg/dL Creatinine (0.7-1.2) mg/dL Est GFR ( Amer) Est GFR (Non-Af Amer) POC Glucose (mg/dL) 123 H (65-110) mg/dL Random Glucose (65-105) mg/dL Calcium (8.6-10.4) mg/dl Phosphorus (2.5-4.5) mg/dL Magnesium (1.6-2.3) mg/dL Total Bilirubin (0.2-1.3) mg/dL AST (14-36) U/L ALT (9-52) U/L Alkaline Phosphatase (38-126) U/L Total Protein (6.3-8.3) g/dL Albumin (3.5-5.0) g/dL Globulin (2.2-3.9) gm/dL Albumin/Globulin Ratio (1.0-2.1) Laboratory Results - last 24 hr 07/17/17 07/17/17 07/17/17 11:30 18:00 20:03 WBC 11.9 H D RBC 4.47 Hgb 11.7 Hct 37.7 MCV 84.3 MCH 26.1 L MCHC 31.0 L RDW 14.5 Plt Count 244 MPV 8.6 Neut % (Auto) 70.3 Lymph % (Auto) 23.9 [place] % (Auto) 3.5 Eos % (Auto) 1.9 Baso % (Auto) 0.4 Neut # 8.4 H Lymph # 2.9 [place] # 0.4 Eos # 0.2 Baso # 0.0 Neutrophils % (Manual) Band Neutrophils % Lymphocytes % (Manual) Monocytes % (Manual) Platelet Estimate Large Platelets Hypochromasia (manual) [place] Cells Sodium 135 Potassium 4.1 Chloride 106 Carbon Dioxide 19 L Anion Gap 14 BUN 5 L Creatinine 0.7 Est GFR ( Amer) > 60 Est GFR (Non-Af Amer) > 60 POC Glucose (mg/dL) 123 H Random Glucose 143 H Calcium 8.6 Phosphorus Magnesium Total Bilirubin 0.6 AST 197 H D ALT 136 H D Alkaline Phosphatase 108 Total Protein 7.3 Albumin 3.6 Globulin 3.7 Albumin/Globulin Ratio 0.9 L 07/17/17 07/18/17 07/18/17 23:37 04:00 04:00 WBC 11.1 H RBC 4.04 Hgb 10.4 L Hct 33.6 L MCV 83.2 MCH 25.7 L MCHC 30.9 L RDW 13.9 Plt Count 237 MPV 9.0 Neut % (Auto) 90.7 H Lymph % (Auto) 6.0 L [place] % (Auto) 3.1 Eos % (Auto) 0.0 Baso % (Auto) 0.2 Neut # 10.0 H Lymph # 0.7 L [place] # 0.3 Eos # 0.0 Baso # 0.0 Neutrophils % (Manual) 69 Band Neutrophils % 20 H* Lymphocytes % (Manual) 8 L Monocytes % (Manual) 3 Platelet Estimate Normal Large Platelets Present Hypochromasia (manual) Slight [place] Cells Slight Sodium 134 Potassium 4.8 Chloride 102 Carbon Dioxide 24 Anion Gap 13 BUN 5 L Creatinine 0.8 Est GFR ( Amer) > 60 Est GFR (Non-Af Amer) > 60 POC Glucose (mg/dL) 186 H Random Glucose 130 H Calcium 8.4 L Phosphorus Magnesium Total Bilirubin 0.5 AST 719 H D ALT 570 H D Alkaline Phosphatase 114 Total Protein 7.3 Albumin 3.6 Globulin 3.7 Albumin/Globulin Ratio 1.0 07/18/17 07/18/17 04:00 05:26 WBC RBC Hgb Hct MCV MCH MCHC RDW Plt Count MPV Neut % (Auto) Lymph % (Auto) [place] % (Auto) Eos % (Auto) Baso % (Auto) Neut # Lymph # [place] # Eos # Baso # Neutrophils % (Manual) Band Neutrophils % Lymphocytes % (Manual) Monocytes % (Manual) Platelet Estimate Large Platelets Hypochromasia (manual) [place] Cells Sodium Potassium Chloride Carbon Dioxide Anion Gap BUN Creatinine Est GFR ( Amer) Est GFR (Non-Af Amer) POC Glucose (mg/dL) 173 H Random Glucose Calcium Phosphorus 3.5 Magnesium 1.7 Total Bilirubin AST ALT Alkaline Phosphatase Total Protein Albumin Globulin Albumin/Globulin Ratio Fingerstick Blood Sugar Results: 173 Review of Systems - Constitutional Constitutional: absent: Fever, Chills, Sweats - Cardiovascular Cardiovascular: absent: Chest Pain, Chest Pain at Rest, Claudication, Dyspnea, Irregular Heart Rhythm - Respiratory Respiratory: absent: Cough, Dyspnea on Exertion, Chest Congestion - Gastrointestinal Gastrointestinal: absent: Constipation, Diarrhea, Nausea, Vomiting - Musculoskeletal Musculoskeletal: absent: Numbness, Tingling - Integumentary Integumentary: absent: Rash - Hematologic/Lymphatic Hematologic: absent: Easy Bleeding, Easy Bruising Critical Care Progress Note - Nutrition Nutrition: Nutrition Category Date Time Status NPO Diet [DIET] Diets 07/17/17 Breakfast Active Assessment/Plan - Assessment and Plan (Free Text) Assessment: 61 y/o F with pmhx of Colon CA, DM II, HTN, HLD, CAD, COPD, [place], Seizures, Migraines, Anemia, TIA POD#1 s/p right hemicolectomy Neuro: intact, hx migraines Medications and management: * Topamax 50 mg po daily Cardio: hx HTN, TIA Medications and management: * Procardia XL 90mg po daily * Plavix 75 mg po daily Pulm: hx COPD Medications and management: * Advair Diskus 250/50 Heme: H/H stable post surgery Endo: hx DM II Medications and management: * R ISS GI: Acute Transaminitis, POD#1 s/p R hemicolectomy Medications and management: * AST: 719 ALT: 570, repeat on 07/18 AST:610 ALT:588 * stopped Crestor and Tylenol * Flagyl 250 mg q8h ID: Medications and management: * Ceftriaxone 1gm daily * Procalcitonin: 1.02 * Bands: 20 * f/u Urine and Blood culture Prophylaxis: * DVT: Heparin 5000 u sc q8h * GI: Protonix 40 mg IVP daily * KCl 20 meq in D5 1/2NS @125 cc/hr * Zofran 4 mg ivp q8h PRN * Morphine MANAGER INTERFACE <Arvind Early - Last Filed: 07/18/17 18:11> CCU Objective - Vital Signs / Intake & Output Vital Signs (Last 4 hours): Vital Signs Pulse Resp BP Pulse Ox 07/18/17 17:30 86 13 97 07/18/17 17:00 88 13 96 07/18/17 16:51 92 H 12 129/60 96 07/18/17 16:30 90 13 95 07/18/17 16:00 93 H 15 96 07/18/17 15:51 90 13 131/68 95 07/18/17 15:30 92 H 12 96 07/18/17 15:00 100 H 12 97 07/18/17 14:52 97 H 14 150/72 96 07/18/17 14:30 103 H 17 95 Intake and Output (Last 8hrs): Intake & Output 07/18/17 07/18/17 07/18/17 06:59 14:59 22:59 Intake Total 988 950 250 Output Total 615 375 135 Balance 373 575 115 Intake: Intake, IV Amount 988 950 250 right hand 988 950 250 Oral 0 0 0 Output: Gastric Amount 150 10 Right Nares 150 10 Urine 465 365 135 Urethral (Dickens) 465 365 135 Stool 0 Emesis 0 0 Other: # Bowel Movements 0 0 0 - Medications Active Medications: Active Medications Generic Name Dose Route Start Last Admin Trade Name Freq PRN Reason Stop Dose Admin Albuterol Sulfate 2.5 mg 07/13/17 20:00 07/18/17 14:38 Albuterol 0.083% Inhal Nasra (2.5 Mg/3 Ml) Ud IH 2.5 mg RQ6 ISIDORO Administration Clopidogrel Bisulfate 75 mg 07/12/17 15:00 07/18/17 11:56 Plavix PO Not Given DAILY ISIDORO Dextrose 0 ml 07/12/17 14:24 Dextrose 50% Inj IV STAT PRN Hyglycemia Protocol Protocol Dextrose 0 gm 07/12/17 14:24 Glutose 15 PO ONCE PRN Hypoglycemia Protocol Protocol Heparin Sodium (Porcine) 5,000 units 07/18/17 06:00 07/18/17 14:12 Heparin SC 5,000 units Q8 ISIDORO Administration Hydromorphone HCl 0.5 mg 07/17/17 18:12 07/17/17 19:49 Dilaudid IVP 0.5 mg Q5M PRN Administration Pain, moderate (4-7) Potassium Chloride/Dextrose/Sod Cl 1,000 mls @ 125 mls/hr 07/17/17 17:45 14:11 Potassium Chl 20 Meq In D5-1/2ns IV 125 mls/hr .Q8H ISIDORO Administration Ceftriaxone Sodium 1 gm/ 100 mls @ 100 mls/hr 07/18/17 10:00 07/18/17 10:30 Sodium Chloride IVPB 100 mls/hr DAILY ISIDORO Administration Metronidazole 250 mg in 50 mls @ 100 mls/hr 07/17/17 22:00 07/18/17 14:11 Flagyl IVPB 07/22/17 22:01 100 mls/hr Q8 ISIDORO Administration Insulin Human Regular 0 unit 07/18/17 00:00 07/18/17 18:05 Novolin R SC Not Given Q6H ISIDORO Protocol Loratadine 10 mg 07/13/17 10:00 07/18/17 10:12 Claritin PO Not Given DAILY ISIDORO Morphine Sulfate/Sodium Chloride 30 mg 07/17/17 18:12 07/18/17 14:03 Morphine Quality Assurance Assessor Monoject Barrel IV 30 mg Q4H PRN Administration Pain, moderate (4-7) Protocol Multivitamins 1 tab 07/13/17 10:00 07/18/17 11:56 Hexavitamin PO Not Given DAILY ISIDORO Nifedipine 90 mg 07/12/17 16:00 07/18/17 11:56 Procardia Xl PO Not Given DAILY ISIDORO Ondansetron HCl 4 mg 07/14/17 14:30 07/18/17 12:03 Zofran Inj IVP 4 mg Q8H PRN Administration Nausea/Vomiting Pantoprazole Sodium 40 mg 07/17/17 12:30 07/18/17 10:00 Protonix Inj IVP 40 mg DAILY ISIDORO Administration Fluticasone/Salmeterol 1 puff 07/12/17 22:00 07/18/17 09:02 Advair Diskus 250/50 IH 1 puff RQ12 ISIDORO Administration Topiramate 50 mg 07/14/17 10:00 07/18/17 11:56 Topamax PO Not Given DAILY ISIDORO Zinc Acetate/Diphenhydramine 1 cre 07/12/17 14:06 07/12/17 15:26 Benadryl 1% Zinc Acetate -0.1% TOP 1 applic BID PRN Administration Itching / Pruritus - Patient Studies Lab Studies: Lab Studies 07/18/17 07/18/17 07/18/17 Range/Units 17:39 11:52 11:50 WBC (4.8-10.8) K/uL RBC (3.80-5.20) Mil/uL Hgb (11.0-16.0) g/dL Hct (34.0-47.0) % MCV (81.0-99.0) fL MCH (27.0-31.0) pg MCHC (33.0-37.0) g/dL RDW (11.5-14.5) % Plt Count (130-400) K/uL MPV (7.2-11.7) fL Neut % (Auto) (50.0-75.0) % Lymph % (Auto) (20.0-40.0) % [place] % (Auto) (0.0-10.0) % Eos % (Auto) (0.0-4.0) % Baso % (Auto) (0.0-2.0) % Neut # (1.8-7.0) K/uL Lymph # (1.0-4.3) K/uL [place] # (0.0-0.8) K/uL Eos # (0.0-0.7) K/uL Baso # (0.0-0.2) K/uL Neutrophils % (Manual) (50-75) % Band Neutrophils % (0-2) % Lymphocytes % (Manual) (20-40) % Monocytes % (Manual) (0-10) % Platelet Estimate (NORMAL) Large Platelets Hypochromasia (manual) [place] Cells Sodium 133 (132-148) mmol/L Potassium 4.5 (3.6-5.2) mmol/L Chloride 101 (98-107) mmol/L Carbon Dioxide 22 (22-30) mmol/L Anion Gap 15 (10-20) BUN 5 L (7-17) mg/dL Creatinine 0.8 (0.7-1.2) mg/dL Est GFR ( Amer) > 60 Est GFR (Non-Af Amer) > 60 POC Glucose (mg/dL) 126 H 179 H (65-110) mg/dL Random Glucose 131 H (65-105) mg/dL Calcium 9.2 (8.6-10.4) mg/dl Phosphorus (2.5-4.5) mg/dL Magnesium (1.6-2.3) mg/dL Total Bilirubin 0.6 (0.2-1.3) mg/dL AST 610 H (14-36) U/L ALT 588 H (9-52) U/L Alkaline Phosphatase 144 H D (38-126) U/L Total Protein 8.7 H (6.3-8.3) g/dL Albumin 4.3 (3.5-5.0) g/dL Globulin 4.4 H (2.2-3.9) gm/dL Albumin/Globulin Ratio 1.0 (1.0-2.1) Procalcitonin (0.19-0.49) NG/ML Urine Color (YELLOW) Urine Clarity (Clear) Urine pH (5.0-8.0) Ur Specific [place] (1.003-1.030) Urine Protein (NEGATIVE) mg/dL Urine Glucose (UA) (Normal) mg/dL Urine Ketones (NEGATIVE) mg/dL Urine Blood (NEGATIVE) Urine Nitrate (NEGATIVE) Urine Bilirubin (NEGATIVE) Urine Urobilinogen (0.2-1.0) mg/dL Ur Leukocyte Esterase (Negative) Luis/uL Urine WBC (Auto) (0-5) /hpf Urine RBC (Auto) (0-3) /hpf Urine Bacteria (<OCC) 07/18/17 07/18/17 07/18/17 Range/Units 11:50 10:31 05:26 WBC (4.8-10.8) K/uL RBC (3.80-5.20) Mil/uL Hgb (11.0-16.0) g/dL Hct (34.0-47.0) % MCV (81.0-99.0) fL MCH (27.0-31.0) pg MCHC (33.0-37.0) g/dL RDW (11.5-14.5) % Plt Count (130-400) K/uL MPV (7.2-11.7) fL Neut % (Auto) (50.0-75.0) % Lymph % (Auto) (20.0-40.0) % [place] % (Auto) (0.0-10.0) % Eos % (Auto) (0.0-4.0) % Baso % (Auto) (0.0-2.0) % Neut # (1.8-7.0) K/uL Lymph # (1.0-4.3) K/uL [place] # (0.0-0.8) K/uL Eos # (0.0-0.7) K/uL Baso # (0.0-0.2) K/uL Neutrophils % (Manual) (50-75) % Band Neutrophils % (0-2) % Lymphocytes % (Manual) (20-40) % Monocytes % (Manual) (0-10) % Platelet Estimate (NORMAL) Large Platelets Hypochromasia (manual) [place] Cells Sodium (132-148) mmol/L Potassium (3.6-5.2) mmol/L Chloride (98-107) mmol/L Carbon Dioxide (22-30) mmol/L Anion Gap (10-20) BUN (7-17) mg/dL Creatinine (0.7-1.2) mg/dL Est GFR ( Amer) Est GFR (Non-Af Amer) POC Glucose (mg/dL) 173 H (65-110) mg/dL Random Glucose (65-105) mg/dL Calcium (8.6-10.4) mg/dl Phosphorus (2.5-4.5) mg/dL Magnesium (1.6-2.3) mg/dL Total Bilirubin (0.2-1.3) mg/dL AST (14-36) U/L ALT (9-52) U/L Alkaline Phosphatase (38-126) U/L Total Protein (6.3-8.3) g/dL Albumin (3.5-5.0) g/dL Globulin (2.2-3.9) gm/dL Albumin/Globulin Ratio (1.0-2.1) Procalcitonin 1.02 H (0.19-0.49) NG/ML Urine Color Yellow (YELLOW) Urine Clarity Clear (Clear) Urine pH 5.0 (5.0-8.0) Ur Specific [place] 1.017 (1.003-1.030) Urine Protein Negative (NEGATIVE) mg/dL Urine Glucose (UA) Normal (Normal) mg/dL Urine Ketones Negative (NEGATIVE) mg/dL Urine Blood Negative (NEGATIVE) Urine Nitrate Negative (NEGATIVE) Urine Bilirubin Negative (NEGATIVE) Urine Urobilinogen 2.0 H (0.2-1.0) mg/dL Ur Leukocyte Esterase Neg (Negative) Luis/uL Urine WBC (Auto) 2 (0-5) /hpf Urine RBC (Auto) < 1 (0-3) /hpf Urine Bacteria Rare (<OCC) 07/18/17 07/18/17 07/18/17 Range/Units 04:00 04:00 04:00 WBC 11.1 H (4.8-10.8) K/uL RBC 4.04 (3.80-5.20) Mil/uL Hgb 10.4 L (11.0-16.0) g/dL Hct 33.6 L (34.0-47.0) % MCV 83.2 (81.0-99.0) fL MCH 25.7 L (27.0-31.0) pg MCHC 30.9 L (33.0-37.0) g/dL RDW 13.9 (11.5-14.5) % Plt Count 237 (130-400) K/uL MPV 9.0 (7.2-11.7) fL Neut % (Auto) 90.7 H (50.0-75.0) % Lymph % (Auto) 6.0 L (20.0-40.0) % [place] % (Auto) 3.1 (0.0-10.0) % Eos % (Auto) 0.0 (0.0-4.0) % Baso % (Auto) 0.2 (0.0-2.0) % Neut # 10.0 H (1.8-7.0) K/uL Lymph # 0.7 L (1.0-4.3) K/uL [place] # 0.3 (0.0-0.8) K/uL Eos # 0.0 (0.0-0.7) K/uL Baso # 0.0 (0.0-0.2) K/uL Neutrophils % (Manual) 69 (50-75) % Band Neutrophils % 20 H* (0-2) % Lymphocytes % (Manual) 8 L (20-40) % Monocytes % (Manual) 3 (0-10) % Platelet Estimate Normal (NORMAL) Large Platelets Present Hypochromasia (manual) Slight [place] Cells Slight Sodium 134 (132-148) mmol/L Potassium 4.8 (3.6-5.2) mmol/L Chloride 102 (98-107) mmol/L Carbon Dioxide 24 (22-30) mmol/L Anion Gap 13 (10-20) BUN 5 L (7-17) mg/dL Creatinine 0.8 (0.7-1.2) mg/dL Est GFR ( Amer) > 60 Est GFR (Non-Af Amer) > 60 POC Glucose (mg/dL) (65-110) mg/dL Random Glucose 130 H (65-105) mg/dL Calcium 8.4 L (8.6-10.4) mg/dl Phosphorus 3.5 (2.5-4.5) mg/dL Magnesium 1.7 (1.6-2.3) mg/dL Total Bilirubin 0.5 (0.2-1.3) mg/dL AST 719 H D (14-36) U/L ALT 570 H D (9-52) U/L Alkaline Phosphatase 114 (38-126) U/L Total Protein 7.3 (6.3-8.3) g/dL Albumin 3.6 (3.5-5.0) g/dL Globulin 3.7 (2.2-3.9) gm/dL Albumin/Globulin Ratio 1.0 (1.0-2.1) Procalcitonin (0.19-0.49) NG/ML Urine Color (YELLOW) Urine Clarity (Clear) Urine pH (5.0-8.0) Ur Specific [place] (1.003-1.030) Urine Protein (NEGATIVE) mg/dL Urine Glucose (UA) (Normal) mg/dL Urine Ketones (NEGATIVE) mg/dL Urine Blood (NEGATIVE) Urine Nitrate (NEGATIVE) Urine Bilirubin (NEGATIVE) Urine Urobilinogen (0.2-1.0) mg/dL Ur Leukocyte Esterase (Negative) Luis/uL Urine WBC (Auto) (0-5) /hpf Urine RBC (Auto) (0-3) /hpf Urine Bacteria (<OCC) 07/17/17 07/17/17 07/17/17 Range/Units 23:37 20:03 18:00 WBC 11.9 H D (4.8-10.8) K/uL RBC 4.47 (3.80-5.20) Mil/uL Hgb 11.7 (11.0-16.0) g/dL Hct 37.7 (34.0-47.0) % MCV 84.3 (81.0-99.0) fL MCH 26.1 L (27.0-31.0) pg MCHC 31.0 L (33.0-37.0) g/dL RDW 14.5 (11.5-14.5) % Plt Count 244 (130-400) K/uL MPV 8.6 (7.2-11.7) fL Neut % (Auto) 70.3 (50.0-75.0) % Lymph % (Auto) 23.9 (20.0-40.0) % [place] % (Auto) 3.5 (0.0-10.0) % Eos % (Auto) 1.9 (0.0-4.0) % Baso % (Auto) 0.4 (0.0-2.0) % Neut # 8.4 H (1.8-7.0) K/uL Lymph # 2.9 (1.0-4.3) K/uL [place] # 0.4 (0.0-0.8) K/uL Eos # 0.2 (0.0-0.7) K/uL Baso # 0.0 (0.0-0.2) K/uL Neutrophils % (Manual) (50-75) % Band Neutrophils % (0-2) % Lymphocytes % (Manual) (20-40) % Monocytes % (Manual) (0-10) % Platelet Estimate (NORMAL) Large Platelets Hypochromasia (manual) [place] Cells Sodium 135 (132-148) mmol/L Potassium 4.1 (3.6-5.2) mmol/L Chloride 106 (98-107) mmol/L Carbon Dioxide 19 L (22-30) mmol/L Anion Gap 14 (10-20) BUN 5 L (7-17) mg/dL Creatinine 0.7 (0.7-1.2) mg/dL Est GFR ( Amer) > 60 Est GFR (Non-Af Amer) > 60 POC Glucose (mg/dL) 186 H (65-110) mg/dL Random Glucose 143 H (65-105) mg/dL Calcium 8.6 (8.6-10.4) mg/dl Phosphorus (2.5-4.5) mg/dL Magnesium (1.6-2.3) mg/dL Total Bilirubin 0.6 (0.2-1.3) mg/dL AST 197 H D (14-36) U/L ALT 136 H D (9-52) U/L Alkaline Phosphatase 108 (38-126) U/L Total Protein 7.3 (6.3-8.3) g/dL Albumin 3.6 (3.5-5.0) g/dL Globulin 3.7 (2.2-3.9) gm/dL Albumin/Globulin Ratio 0.9 L (1.0-2.1) Procalcitonin (0.19-0.49) NG/ML Urine Color (YELLOW) Urine Clarity (Clear) Urine pH (5.0-8.0) Ur Specific [place] (1.003-1.030) Urine Protein (NEGATIVE) mg/dL Urine Glucose (UA) (Normal) mg/dL Urine Ketones (NEGATIVE) mg/dL Urine Blood (NEGATIVE) Urine Nitrate (NEGATIVE) Urine Bilirubin (NEGATIVE) Urine Urobilinogen (0.2-1.0) mg/dL Ur Leukocyte Esterase (Negative) Luis/uL Urine WBC (Auto) (0-5) /hpf Urine RBC (Auto) (0-3) /hpf Urine Bacteria (<OCC) Laboratory Results - last 24 hr 07/17/17 07/17/17 07/17/17 18:00 20:03 23:37 WBC 11.9 H D RBC 4.47 Hgb 11.7 Hct 37.7 MCV 84.3 MCH 26.1 L MCHC 31.0 L RDW 14.5 Plt Count 244 MPV 8.6 Neut % (Auto) 70.3 Lymph % (Auto) 23.9 [place] % (Auto) 3.5 Eos % (Auto) 1.9 Baso % (Auto) 0.4 Neut # 8.4 H Lymph # 2.9 [place] # 0.4 Eos # 0.2 Baso # 0.0 Neutrophils % (Manual) Band Neutrophils % Lymphocytes % (Manual) Monocytes % (Manual) Platelet Estimate Large Platelets Hypochromasia (manual) [place] Cells Sodium 135 Potassium 4.1 Chloride 106 Carbon Dioxide 19 L Anion Gap 14 BUN 5 L Creatinine 0.7 Est GFR ( Amer) > 60 Est GFR (Non-Af Amer) > 60 POC Glucose (mg/dL) 186 H Random Glucose 143 H Calcium 8.6 Phosphorus Magnesium Total Bilirubin 0.6 AST 197 H D ALT 136 H D Alkaline Phosphatase 108 Total Protein 7.3 Albumin 3.6 Globulin 3.7 Albumin/Globulin Ratio 0.9 L Procalcitonin Urine Color Urine Clarity Urine pH Ur Specific [place] Urine Protein Urine Glucose (UA) Urine Ketones Urine Blood Urine Nitrate Urine Bilirubin Urine Urobilinogen Ur Leukocyte Esterase Urine WBC (Auto) Urine RBC (Auto) Urine Bacteria 07/18/17 07/18/17 07/18/17 04:00 04:00 04:00 WBC 11.1 H RBC 4.04 Hgb 10.4 L Hct 33.6 L MCV 83.2 MCH 25.7 L MCHC 30.9 L RDW 13.9 Plt Count 237 MPV 9.0 Neut % (Auto) 90.7 H Lymph % (Auto) 6.0 L [place] % (Auto) 3.1 Eos % (Auto) 0.0 Baso % (Auto) 0.2 Neut # 10.0 H Lymph # 0.7 L [place] # 0.3 Eos # 0.0 Baso # 0.0 Neutrophils % (Manual) 69 Band Neutrophils % 20 H* Lymphocytes % (Manual) 8 L Monocytes % (Manual) 3 Platelet Estimate Normal Large Platelets Present Hypochromasia (manual) Slight [place] Cells Slight Sodium 134 Potassium 4.8 Chloride 102 Carbon Dioxide 24 Anion Gap 13 BUN 5 L Creatinine 0.8 Est GFR ( Amer) > 60 Est GFR (Non-Af Amer) > 60 POC Glucose (mg/dL) Random Glucose 130 H Calcium 8.4 L Phosphorus 3.5 Magnesium 1.7 Total Bilirubin 0.5 AST 719 H D ALT 570 H D Alkaline Phosphatase 114 Total Protein 7.3 Albumin 3.6 Globulin 3.7 Albumin/Globulin Ratio 1.0 Procalcitonin Urine Color Urine Clarity Urine pH Ur Specific [place] Urine Protein Urine Glucose (UA) Urine Ketones Urine Blood Urine Nitrate Urine Bilirubin Urine Urobilinogen Ur Leukocyte Esterase Urine WBC (Auto) Urine RBC (Auto) Urine Bacteria 07/18/17 07/18/17 07/18/17 05:26 10:31 11:50 WBC RBC Hgb Hct MCV MCH MCHC RDW Plt Count MPV Neut % (Auto) Lymph % (Auto) [place] % (Auto) Eos % (Auto) Baso % (Auto) Neut # Lymph # [place] # Eos # Baso # Neutrophils % (Manual) Band Neutrophils % Lymphocytes % (Manual) Monocytes % (Manual) Platelet Estimate Large Platelets Hypochromasia (manual) [place] Cells Sodium Potassium Chloride Carbon Dioxide Anion Gap BUN Creatinine Est GFR ( Amer) Est GFR (Non-Af Amer) POC Glucose (mg/dL) 173 H Random Glucose Calcium Phosphorus Magnesium Total Bilirubin AST ALT Alkaline Phosphatase Total Protein Albumin Globulin Albumin/Globulin Ratio Procalcitonin 1.02 H Urine Color Yellow Urine Clarity Clear Urine pH 5.0 Ur Specific [place] 1.017 Urine Protein Negative Urine Glucose (UA) Normal Urine Ketones Negative Urine Blood Negative Urine Nitrate Negative Urine Bilirubin Negative Urine Urobilinogen 2.0 H Ur Leukocyte Esterase Neg Urine WBC (Auto) 2 Urine RBC (Auto) < 1 Urine Bacteria Rare 07/18/17 07/18/17 07/18/17 11:50 11:52 17:39 WBC RBC Hgb Hct MCV MCH MCHC RDW Plt Count MPV Neut % (Auto) Lymph % (Auto) [place] % (Auto) Eos % (Auto) Baso % (Auto) Neut # Lymph # [place] # Eos # Baso # Neutrophils % (Manual) Band Neutrophils % Lymphocytes % (Manual) Monocytes % (Manual) Platelet Estimate Large Platelets Hypochromasia (manual) [place] Cells Sodium 133 Potassium 4.5 Chloride 101 Carbon Dioxide 22 Anion Gap 15 BUN 5 L Creatinine 0.8 Est GFR ( Amer) > 60 Est GFR (Non-Af Amer) > 60 POC Glucose (mg/dL) 179 H 126 H Random Glucose 131 H Calcium 9.2 Phosphorus Magnesium Total Bilirubin 0.6 AST 610 H ALT 588 H Alkaline Phosphatase 144 H D Total Protein 8.7 H Albumin 4.3 Globulin 4.4 H Albumin/Globulin Ratio 1.0 Procalcitonin Urine Color Urine Clarity Urine pH Ur Specific [place] Urine Protein Urine Glucose (UA) Urine Ketones Urine Blood Urine Nitrate Urine Bilirubin Urine Urobilinogen Ur Leukocyte Esterase Urine WBC (Auto) Urine RBC (Auto) Urine Bacteria Critical Care Progress Note - Nutrition Nutrition: Nutrition Category Date Time Status NPO Diet [DIET] Diets 07/17/17 Breakfast Active Attending/Attestation - Attestation I have personally seen and examined this patient.: Yes I have fully participated in the care of the patient.: Yes I have reviewed all pertinent clinical information: Yes Notes (Text): 07/18/17 18:10 Patient seen and examined. Status post right hemicolectomy Follow-up LFTs Continue antibiotics Follow-up culture and sensitivity Intake and output
[2017-07-18 11:00] LABS: RBC URINE < 1 /hpf (0-3); URINE BACTERIA RARE (<OCC); URINE BILIRUBIN NEGATIVE (NEGATIVE); URINE BLOOD NEGATIVE (NEGATIVE); URINE COLOR Yellow (YELLOW); URINE GLUCOSE (UA) NORMAL (Normal); URINE KETONE NEGATIVE (NEGATIVE); URINE LEUKOCYTE ESTERASE NEG Leu/uL (Negative); URINE PROTEIN NEGATIVE (NEGATIVE); WBC URINE 2 /hpf (0-5)
[2017-07-18] MEDS: Multiple Vitamins Tab PO SCH (11:56)
[2017-07-18] MEDS: NIFEdipine 90 mg ER Tab PO SCH (11:56)
[2017-07-18 12:10] LABS: CHLORIDE 101 mmol/L (98-107); SODIUM 133 mmol/L (132-148)
[2017-07-18 12:11] LABS: POTASSIUM 4.5 mmol/L (3.6-5.2)
[2017-07-18 12:13] LABS: ALKALINE PHOSPHATASE 144 U/L (38-126); ALT/SGPT 588 U/L (9-52); AST/SGOT 610 U/L (14-36); BILIRUBIN,TOTAL 0.6 mg/dL (0.2-1.3); BLOOD UREA NITROGEN 5 mg/dL (7-17); CARBON DIOXIDE 22 mmol/L (22-30); GFR AFRICAN-AMERICAN > 60; GLUCOSE,RANDOM 131 mg/dL (65-105); TOTAL PROTEIN 8.7 g/dL (6.3-8.3)
[2017-07-18 12:14] LABS: CALCIUM 9.2 mg/dl (8.6-10.4)
[2017-07-18] MEDS: Morphine Monoject Barrel PCA 1mg/ml IV PRN (14:03)
[2017-07-19] MEDS: (Novolin R) Insulin Human Regular 100 units/ml vial SC SCH ×4 (00:05→17:40)
[2017-07-19] MEDS: Albuterol 0.083% Inhal Sol (2.5 mg/3 mL) UD IH SCH ×4 (01:11→20:08)
[2017-07-19] MEDS: Potassium Ch 20mEq in D5-1/2NS 1,000 ML IV SCH ×3 (01:45→18:45)
[2017-07-19] MEDS: metroNIDAZOLE IV 250mg/50 ml 250 MG/50 ML BAG IVPB SCH ×3 (06:30→21:05)
[2017-07-19 06:31] LABS: BASO % 0.4 % (0.0-2.0); EOS # 0.1 K/uL (0.0-0.7); EOS % 1.1 % (0.0-4.0); HEMATOCRIT 29.8 % (34.0-47.0); LYMPH # 0.9 K/uL (1.0-4.3); LYMPH % 11.5 % (20.0-40.0); MEAN CELL VOLUME 82.9 fL (81.0-99.0); MEAN CORPUSCULAR HEMOGLOBIN 26.8 pg (27.0-31.0); MEAN CORPUSCULAR HGB CONC 32.3 g/dL (33.0-37.0); MEAN PLATELET VOLUME 9.6 fL (7.2-11.7); MONO # 0.4 K/uL (0.0-0.8); MONO % 5.2 % (0.0-10.0); WHITE BLOOD COUNT 7.8 K/uL (4.8-10.8)
[2017-07-19 06:53] LABS: CHLORIDE 105 mmol/L (98-107); SODIUM 138 mmol/L (132-148)
[2017-07-19 06:55] LABS: GFR AFRICAN-AMERICAN > 60; MAGNESIUM 1.9 mg/dL (1.6-2.3); PHOSPHOROUS 2.7 mg/dL (2.5-4.5)
[2017-07-19 06:56] LABS: ALB/GLOB RATIO 0.9 (1.0-2.1); ALKALINE PHOSPHATASE 102 U/L (38-126); ALT/SGPT 339 U/L (9-52); AST/SGOT 202 U/L (14-36); BILIRUBIN,TOTAL 0.4 mg/dL (0.2-1.3); BLOOD UREA NITROGEN 4 mg/dL (7-17); CALCIUM 8.5 mg/dl (8.6-10.4); CARBON DIOXIDE 25 mmol/L (22-30); GLUCOSE,RANDOM 114 mg/dL (65-105); TOTAL PROTEIN 6.9 g/dL (6.3-8.3)
[2017-07-19] MEDS: Fluticasone-Salmeterol 250-50mcg Diskus IH SCH ×2 (07:50→20:08)
--- NOTE | 2017-07-19 09:55 | CP.CCUPN ---
<CarolineDiana Shruthi - Last Filed: 07/19/17 09:59> CCU Subjective - Physician Review Subjective (Free Text): Patient seen and examined at bedside and in no acute distress. Patient says her abdominal pain is 7/10 today, but says it feels better than yesterday. Patient is sitting comfortably in the chair. Patient denies shortness of breath, chest pain, abdominal pain, nausea, vomiting. Patient has had no bowel movement or flatus. 07/19/17 09:59 CCU Objective - Vital Signs / Intake & Output Vital Signs (Last 4 hours): Vital Signs Pulse Resp BP Pulse Ox 07/19/17 08:30 85 11 L 96 07/19/17 08:00 93 H 18 96 07/19/17 07:51 87 15 128/66 96 07/19/17 07:30 78 12 97 07/19/17 07:00 82 10 L 97 07/19/17 06:52 87 13 120/66 96 07/19/17 06:30 87 12 96 07/19/17 06:00 90 12 97 Intake and Output (Last 8hrs): Intake & Output 07/18/17 07/19/17 07/19/17 22:59 06:59 14:59 Intake Total 925 925 250 Output Total 860 1345 325 Balance 65 -420 -75 Intake: Intake, IV Amount 925 925 250 right hand 925 925 250 Oral 0 0 0 Output: Gastric Amount 50 50 Right Nares 50 50 Urine 810 1295 325 Urethral (Dickens) 810 1295 325 Emesis 0 0 0 Other: # Bowel Movements 0 0 0 - Physical Exam Head: Positive for: Atraumatic, Normocephalic Extroacular Muscles: Positive for: EOMI Conjunctiva: Positive for: Normal Mouth: Positive for: Moist Mucous Membranes Respiratory/Chest: Positive for: Clear to Auscultation, Good Air Exchange. Negative for: Respiratory Distress, Accessory Muscle Use Cardiovascular: Positive for: Regular Rate and Rhythm, Normal S1, S2 Abdomen: Positive for: Tenderness (appropriate s/p hemicolectomy ) Upper Extremity: Positive for: Normal Inspection Lower Extremity: Positive for: Normal Inspection Skin: Positive for: Warm, Other (midline incision covered in clear, dry, intact dressing). Negative for: Rashes Psychiatric: Positive for: Alert, Oriented x 3 - Medications Active Medications: Active Medications Generic Name Dose Route Start Last Admin Trade Name Freq PRN Reason Stop Dose Admin Albuterol Sulfate 2.5 mg 07/13/17 20:00 07/19/17 07:51 Albuterol 0.083% Inhal Nasra (2.5 Mg/3 Ml) Ud IH 2.5 mg RQ6 ISIDORO Administration Clopidogrel Bisulfate 75 mg 07/12/17 15:00 07/18/17 11:56 Plavix PO Not Given DAILY ISIDORO Dextrose 0 ml 07/12/17 14:24 Dextrose 50% Inj IV STAT PRN Hyglycemia Protocol Protocol Dextrose 0 gm 07/12/17 14:24 Glutose 15 PO ONCE PRN Hypoglycemia Protocol Protocol Heparin Sodium (Porcine) 5,000 units 07/18/17 06:00 07/19/17 06:30 Heparin SC 5,000 units Q8 ISIDORO Administration Hydromorphone HCl 0.5 mg 07/17/17 18:12 07/17/17 19:49 Dilaudid IVP 0.5 mg Q5M PRN Administration Pain, moderate (4-7) Potassium Chloride/Dextrose/Sod Cl 1,000 mls @ 125 mls/hr 07/17/17 17:45 01:45 Potassium Chl 20 Meq In D5-1/2ns IV Not Given .Q8H ISIDORO Ceftriaxone Sodium 1 gm/ 100 mls @ 100 mls/hr 07/18/17 10:00 07/18/17 10:30 Sodium Chloride IVPB 100 mls/hr DAILY ISIDORO Administration Metronidazole 250 mg in 50 mls @ 100 mls/hr 07/17/17 22:00 07/19/17 06:30 Flagyl IVPB 07/22/17 22:01 100 mls/hr Q8 ISIDORO Administration Insulin Human Regular 0 unit 07/18/17 00:00 07/19/17 06:31 Novolin R SC Not Given Q6H ISIDORO Protocol Loratadine 10 mg 07/13/17 10:00 07/18/17 10:12 Claritin PO Not Given DAILY ISIDORO Morphine Sulfate/Sodium Chloride 30 mg 07/17/17 18:12 07/18/17 14:03 Morphine Audio Visual Manager Monoject Barrel IV 30 mg Q4H PRN Administration Pain, moderate (4-7) Protocol Multivitamins 1 tab 07/13/17 10:00 07/18/17 11:56 Hexavitamin PO Not Given DAILY [facility] Nifedipine 90 mg 07/12/17 16:00 07/18/17 11:56 Procardia Xl PO Not Given DAILY ISID[facility]O Ondansetron HCl 4 mg 07/14/17 14:30 07/18/17 12:03 Zofran Inj IVP 4 mg Q8H PRN Administration Nausea/Vomiting Pantoprazole Sodium 40 mg 07/17/17 12:30 07/18/17 10:00 Protonix Inj IVP 40 mg DAILY ISIDORO Administration Fluticasone/Salmeterol 1 puff 07/12/17 22:00 07/19/17 07:50 Advair Diskus 250/50 IH 1 puff RQ12 ISIDORO Administration Topiramate 50 mg 07/14/17 10:00 07/18/17 11:56 Topamax PO Not Given DAILY [facility]ID[facility]O Zinc Acetate/Diphenhydramine 1 cre 07/12/17 14:06 07/12/17 15:26 Benadryl 1% Zinc Acetate -0.1% TOP 1 applic BID PRN Administration Itching / Pruritus - Patient Studies Lab Studies: Microbiology Studies 07/17/17 22:45 MRSA Culture (Admit) - Final Nose MRSA NOT DETECTED Lab Studies 07/19/17 07/19/17 07/19/17 Range/Units 07:45 06:27 06:17 WBC (4.8-10.8) K/uL RBC (3.80-5.20) Mil/uL Hgb (11.0-16.0) g/dL Hct (34.0-47.0) % MCV (81.0-99.0) fL MCH (27.0-31.0) pg MCHC (33.0-37.0) g/dL RDW (11.5-14.5) % Plt Count (130-400) K/uL MPV (7.2-11.7) fL Neut % (Auto) (50.0-75.0) % Lymph % (Auto) (20.0-40.0) % [place] % (Auto) (0.0-10.0) % Eos % (Auto) (0.0-4.0) % Baso % (Auto) (0.0-2.0) % Neut # (1.8-7.0) K/uL Lymph # (1.0-4.3) K/uL [place] # (0.0-0.8) K/uL Eos # (0.0-0.7) K/uL Baso # (0.0-0.2) K/uL Sodium (132-148) mmol/L Potassium (3.6-5.2) mmol/L Chloride (98-107) mmol/L Carbon Dioxide (22-30) mmol/L Anion Gap (10-20) BUN (7-17) mg/dL Creatinine (0.7-1.2) mg/dL Est GFR ( Amer) Est GFR (Non-Af Amer) POC Glucose (mg/dL) 138 H 128 H (65-110) mg/dL Random Glucose (65-105) mg/dL Calcium (8.6-10.4) mg/dl Phosphorus 2.7 (2.5-4.5) mg/dL Magnesium 1.9 (1.6-2.3) mg/dL Total Bilirubin (0.2-1.3) mg/dL AST (14-36) U/L ALT (9-52) U/L Alkaline Phosphatase (38-126) U/L Total Protein (6.3-8.3) g/dL Albumin (3.5-5.0) g/dL Globulin (2.2-3.9) gm/dL Albumin/Globulin Ratio (1.0-2.1) Procalcitonin (0.19-0.49) NG/ML Urine Color (YELLOW) Urine Clarity (Clear) Urine pH (5.0-8.0) Ur Specific [place] (1.003-1.030) Urine Protein (NEGATIVE) mg/dL Urine Glucose (UA) (Normal) mg/dL Urine Ketones (NEGATIVE) mg/dL Urine Blood (NEGATIVE) Urine Nitrate (NEGATIVE) Urine Bilirubin (NEGATIVE) Urine Urobilinogen (0.2-1.0) mg/dL Ur Leukocyte Esterase (Negative) Luis/uL Urine WBC (Auto) (0-5) /hpf Urine RBC (Auto) (0-3) /hpf Urine Bacteria (<OCC) 07/19/17 07/19/17 07/18/17 Range/Units 06:17 06:17 23:30 WBC 7.8 (4.8-10.8) K/uL RBC 3.59 L (3.80-5.20) Mil/uL Hgb 9.6 L (11.0-16.0) g/dL Hct 29.8 L (34.0-47.0) % MCV 82.9 (81.0-99.0) fL MCH 26.8 L (27.0-31.0) pg MCHC 32.3 L (33.0-37.0) g/dL RDW 14.0 (11.5-14.5) % Plt Count 200 (130-400) K/uL MPV 9.6 (7.2-11.7) fL Neut % (Auto) 81.8 H (50.0-75.0) % Lymph % (Auto) 11.5 L (20.0-40.0) % [place] % (Auto) 5.2 (0.0-10.0) % Eos % (Auto) 1.1 (0.0-4.0) % Baso % (Auto) 0.4 (0.0-2.0) % Neut # 6.4 (1.8-7.0) K/uL Lymph # 0.9 L (1.0-4.3) K/uL [place] # 0.4 (0.0-0.8) K/uL Eos # 0.1 (0.0-0.7) K/uL Baso # 0.0 (0.0-0.2) K/uL Sodium 138 (132-148) mmol/L Potassium 4.0 (3.6-5.2) mmol/L Chloride 105 (98-107) mmol/L Carbon Dioxide 25 (22-30) mmol/L Anion Gap 12 (10-20) BUN 4 L (7-17) mg/dL Creatinine 0.9 (0.7-1.2) mg/dL Est GFR ( Amer) > 60 Est GFR (Non-Af Amer) > 60 POC Glucose (mg/dL) 134 H (65-110) mg/dL Random Glucose 114 H (65-105) mg/dL Calcium 8.5 L (8.6-10.4) mg/dl Phosphorus (2.5-4.5) mg/dL Magnesium (1.6-2.3) mg/dL Total Bilirubin 0.4 (0.2-1.3) mg/dL AST 202 H D (14-36) U/L ALT 339 H D (9-52) U/L Alkaline Phosphatase 102 (38-126) U/L Total Protein 6.9 (6.3-8.3) g/dL Albumin 3.3 L D (3.5-5.0) g/dL Globulin 3.7 (2.2-3.9) gm/dL Albumin/Globulin Ratio 0.9 L (1.0-2.1) Procalcitonin (0.19-0.49) NG/ML Urine Color (YELLOW) Urine Clarity (Clear) Urine pH (5.0-8.0) Ur Specific [place] (1.003-1.030) Urine Protein (NEGATIVE) mg/dL Urine Glucose (UA) (Normal) mg/dL Urine Ketones (NEGATIVE) mg/dL Urine Blood (NEGATIVE) Urine Nitrate (NEGATIVE) Urine Bilirubin (NEGATIVE) Urine Urobilinogen (0.2-1.0) mg/dL Ur Leukocyte Esterase (Negative) Luis/uL Urine WBC (Auto) (0-5) /hpf Urine RBC (Auto) (0-3) /hpf Urine Bacteria (<OCC) 07/18/17 07/18/17 07/18/17 Range/Units 17:39 11:52 11:50 WBC (4.8-10.8) K/uL RBC (3.80-5.20) Mil/uL Hgb (11.0-16.0) g/dL Hct (34.0-47.0) % MCV (81.0-99.0) fL MCH (27.0-31.0) pg MCHC (33.0-37.0) g/dL RDW (11.5-14.5) % Plt Count (130-400) K/uL MPV (7.2-11.7) fL Neut % (Auto) (50.0-75.0) % Lymph % (Auto) (20.0-40.0) % [place] % (Auto) (0.0-10.0) % Eos % (Auto) (0.0-4.0) % Baso % (Auto) (0.0-2.0) % Neut # (1.8-7.0) K/uL Lymph # (1.0-4.3) K/uL [place] # (0.0-0.8) K/uL Eos # (0.0-0.7) K/uL Baso # (0.0-0.2) K/uL Sodium 133 (132-148) mmol/L Potassium 4.5 (3.6-5.2) mmol/L Chloride 101 (98-107) mmol/L Carbon Dioxide 22 (22-30) mmol/L Anion Gap 15 (10-20) BUN 5 L (7-17) mg/dL Creatinine 0.8 (0.7-1.2) mg/dL Est GFR ( Amer) > 60 Est GFR (Non-Af Amer) > 60 POC Glucose (mg/dL) 126 H 179 H (65-110) mg/dL Random Glucose 131 H (65-105) mg/dL Calcium 9.2 (8.6-10.4) mg/dl Phosphorus (2.5-4.5) mg/dL Magnesium (1.6-2.3) mg/dL Total Bilirubin 0.6 (0.2-1.3) mg/dL AST 610 H (14-36) U/L ALT 588 H (9-52) U/L Alkaline Phosphatase 144 H D (38-126) U/L Total Protein 8.7 H (6.3-8.3) g/dL Albumin 4.3 (3.5-5.0) g/dL Globulin 4.4 H (2.2-3.9) gm/dL Albumin/Globulin Ratio 1.0 (1.0-2.1) Procalcitonin (0.19-0.49) NG/ML Urine Color (YELLOW) Urine Clarity (Clear) Urine pH (5.0-8.0) Ur Specific [place] (1.003-1.030) Urine Protein (NEGATIVE) mg/dL Urine Glucose (UA) (Normal) mg/dL Urine Ketones (NEGATIVE) mg/dL Urine Blood (NEGATIVE) Urine Nitrate (NEGATIVE) Urine Bilirubin (NEGATIVE) Urine Urobilinogen (0.2-1.0) mg/dL Ur Leukocyte Esterase (Negative) Luis/uL Urine WBC (Auto) (0-5) /hpf Urine RBC (Auto) (0-3) /hpf Urine Bacteria (<OCC) 07/18/17 07/18/17 Range/Units 11:50 10:31 WBC (4.8-10.8) K/uL RBC (3.80-5.20) Mil/uL Hgb (11.0-16.0) g/dL Hct (34.0-47.0) % MCV (81.0-99.0) fL MCH (27.0-31.0) pg MCHC (33.0-37.0) g/dL RDW (11.5-14.5) % Plt Count (130-400) K/uL MPV (7.2-11.7) fL Neut % (Auto) (50.0-75.0) % Lymph % (Auto) (20.0-40.0) % [place] % (Auto) (0.0-10.0) % Eos % (Auto) (0.0-4.0) % Baso % (Auto) (0.0-2.0) % Neut # (1.8-7.0) K/uL Lymph # (1.0-4.3) K/uL [place] # (0.0-0.8) K/uL Eos # (0.0-0.7) K/uL Baso # (0.0-0.2) K/uL Sodium (132-148) mmol/L Potassium (3.6-5.2) mmol/L Chloride (98-107) mmol/L Carbon Dioxide (22-30) mmol/L Anion Gap (10-20) BUN (7-17) mg/dL Creatinine (0.7-1.2) mg/dL Est GFR ( Amer) Est GFR (Non-Af Amer) POC Glucose (mg/dL) (65-110) mg/dL Random Glucose (65-105) mg/dL Calcium (8.6-10.4) mg/dl Phosphorus (2.5-4.5) mg/dL Magnesium (1.6-2.3) mg/dL Total Bilirubin (0.2-1.3) mg/dL AST (14-36) U/L ALT (9-52) U/L Alkaline Phosphatase (38-126) U/L Total Protein (6.3-8.3) g/dL Albumin (3.5-5.0) g/dL Globulin (2.2-3.9) gm/dL Albumin/Globulin Ratio (1.0-2.1) Procalcitonin 1.02 H (0.19-0.49) NG/ML Urine Color Yellow (YELLOW) Urine Clarity Clear (Clear) Urine pH 5.0 (5.0-8.0) Ur Specific [place] 1.017 (1.003-1.030) Urine Protein Negative (NEGATIVE) mg/dL Urine Glucose (UA) Normal (Normal) mg/dL Urine Ketones Negative (NEGATIVE) mg/dL Urine Blood Negative (NEGATIVE) Urine Nitrate Negative (NEGATIVE) Urine Bilirubin Negative (NEGATIVE) Urine Urobilinogen 2.0 H (0.2-1.0) mg/dL Ur Leukocyte Esterase Neg (Negative) Luis/uL Urine WBC (Auto) 2 (0-5) /hpf Urine RBC (Auto) < 1 (0-3) /hpf Urine Bacteria Rare (<OCC) Laboratory Results - last 24 hr 07/18/17 07/18/17 07/18/17 10:31 11:50 11:50 WBC RBC Hgb Hct MCV MCH MCHC RDW Plt Count MPV Neut % (Auto) Lymph % (Auto) [place] % (Auto) Eos % (Auto) Baso % (Auto) Neut # Lymph # [place] # Eos # Baso # Sodium 133 Potassium 4.5 Chloride 101 Carbon Dioxide 22 Anion Gap 15 BUN 5 L Creatinine 0.8 Est GFR ( Amer) > 60 Est GFR (Non-Af Amer) > 60 POC Glucose (mg/dL) Random Glucose 131 H Calcium 9.2 Phosphorus Magnesium Total Bilirubin 0.6 AST 610 H ALT 588 H Alkaline Phosphatase 144 H D Total Protein 8.7 H Albumin 4.3 Globulin 4.4 H Albumin/Globulin Ratio 1.0 Procalcitonin 1.02 H Urine Color Yellow Urine Clarity Clear Urine pH 5.0 Ur Specific [place] 1.017 Urine Protein Negative Urine Glucose (UA) Normal Urine Ketones Negative Urine Blood Negative Urine Nitrate Negative Urine Bilirubin Negative Urine Urobilinogen 2.0 H Ur Leukocyte Esterase Neg Urine WBC (Auto) 2 Urine RBC (Auto) < 1 Urine Bacteria Rare 07/18/17 07/18/17 07/18/17 11:52 17:39 23:30 WBC RBC Hgb Hct MCV MCH MCHC RDW Plt Count MPV Neut % (Auto) Lymph % (Auto) [place] % (Auto) Eos % (Auto) Baso % (Auto) Neut # Lymph # [place] # Eos # Baso # Sodium Potassium Chloride Carbon Dioxide Anion Gap BUN Creatinine Est GFR ( Amer) Est GFR (Non-Af Amer) POC Glucose (mg/dL) 179 H 126 H 134 H Random Glucose Calcium Phosphorus Magnesium Total Bilirubin AST ALT Alkaline Phosphatase Total Protein Albumin Globulin Albumin/Globulin Ratio Procalcitonin Urine Color Urine Clarity Urine pH Ur Specific [place] Urine Protein Urine Glucose (UA) Urine Ketones Urine Blood Urine Nitrate Urine Bilirubin Urine Urobilinogen Ur Leukocyte Esterase Urine WBC (Auto) Urine RBC (Auto) Urine Bacteria 07/19/17 07/19/17 07/19/17 06:17 06:17 06:17 WBC 7.8 RBC 3.59 L Hgb 9.6 L Hct 29.8 L MCV 82.9 MCH 26.8 L MCHC 32.3 L RDW 14.0 Plt Count 200 MPV 9.6 Neut % (Auto) 81.8 H Lymph % (Auto) 11.5 L [place] % (Auto) 5.2 Eos % (Auto) 1.1 Baso % (Auto) 0.4 Neut # 6.4 Lymph # 0.9 L [place] # 0.4 Eos # 0.1 Baso # 0.0 Sodium 138 Potassium 4.0 Chloride 105 Carbon Dioxide 25 Anion Gap 12 BUN 4 L Creatinine 0.9 Est GFR ( Amer) > 60 Est GFR (Non-Af Amer) > 60 POC Glucose (mg/dL) Random Glucose 114 H Calcium 8.5 L Phosphorus 2.7 Magnesium 1.9 Total Bilirubin 0.4 AST 202 H D ALT 339 H D Alkaline Phosphatase 102 Total Protein 6.9 Albumin 3.3 L D Globulin 3.7 Albumin/Globulin Ratio 0.9 L Procalcitonin Urine Color Urine Clarity Urine pH Ur Specific [place] Urine Protein Urine Glucose (UA) Urine Ketones Urine Blood Urine Nitrate Urine Bilirubin Urine Urobilinogen Ur Leukocyte Esterase Urine WBC (Auto) Urine RBC (Auto) Urine Bacteria 07/19/17 07/19/17 06:27 07:45 WBC RBC Hgb Hct MCV MCH MCHC RDW Plt Count MPV Neut % (Auto) Lymph % (Auto) [place] % (Auto) Eos % (Auto) Baso % (Auto) Neut # Lymph # [place] # Eos # Baso # Sodium Potassium Chloride Carbon Dioxide Anion Gap BUN Creatinine Est GFR ( Amer) Est GFR (Non-Af Amer) POC Glucose (mg/dL) 128 H 138 H Random Glucose Calcium Phosphorus Magnesium Total Bilirubin AST ALT Alkaline Phosphatase Total Protein Albumin Globulin Albumin/Globulin Ratio Procalcitonin Urine Color Urine Clarity Urine pH Ur Specific [place] Urine Protein Urine Glucose (UA) Urine Ketones Urine Blood Urine Nitrate Urine Bilirubin Urine Urobilinogen Ur Leukocyte Esterase Urine WBC (Auto) Urine RBC (Auto) Urine Bacteria Fingerstick Blood Sugar Results: 1,228 Review of Systems - Constitutional Constitutional: absent: Fever, Chills - Respiratory Respiratory: absent: Cough, Wheezing, Snoring, Pain with Coughing - Gastrointestinal Gastrointestinal: Abdominal Pain, Belching, Constipation Additional comments: abdominal pain appropriate s/p hemicolectomy - Genitourinary Genitourinary: absent: Difficulty Urinating - Musculoskeletal Musculoskeletal: absent: Numbness, Tingling - Integumentary Integumentary: absent: Rash - Hematologic/Lymphatic Hematologic: absent: Easy Bleeding, Easy Bruising Critical Care Progress Note - Nutrition Nutrition: Nutrition Category Date Time Status NPO Diet [DIET] Diets 07/17/17 Breakfast Active Assessment/Plan - Assessment and Plan (Free Text) Assessment: 61 y/o F with pmhx of Colon CA, DM II, HTN, HLD, CAD, COPD, [place], Seizures, Migraines, Anemia, TIA POD#2 s/p right hemicolectomy Today's Plan: Patient stable for transfer to med/ surg Neuro: intact, hx migraines Medications and management: * Topamax 50 mg po daily Cardio: hx HTN, TIA Medications and management: * Procardia XL 90mg po daily * Plavix 75 mg po daily Pulm: hx COPD Medications and management: * Advair Diskus 250/50 Heme: H/H stable post surgery Endo: hx DM II Medications and management: * R ISS GI: Acute Transaminitis, POD#2 s/p R hemicolectomy Medications and management: * AST: 719 ALT: 570, repeat on 07/18 AST:610 ALT:588 * AST: 202, ALT: 339 on 07/19 * stopped Crestor and Tylenol on 07/18 * Flagyl 250 mg q8h ID: Medications and management: * Ceftriaxone 1gm daily * Procalcitonin: 1.02 * Bands: 20 * f/u Urine and Blood culture Prophylaxis: * DVT: Heparin 5000 u sc q8h * GI: Protonix 40 mg IVP daily * KCl 20 meq in D5 1/2NS @125 cc/hr * Zofran 4 mg ivp q8h PRN * Morphine INFORMATICS PHARMACIST <Arvind Early S - Last Filed: 07/19/17 17:35> CCU Objective - Vital Signs / Intake & Output Vital Signs (Last 4 hours): Vital Signs Temp 07/19/17 16:00 99.1 F Intake and Output (Last 8hrs): Intake & Output 07/19/17 07/19/17 07/19/17 06:59 14:59 22:59 Intake Total 925 600 Output Total 1345 455 Balance -420 145 Intake: Intake, IV Amount 925 600 right hand 925 600 Oral 0 0 Output: Gastric Amount 50 Right Nares 50 Urine 1295 455 Urethral (Dickens) 1295 455 Emesis 0 0 Other: # Bowel Movements 0 0 - Medications Active Medications: Active Medications Generic Name Dose Route Start Last Admin Trade Name Freq PRN Reason Stop Dose Admin Albuterol Sulfate 2.5 mg 07/13/17 20:00 07/19/17 14:32 Albuterol 0.083% Inhal Nasra (2.5 Mg/3 Ml) Ud IH 2.5 mg RQ6 ISIDORO Administration Clopidogrel Bisulfate 75 mg 07/12/17 15:00 07/19/17 10:02 Plavix PO Not Given DAILY [facility]IDORO Dextrose 0 ml 07/12/17 14:24 Dextrose 50% Inj IV STAT PRN Hyglycemia Protocol Protocol Dextrose 0 gm 07/12/17 14:24 Glutose 15 PO ONCE PRN Hypoglycemia Protocol Protocol Heparin Sodium (Porcine) 5,000 units 07/18/17 06:00 07/19/17 14:29 Heparin SC 5,000 units Q8 ISIDORO Administration Hydromorphone HCl 0.5 mg 07/17/17 18:12 07/17/17 19:49 Dilaudid IVP 0.5 mg Q5M PRN Administration Pain, moderate (4-7) Potassium Chloride/Dextrose/Sod Cl 1,000 mls @ 125 mls/hr 07/17/17 17:45 10:10 Potassium Chl 20 Meq In D5-1/2ns IV 125 mls/hr .Q8H ISIDORO Administration Ceftriaxone Sodium 1 gm/ 100 mls @ 100 mls/hr 07/18/17 10:00 07/19/17 10:10 Sodium Chloride IVPB 100 mls/hr DAILY ISIDORO Administration Metronidazole 250 mg in 50 mls @ 100 mls/hr 07/17/17 22:00 07/19/17 14:25 Flagyl IVPB 07/22/17 22:01 100 mls/hr Q8 ISIDORO Administration Insulin Human Regular 0 unit 07/18/17 00:00 07/19/17 11:51 Novolin R SC Not Given Q6H [facility]ORO Protocol Loratadine 10 mg 07/13/17 10:00 07/19/17 10:01 Claritin PO Not Given DAILY [facility] Morphine Sulfate/Sodium Chloride 30 mg 07/17/17 18:12 07/18/17 14:03 Morphine Audio Visual Manager Monoject Barrel IV 30 mg Q4H PRN Administration Pain, moderate (4-7) Protocol Multivitamins 1 tab 07/13/17 10:00 07/19/17 10:02 Hexavitamin PO Not Given DAILY [facility] Nifedipine 90 mg 07/12/17 16:00 07/19/17 10:02 Procardia Xl PO Not Given DAILY [facility] Ondansetron HCl 4 mg 07/14/17 14:30 07/18/17 12:03 Zofran Inj IVP 4 mg Q8H PRN Administration Nausea/Vomiting Pantoprazole Sodium 40 mg 07/17/17 12:30 07/19/17 10:14 Protonix Inj IVP 40 mg DAILY ISIDORO Administration Fluticasone/Salmeterol 1 puff 07/12/17 22:00 07/19/17 07:50 Advair Diskus 250/50 IH 1 puff RQ12 ISIDORO Administration Topiramate 50 mg 07/14/17 10:00 07/19/17 10:02 Topamax PO Not Given DAILY [facility] Zinc Acetate/Diphenhydramine 1 cre 07/12/17 14:06 07/12/17 15:26 Benadryl 1% Zinc Acetate -0.1% TOP 1 applic BID PRN Administration Itching / Pruritus - Patient Studies Lab Studies: Microbiology Studies 07/18/17 09:16 Blood Culture - Preliminary Blood-Venous NO GROWTH AFTER 24 HOURS 07/18/17 09:16 Blood Culture - Preliminary Blood-Venous NO GROWTH AFTER 24 HOURS 07/18/17 09:16 Urine Culture - Final Urine No Growth (<1,000 CFU/ML) 07/17/17 22:45 MRSA Culture (Admit) - Final Nose MRSA NOT DETECTED Lab Studies 07/19/17 07/19/17 07/19/17 Range/Units 11:25 07:45 06:27 WBC (4.8-10.8) K/uL RBC (3.80-5.20) Mil/uL Hgb (11.0-16.0) g/dL Hct (34.0-47.0) % MCV (81.0-99.0) fL MCH (27.0-31.0) pg MCHC (33.0-37.0) g/dL RDW (11.5-14.5) % Plt Count (130-400) K/uL MPV (7.2-11.7) fL Neut % (Auto) (50.0-75.0) % Lymph % (Auto) (20.0-40.0) % [place] % (Auto) (0.0-10.0) % Eos % (Auto) (0.0-4.0) % Baso % (Auto) (0.0-2.0) % Neut # (1.8-7.0) K/uL Lymph # (1.0-4.3) K/uL [place] # (0.0-0.8) K/uL Eos # (0.0-0.7) K/uL Baso # (0.0-0.2) K/uL Sodium (132-148) mmol/L Potassium (3.6-5.2) mmol/L Chloride (98-107) mmol/L Carbon Dioxide (22-30) mmol/L Anion Gap (10-20) BUN (7-17) mg/dL Creatinine (0.7-1.2) mg/dL Est GFR ( Amer) Est GFR (Non-Af Amer) POC Glucose (mg/dL) 129 H 138 H 128 H (65-110) mg/dL Random Glucose (65-105) mg/dL Calcium (8.6-10.4) mg/dl Phosphorus (2.5-4.5) mg/dL Magnesium (1.6-2.3) mg/dL Total Bilirubin (0.2-1.3) mg/dL AST (14-36) U/L ALT (9-52) U/L Alkaline Phosphatase (38-126) U/L Total Protein (6.3-8.3) g/dL Albumin (3.5-5.0) g/dL Globulin (2.2-3.9) gm/dL Albumin/Globulin Ratio (1.0-2.1) 07/19/17 07/19/17 07/19/17 Range/Units 06:17 06:17 06:17 WBC 7.8 (4.8-10.8) K/uL RBC 3.59 L (3.80-5.20) Mil/uL Hgb 9.6 L (11.0-16.0) g/dL Hct 29.8 L (34.0-47.0) % MCV 82.9 (81.0-99.0) fL MCH 26.8 L (27.0-31.0) pg MCHC 32.3 L (33.0-37.0) g/dL RDW 14.0 (11.5-14.5) % Plt Count 200 (130-400) K/uL MPV 9.6 (7.2-11.7) fL Neut % (Auto) 81.8 H (50.0-75.0) % Lymph % (Auto) 11.5 L (20.0-40.0) % [place] % (Auto) 5.2 (0.0-10.0) % Eos % (Auto) 1.1 (0.0-4.0) % Baso % (Auto) 0.4 (0.0-2.0) % Neut # 6.4 (1.8-7.0) K/uL Lymph # 0.9 L (1.0-4.3) K/uL [place] # 0.4 (0.0-0.8) K/uL Eos # 0.1 (0.0-0.7) K/uL Baso # 0.0 (0.0-0.2) K/uL Sodium 138 (132-148) mmol/L Potassium 4.0 (3.6-5.2) mmol/L Chloride 105 (98-107) mmol/L Carbon Dioxide 25 (22-30) mmol/L Anion Gap 12 (10-20) BUN 4 L (7-17) mg/dL Creatinine 0.9 (0.7-1.2) mg/dL Est GFR ( Amer) > 60 Est GFR (Non-Af Amer) > 60 POC Glucose (mg/dL) (65-110) mg/dL Random Glucose 114 H (65-105) mg/dL Calcium 8.5 L (8.6-10.4) mg/dl Phosphorus 2.7 (2.5-4.5) mg/dL Magnesium 1.9 (1.6-2.3) mg/dL Total Bilirubin 0.4 (0.2-1.3) mg/dL AST 202 H D (14-36) U/L ALT 339 H D (9-52) U/L Alkaline Phosphatase 102 (38-126) U/L Total Protein 6.9 (6.3-8.3) g/dL Albumin 3.3 L D (3.5-5.0) g/dL Globulin 3.7 (2.2-3.9) gm/dL Albumin/Globulin Ratio 0.9 L (1.0-2.1) 07/18/17 07/18/17 Range/Units 23:30 17:39 WBC (4.8-10.8) K/uL RBC (3.80-5.20) Mil/uL Hgb (11.0-16.0) g/dL Hct (34.0-47.0) % MCV (81.0-99.0) fL MCH (27.0-31.0) pg MCHC (33.0-37.0) g/dL RDW (11.5-14.5) % Plt Count (130-400) K/uL MPV (7.2-11.7) fL Neut % (Auto) (50.0-75.0) % Lymph % (Auto) (20.0-40.0) % [place] % (Auto) (0.0-10.0) % Eos % (Auto) (0.0-4.0) % Baso % (Auto) (0.0-2.0) % Neut # (1.8-7.0) K/uL Lymph # (1.0-4.3) K/uL [place] # (0.0-0.8) K/uL Eos # (0.0-0.7) K/uL Baso # (0.0-0.2) K/uL Sodium (132-148) mmol/L Potassium (3.6-5.2) mmol/L Chloride (98-107) mmol/L Carbon Dioxide (22-30) mmol/L Anion Gap (10-20) BUN (7-17) mg/dL Creatinine (0.7-1.2) mg/dL Est GFR ( Amer) Est GFR (Non-Af Amer) POC Glucose (mg/dL) 134 H 126 H (65-110) mg/dL Random Glucose (65-105) mg/dL Calcium (8.6-10.4) mg/dl Phosphorus (2.5-4.5) mg/dL Magnesium (1.6-2.3) mg/dL Total Bilirubin (0.2-1.3) mg/dL AST (14-36) U/L ALT (9-52) U/L Alkaline Phosphatase (38-126) U/L Total Protein (6.3-8.3) g/dL Albumin (3.5-5.0) g/dL Globulin (2.2-3.9) gm/dL Albumin/Globulin Ratio (1.0-2.1) Laboratory Results - last 24 hr 07/18/17 07/18/17 07/19/17 17:39 23:30 06:17 WBC 7.8 RBC 3.59 L Hgb 9.6 L Hct 29.8 L MCV 82.9 MCH 26.8 L MCHC 32.3 L RDW 14.0 Plt Count 200 MPV 9.6 Neut % (Auto) 81.8 H Lymph % (Auto) 11.5 L [place] % (Auto) 5.2 Eos % (Auto) 1.1 Baso % (Auto) 0.4 Neut # 6.4 Lymph # 0.9 L [place] # 0.4 Eos # 0.1 Baso # 0.0 Sodium Potassium Chloride Carbon Dioxide Anion Gap BUN Creatinine Est GFR ( Amer) Est GFR (Non-Af Amer) POC Glucose (mg/dL) 126 H 134 H Random Glucose Calcium Phosphorus Magnesium Total Bilirubin AST ALT Alkaline Phosphatase Total Protein Albumin Globulin Albumin/Globulin Ratio 07/19/17 07/19/17 07/19/17 06:17 06:17 06:27 WBC RBC Hgb Hct MCV MCH MCHC RDW Plt Count MPV Neut % (Auto) Lymph % (Auto) [place] % (Auto) Eos % (Auto) Baso % (Auto) Neut # Lymph # [place] # Eos # Baso # Sodium 138 Potassium 4.0 Chloride 105 Carbon Dioxide 25 Anion Gap 12 BUN 4 L Creatinine 0.9 Est GFR ( Amer) > 60 Est GFR (Non-Af Amer) > 60 POC Glucose (mg/dL) 128 H Random Glucose 114 H Calcium 8.5 L Phosphorus 2.7 Magnesium 1.9 Total Bilirubin 0.4 AST 202 H D ALT 339 H D Alkaline Phosphatase 102 Total Protein 6.9 Albumin 3.3 L D Globulin 3.7 Albumin/Globulin Ratio 0.9 L 07/19/17 07/19/17 07:45 11:25 WBC RBC Hgb Hct MCV MCH MCHC RDW Plt Count MPV Neut % (Auto) Lymph % (Auto) [place] % (Auto) Eos % (Auto) Baso % (Auto) Neut # Lymph # [place] # Eos # Baso # Sodium Potassium Chloride Carbon Dioxide Anion Gap BUN Creatinine Est GFR ( Amer) Est GFR (Non-Af Amer) POC Glucose (mg/dL) 138 H 129 H Random Glucose Calcium Phosphorus Magnesium Total Bilirubin AST ALT Alkaline Phosphatase Total Protein Albumin Globulin Albumin/Globulin Ratio Critical Care Progress Note - Nutrition Nutrition: Nutrition Category Date Time Status NPO Diet [DIET] Diets 07/17/17 Breakfast Active Attending/Attestation - Attestation I have personally seen and examined this patient.: Yes I have fully participated in the care of the patient.: Yes I have reviewed all pertinent clinical information: Yes Notes (Text): 07/19/17 17:29 Patient seen and examined in the intensive care unit. Case discussed with house staff in the morning developed Status post right hemicolectomy LFTs improving Still not passing flatus or any bowel movement NG tube in place Continue pain medication Continue present treatment Continue IV fluids
[2017-07-19] MEDS: NIFEdipine 90 mg ER Tab PO SCH (10:02)
[2017-07-19] MEDS: Multiple Vitamins Tab PO SCH (10:02)
--- NOTE | 2017-07-19 23:39 | PN ---
DATE: 07/19/2017 ICU NOTE Postoperative day #2. SUBJECTIVE: The patient is resting comfortably in the ICU with an NG tube in. She is currently being transferred to regular floor and is awaiting a bed. PHYSICAL EXAMINATION: GENERAL: She is awake and alert. Complains only of mild incisional pain. VITAL SIGNS: Her temperature is 99.1, pulse is 89, respiratory rate is 12, and O2 sat is 97. LUNGS: Reveals decreased breath sounds at the bases. ABDOMEN: With decreased, but present bowel sounds. Clean sterile abdominal dressing. The output from her nasogastric tube was a total of 200 mL. Her urine output was 1295 mL for 24 hours. LABORATORY DATA: Pertinent laboratories included white count of 7.8, hemoglobin 9.6, hematocrit is 29.8, and SMA-7, which is within normal limits. IMPRESSION: She is stable on postoperative day #2, status post right hemicolectomy for cecal adenocarcinoma. She is awaiting transfer to a regular bed. PLAN: Is to continue the NG tube until her bowel function returns. She will continue to be hydrated until then. We will continue with postoperative antibiotics for another 24 hours. Demar Mills MD
[2017-07-20] MEDS: (Novolin R) Insulin Human Regular 100 units/ml vial SC SCH ×5 (00:55→23:45)
[2017-07-20] MEDS: Albuterol 0.083% Inhal Sol (2.5 mg/3 mL) UD IH SCH ×4 (01:42→20:38)
[2017-07-20] MEDS: Potassium Ch 20mEq in D5-1/2NS 1,000 ML IV SCH ×4 (04:34→19:43)
[2017-07-20] MEDS: metroNIDAZOLE IV 250mg/50 ml 250 MG/50 ML BAG IVPB SCH ×3 (05:18→21:38)
[2017-07-20 06:30] LABS: BASO % 0.3 % (0.0-2.0); EOS # 0.3 K/uL (0.0-0.7); EOS % 4.9 % (0.0-4.0); LYMPH # 1.1 K/uL (1.0-4.3); LYMPH % 16.3 % (20.0-40.0); MEAN CELL VOLUME 83.4 fL (81.0-99.0); MEAN CORPUSCULAR HEMOGLOBIN 26.9 pg (27.0-31.0); MEAN CORPUSCULAR HGB CONC 32.2 g/dL (33.0-37.0); MEAN PLATELET VOLUME 9.3 fL (7.2-11.7); MONO # 0.3 K/uL (0.0-0.8); MONO % 4.7 % (0.0-10.0); RED CELL DISTRIBUTION WIDTH 13.8 % (11.5-14.5); WHITE BLOOD COUNT 6.5 K/uL (4.8-10.8)
[2017-07-20 06:40] LABS: CHLORIDE 103 mmol/L (98-107)
[2017-07-20 06:41] LABS: SODIUM 137 mmol/L (132-148)
[2017-07-20 06:43] LABS: ALB/GLOB RATIO 0.9 (1.0-2.1); ALKALINE PHOSPHATASE 102 U/L (38-126); ALT/SGPT 216 U/L (9-52); AST/SGOT 100 U/L (14-36); BILIRUBIN,TOTAL 0.4 mg/dL (0.2-1.3); BLOOD UREA NITROGEN 4 mg/dL (7-17); CARBON DIOXIDE 25 mmol/L (22-30); GFR AFRICAN-AMERICAN > 60; GLUCOSE,RANDOM 141 mg/dL (65-105); TOTAL PROTEIN 7.1 g/dL (6.3-8.3)
[2017-07-20 06:44] LABS: CALCIUM 8.3 mg/dl (8.6-10.4); MAGNESIUM 1.8 mg/dL (1.6-2.3); PHOSPHOROUS 3.3 mg/dL (2.5-4.5)
[2017-07-20] MEDS: Fluticasone-Salmeterol 250-50mcg Diskus IH SCH ×2 (07:59→20:38)
[2017-07-20] MEDS: Multiple Vitamins Tab PO SCH (11:24)
[2017-07-20] MEDS: NIFEdipine 90 mg ER Tab PO SCH (11:25)
--- NOTE | 2017-07-20 11:33 | CP.PCM.PN ---
Subjective - Date & Time of Evaluation Date of Evaluation: 07/20/17 Time of Evaluation: 11:30 - Subjective Subjective: Progress note. Attending: Dr. Chand Pt seen and examined at bedside. No acute distress. No events overnight. S/P hemicolectomy. No flatus or BM. NG tube in place, sx following. Objective - Vital Signs/Intake and Output Vital Signs (last 24 hours): Temp Pulse Resp BP Pulse Ox 98.4 F 94 H 10 L 124/77 100 07/19/17 23:50 07/20/17 04:00 07/20/17 04:00 07/20/17 04:00 07/20/17 04:00 Intake and Output: 07/20/17 07/20/17 06:59 18:59 Intake Total 750 Output Total 150 Balance 600 - Medications Medications: Current Medications Albuterol Sulfate (Albuterol 0.083% Inhal Nasra (2.5 Mg/3 Ml) Ud) 2.5 mg IH RQ6 [facility] Last Admin: 07/20/17 07:59 Dose: 2.5 mg Clopidogrel Bisulfate (Plavix) 75 mg PO DAILY [facility] Last Admin: 07/20/17 11:24 Dose: Not Given Dextrose (Dextrose 50% Inj) 0 ml IV STAT PRN; Protocol PRN Reason: Hyglycemia Protocol Dextrose (Glutose 15) 0 gm PO ONCE PRN; Protocol PRN Reason: Hypoglycemia Protocol Heparin Sodium (Porcine) (Heparin) 5,000 units SC Q8 [facility] Last Admin: 07/20/17 05:18 Dose: 5,000 units Hydromorphone HCl (Dilaudid) 0.5 mg IVP Q5M PRN PRN Reason: Pain, moderate (4-7) Last Admin: 07/17/17 19:49 Dose: 0.5 mg Hydromorphone HCl (Dilaudid) 2 mg IVP Q4H PRN PRN Reason: Pain, moderate (4-7) Last Admin: 07/19/17 21:02 Dose: 2 mg Potassium Chloride/Dextrose/Sod Cl (Potassium Chl 20 Meq In D5-1/2ns) 1,000 mls @ 125 mls/hr IV .Q8H [facility] Last Admin: 07/20/17 11:24 Dose: Not Given Ceftriaxone Sodium 1 gm/ (Sodium Chloride) 100 mls @ 100 mls/hr IVPB DAILY [facility] Last Admin: 07/19/17 10:10 Dose: 100 mls/hr Metronidazole (Flagyl) 250 mg in 50 mls @ 100 mls/hr IVPB Q8 [facility] Stop: 07/22/17 22:01 Last Admin: 07/20/17 05:18 Dose: 100 mls/hr Insulin Human Regular (Novolin R) 0 unit SC Q6H [facility] PRN Reason: Protocol Last Admin: 07/20/17 05:22 Dose: Not Given Loratadine (Claritin) 10 mg PO DAILY [facility] Last Admin: 07/20/17 11:24 Dose: Not Given Multivitamins (Hexavitamin) 1 tab PO DAILY [facility] Last Admin: 07/20/17 11:24 Dose: Not Given Nifedipine (Procardia Xl) 90 mg PO DAILY [facility] Last Admin: 07/20/17 11:25 Dose: Not Given Ondansetron HCl (Zofran Inj) 4 mg IVP Q8H PRN PRN Reason: Nausea/Vomiting Last Admin: 07/18/17 12:03 Dose: 4 mg Pantoprazole Sodium (Protonix Inj) 40 mg IVP DAILY [facility] Last Admin: 07/19/17 10:14 Dose: 40 mg Fluticasone/Salmeterol (Advair Diskus 250/50) 1 puff IH RQ12 [facility] Last Admin: 07/20/17 07:59 Dose: 1 puff Topiramate (Topamax) 50 mg PO DAILY [facility] Last Admin: 07/20/17 11:25 Dose: Not Given Zinc Acetate/Diphenhydramine (Benadryl 1% Zinc Acetate -0.1%) 1 cre TOP BID PRN PRN Reason: Itching / Pruritus Last Admin: 07/12/17 15:26 Dose: 1 applic - Labs Labs: 07/20/17 06:18 07/20/17 06:18 PT 10.8 SECONDS (9.7-12.2) 07/12/17 12:56 INR 1.0 07/12/17 12:56 APTT 30 SECONDS (21-34) 07/12/17 12:56 - Constitutional Appears: Non-toxic, No Acute Distress - Head Exam Head Exam: ATRAUMATIC, NORMAL INSPECTION, NORMOCEPHALIC - Eye Exam Eye Exam: EOMI - ENT Exam ENT Exam: Mucous Membranes Moist - Neck Exam Neck Exam: Full ROM - Respiratory Exam Respiratory Exam: NORMAL BREATHING PATTERN. absent: Respiratory Distress - Cardiovascular Exam Cardiovascular Exam: +S1, +S2 - GI/Abdominal Exam GI & Abdominal Exam: Soft, Tenderness, Normal Bowel Sounds - Extremities Exam Extremities Exam: Full ROM, Normal Inspection - Neurological Exam Neurological Exam: Alert, Awake, Oriented x3 - Psychiatric Exam Psychiatric exam: Normal Affect, Normal Mood - Skin Skin Exam: Dry, Intact, Normal Color, Warm Assessment and Plan - Assessment and Plan (Free Text) Assessment: This is a 61 year old female with a past medical history of DM, CAD, HTN, COPD, Migraines, and seizure disorder, presenting with Colon Cancer -s/p right hemicolectomy -NG tube in place -abdominal binder in place continue to follow sx recs. -dilaudid 2 q 4 -Dr. Wolf consulted for pre op medical clearance; appreciate recs -continue incentive spirometry Elevated LFTs; downtrending Hepatitis panel negative DM;chronic -continue ISS CAD Plavix 75mg HTN Procardia XL 90mg daily COPD Home Advair, nebulizer, Singular Migraines Topamax 50mg daily Psorasis Benadryl cream as needed Prophylatic Measure Lovenox 40mg SC Protonix 40mg daily SCDs Claritin 10mg Alll management as per Dr. Chand
--- NOTE | 2017-07-20 15:46 | PN ---
DATE: 07/20/2017 SUBJECTIVE: The patient remains in ICU as bed is not available. She is sitting in a chair, resting comfortably. Her NG tube output for the last 24 hours was 125 mL of dark material. She has not passed gas or had a bowel movement as of yet. PHYSICAL EXAMINATION: VITAL SIGNS: Her temperature is 98.4, pulse is 94, BP 124/77, respiratory rate is 10 and regular. LUNGS: Have decreased breath sounds at the bases. ABDOMEN: There were more active bowel sounds noted today. The dressing is clean and dry. LABORATORY DATA: Her lab work was reviewed and there were no abnormalities. IMPRESSION: She is postop day #3 from right hemicolectomy. She has increased bowel sound activity and decreased NG tube drainage. For this reason, the NG tube will be removed. She will be moved to a regular bed as soon as possible. Once her bowel function returns, we will advance her diet. Demar Mills MD
[2017-07-21] MEDS: Albuterol 0.083% Inhal Sol (2.5 mg/3 mL) UD IH SCH ×4 (01:18→20:05)
[2017-07-21] MEDS: Potassium Ch 20mEq in D5-1/2NS 1,000 ML IV SCH ×3 (02:02→17:31)
[2017-07-21 03:24] VITALS: RESP 20
[2017-07-21] MEDS: metroNIDAZOLE IV 250mg/50 ml 250 MG/50 ML BAG IVPB SCH ×3 (06:00→21:42)
[2017-07-21] MEDS: (Novolin R) Insulin Human Regular 100 units/ml vial SC SCH ×3 (06:00→17:34)
[2017-07-21 07:29] LABS: BASO % 0.6 % (0.0-2.0); EOS # 0.3 K/uL (0.0-0.7); EOS % 5.5 % (0.0-4.0); HEMATOCRIT 27.4 % (34.0-47.0); LYMPH # 1.2 K/uL (1.0-4.3); LYMPH % 20.9 % (20.0-40.0); MEAN CELL VOLUME 82.3 fL (81.0-99.0); MEAN CORPUSCULAR HEMOGLOBIN 26.8 pg (27.0-31.0); MEAN CORPUSCULAR HGB CONC 32.6 g/dL (33.0-37.0); MONO # 0.4 K/uL (0.0-0.8); MONO % 6.1 % (0.0-10.0); WHITE BLOOD COUNT 5.8 K/uL (4.8-10.8)
[2017-07-21] MEDS: Fluticasone-Salmeterol 250-50mcg Diskus IH SCH ×2 (07:31→20:05)
[2017-07-21 07:44] LABS: CHLORIDE 104 mmol/L (98-107); MAGNESIUM 1.9 mg/dL (1.6-2.3); PHOSPHOROUS 3.3 mg/dL (2.5-4.5); POTASSIUM 3.5 mmol/L (3.6-5.2); SODIUM 138 mmol/L (132-148)
[2017-07-21 07:46] LABS: BILIRUBIN,TOTAL 0.8 mg/dL (0.2-1.3); GFR AFRICAN-AMERICAN > 60
[2017-07-21 07:47] LABS: ALB/GLOB RATIO 1.2 (1.0-2.1); ALKALINE PHOSPHATASE 112 U/L (38-126); ALT/SGPT 156 U/L (9-52); AST/SGOT 65 U/L (14-36); BLOOD UREA NITROGEN 5 mg/dL (7-17); CARBON DIOXIDE 24 mmol/L (22-30); GLUCOSE,RANDOM 92 mg/dL (65-105); TOTAL PROTEIN 6.6 g/dL (6.3-8.3)
[2017-07-21 07:48] LABS: CALCIUM 8.6 mg/dl (8.6-10.4)
--- NOTE | 2017-07-21 09:23 | RAD ---
HISTORY: R/O ATELECTASIS COMPARISON: Comparison chest dated 02/11/2015 FINDINGS: LUNGS: Minor bibasilar atelectasis. PLEURA: No significant pleural effusion identified, no pneumothorax apparent. CARDIOVASCULAR: Heart is upper limits of normal in size OSSEOUS STRUCTURES: No significant abnormalities. VISUALIZED UPPER ABDOMEN: Normal. OTHER FINDINGS: None. IMPRESSION: Minor bibasilar atelectasis.
[2017-07-21] MEDS: NIFEdipine 90 mg ER Tab PO SCH (10:29)
[2017-07-21] MEDS: Multiple Vitamins Tab PO SCH (10:29)
[2017-07-21] MEDS: HYDROmorphone 1 mg/ml ISec IVP PRN ×2 (10:37→15:20)
--- NOTE | 2017-07-21 12:01 | CP.PCM.PN ---
Subjective - Date & Time of Evaluation Date of Evaluation: 07/21/17 Time of Evaluation: 12:00 - Subjective Subjective: Progress note. Attending: Dr. Chand Pt seen and examined at bedside. No acute distress. No events overnight. No fevers, chills, vomiting, diarrhea. No BM or flatus yet. Objective - Vital Signs/Intake and Output Vital Signs (last 24 hours): Temp Pulse Resp BP Pulse Ox 98.3 F 84 20 122/78 100 07/21/17 07:35 07/21/17 07:35 07/21/17 07:35 07/21/17 07:35 07/21/17 07:35 Intake and Output: 07/21/17 07/21/17 06:59 18:59 Intake Total 800 Balance 800 - Medications Medications: Current Medications Albuterol Sulfate (Albuterol 0.083% Inhal Nasra (2.5 Mg/3 Ml) Ud) 2.5 mg IH RQ6 [facility] Last Admin: 07/21/17 07:31 Dose: 2.5 mg Clopidogrel Bisulfate (Plavix) 75 mg PO DAILY [facility] Last Admin: 07/21/17 10:29 Dose: Not Given Dextrose (Dextrose 50% Inj) 0 ml IV STAT PRN; Protocol PRN Reason: Hyglycemia Protocol Dextrose (Glutose 15) 0 gm PO ONCE PRN; Protocol PRN Reason: Hypoglycemia Protocol Hydromorphone HCl (Dilaudid) 0.5 mg IVP Q5M PRN PRN Reason: Pain, moderate (4-7) Last Admin: 07/17/17 19:49 Dose: 0.5 mg Hydromorphone HCl (Dilaudid) 2 mg IVP Q4H PRN PRN Reason: Pain, moderate (4-7) Last Admin: 07/21/17 10:37 Dose: 2 mg Metronidazole (Flagyl) 250 mg in 50 mls @ 100 mls/hr IVPB Q8 [facility] Stop: 07/22/17 22:01 Last Admin: 07/21/17 06:00 Dose: 100 mls/hr Potassium Chloride/Dextrose/Sod Cl (Potassium Chl 20 Meq In D5-1/2ns) 1,000 mls @ 80 mls/hr IV .[id number] [facility] Last Admin: 07/21/17 11:24 Dose: 80 mls/hr Ceftriaxone Sodium 1 gm/ (Sodium Chloride) 50 mls @ 100 mls/hr IVPB DAILY [facility] Last Admin: 07/21/17 11:23 Dose: 100 mls/hr Insulin Human Regular (Novolin R) 0 unit SC Q6H [facility] PRN Reason: Protocol Last Admin: 07/21/17 06:00 Dose: Not Given Loratadine (Claritin) 10 mg PO DAILY [facility] Last Admin: 07/21/17 10:29 Dose: Not Given Multivitamins (Hexavitamin) 1 tab PO DAILY [facility] Last Admin: 07/21/17 10:29 Dose: Not Given Nifedipine (Procardia Xl) 90 mg PO DAILY [facility] Last Admin: 07/21/17 10:29 Dose: Not Given Ondansetron HCl (Zofran Inj) 4 mg IVP Q8H PRN PRN Reason: Nausea/Vomiting Last Admin: 07/18/17 12:03 Dose: 4 mg Pantoprazole Sodium (Protonix Inj) 40 mg IVP DAILY [facility] Last Admin: 07/21/17 10:36 Dose: 40 mg Fluticasone/Salmeterol (Advair Diskus 250/50) 1 puff IH RQ12 [facility] Last Admin: 07/21/17 07:31 Dose: 1 puff Topiramate (Topamax) 50 mg PO DAILY [facility] Last Admin: 07/21/17 10:29 Dose: Not Given Zinc Acetate/Diphenhydramine (Benadryl 1% Zinc Acetate -0.1%) 1 cre TOP BID PRN PRN Reason: Itching / Pruritus Last Admin: 07/12/17 15:26 Dose: 1 applic - Labs Labs: 07/21/17 07:03 07/21/17 07:03 PT 10.8 SECONDS (9.7-12.2) 07/12/17 12:56 INR 1.0 07/12/17 12:56 APTT 30 SECONDS (21-34) 07/12/17 12:56 - Constitutional Appears: Non-toxic, No Acute Distress - Head Exam Head Exam: ATRAUMATIC, NORMAL INSPECTION, NORMOCEPHALIC - Eye Exam Eye Exam: EOMI - Neck Exam Neck Exam: Full ROM - Respiratory Exam Respiratory Exam: NORMAL BREATHING PATTERN. absent: Respiratory Distress - Cardiovascular Exam Cardiovascular Exam: +S1, +S2 - GI/Abdominal Exam GI & Abdominal Exam: Soft, Normal Bowel Sounds. absent: Tenderness - Extremities Exam Extremities Exam: Full ROM, Normal Inspection - Back Exam Back Exam: NORMAL INSPECTION - Neurological Exam Neurological Exam: Alert, Awake, Oriented x3 - Psychiatric Exam Psychiatric exam: Normal Affect, Normal Mood - Skin Skin Exam: Dry, Intact, Normal Color, Warm Assessment and Plan - Assessment and Plan (Free Text) Assessment: This is a 61 year old female with a past medical history of DM, CAD, HTN, COPD, Migraines, and seizure disorder, presenting with Colon Cancer -s/p right hemicolectomy -NG tube removed -abdominal binder in place continue to follow sx recs. -dilaudid 2 q 4 -Dr. Wolf consulted for pre op medical clearance; appreciate recs -continue incentive spirometry Elevated LFTs; downtrending Hepatitis panel negative DM;chronic -continue ISS CAD Plavix 75mg HTN Procardia XL 90mg daily COPD Home Advair, nebulizer, Singular Migraines Topamax 50mg daily Psorasis Benadryl cream as needed Prophylatic Measure Lovenox 40mg SC Protonix 40mg daily SCDs Claritin 10mg Alll management as per Dr. Chand
--- NOTE | 2017-07-21 20:55 | CP.PCM.CON ---
History of Present Illness - History of Present Illness History of Present Illness: 61 year old female with a history of DM, HTN, HL, COPD, TIA, recently diagnosed with colon cancer s/p hemicolectomy. The patient reports to recuperating well since her surgery. She does have some intermittent abdominal discomfort at her surgical site. She has no fevers or chills Review of her pathology shows pT2 N0. Past medical history: DM, HTN, HL, COPD, TIA, Colon cancer Past surgical history: Back surgery, hemicolectomy Family history: Several family members on her father side with colon cancer. Social history: Former tobacco abuse, denies alcohol and illicit drug use. Allergies: Several, see allergy list Review of systems: All remaining review of systems including HEENT, cardiovascular, respiratory, gastrointestinal, genitourinary, musculoskeletal, dermatologic, neurologic, and psychiatric are negative unless mentioned in the HPI. Past Patient History - Infectious Disease Hx of Infectious Diseases: None - Past Social History Smoking Status: Former Smoker - CARDIAC Hx Hypertension: Yes - PULMONARY Hx Chronic Obstructive Pulmonary Disease (COPD): Yes - NEUROLOGICAL Hx Migraine: Yes Hx Seizures: Yes Hx Transient Ischemic Attacks (TIA): Yes - ENDOCRINE/METABOLIC Hx Diabetes Mellitus Type 2: Yes - HEMATOLOGICAL/ONCOLOGICAL Hx Anemia: Yes - INTEGUMENTARY Hx Eczema: Yes - MUSCULOSKELETAL/RHEUMATOLOGICAL Hx Arthritis: Yes (BACK W/ SURGERY) - GASTROINTESTINAL Hx Gastrointestinal Disorders: Yes Other/Comment: GASTROPARESIS - PSYCHIATRIC Hx Substance Use: No - SURGICAL HISTORY Hx Appendectomy: Yes Hx Cholecystectomy: Yes - ANESTHESIA Hx Anesthesia: Yes Hx Anesthesia Reactions: No Meds Allergies/Adverse Reactions: Allergies Allergy/AdvReac Type Severity Reaction Status Date / Time aspirin Allergy Verified 07/12/17 11:28 bee venom protein (honey bee) Allergy Verified 07/12/17 11:28 sulfamethoxazole Allergy Verified 07/12/17 11:28 [From Bactrim] trimethoprim [From Bactrim] Allergy Verified 07/12/17 11:28 OIL BASED DYE Allergy Uncoded 07/12/17 11:28 - Medications Medications: Current Medications Albuterol Sulfate (Albuterol 0.083% Inhal Nasra (2.5 Mg/3 Ml) Ud) 2.5 mg IH RQ6 [facility] Last Admin: 07/21/17 20:05 Dose: 2.5 mg Clopidogrel Bisulfate (Plavix) 75 mg PO DAILY [facility] Last Admin: 07/21/17 10:29 Dose: Not Given Dextrose (Dextrose 50% Inj) 0 ml IV STAT PRN; Protocol PRN Reason: Hyglycemia Protocol Dextrose (Glutose 15) 0 gm PO ONCE PRN; Protocol PRN Reason: Hypoglycemia Protocol Hydromorphone HCl (Dilaudid) 2 mg IVP Q4H PRN PRN Reason: Pain, moderate (4-7) Last Admin: 07/21/17 15:20 Dose: 2 mg Metronidazole (Flagyl) 250 mg in 50 mls @ 100 mls/hr IVPB Q8 [facility] Stop: 07/22/17 22:01 Last Admin: 07/21/17 14:41 Dose: 100 mls/hr Ceftriaxone Sodium 1 gm/ (Sodium Chloride) 50 mls @ 100 mls/hr IVPB DAILY [facility] Last Admin: 07/21/17 11:23 Dose: 100 mls/hr Potassium Chloride/Dextrose/Sod Cl (Potassium Chl 20 Meq In D5-1/2ns) 1,000 mls @ 60 mls/hr IV .[id number] [facility] Insulin Human Regular (Novolin R) 0 unit SC Q6H [facility] PRN Reason: Protocol Last Admin: 07/21/17 17:34 Dose: Not Given Loratadine (Claritin) 10 mg PO DAILY [facility] Last Admin: 07/21/17 10:29 Dose: Not Given Multivitamins (Hexavitamin) 1 tab PO DAILY [facility] Last Admin: 07/21/17 10:29 Dose: Not Given Nifedipine (Procardia Xl) 90 mg PO DAILY [facility] Last Admin: 07/21/17 10:29 Dose: Not Given Ondansetron HCl (Zofran Inj) 4 mg IVP Q8H PRN PRN Reason: Nausea/Vomiting Last Admin: 07/18/17 12:03 Dose: 4 mg Pantoprazole Sodium (Protonix Inj) 40 mg IVP DAILY [facility] Last Admin: 07/21/17 10:36 Dose: 40 mg Fluticasone/Salmeterol (Advair Diskus 250/50) 1 puff IH RQ12 [facility] Last Admin: 07/21/17 20:05 Dose: 1 puff Topiramate (Topamax) 50 mg PO DAILY [facility] Last Admin: 07/21/17 10:29 Dose: Not Given Zinc Acetate/Diphenhydramine (Benadryl 1% Zinc Acetate -0.1%) 1 cre TOP BID PRN PRN Reason: Itching / Pruritus Last Admin: 07/12/17 15:26 Dose: 1 applic Physical Exam - Head Exam Head Exam: ATRAUMATIC - Eye Exam Eye Exam: Normal appearance - ENT Exam ENT Exam: Mucous Membranes Dry - Respiratory Exam Respiratory Exam: NORMAL BREATHING PATTERN - Cardiovascular Exam Cardiovascular Exam: +S1, +S2 - GI/Abdominal Exam GI & Abdominal Exam: Normal Bowel Sounds - Extremities Exam Extremities exam: Positive for: normal inspection - Neurological Exam Neurological exam: Oriented x3 - Psychiatric Exam Psychiatric exam: Normal Affect, Normal Mood - Skin Skin Exam: Warm Results - Vital Signs Recent Vital Signs: Last Vital Signs Temp 98.3 F 07/21/17 16:00 Pulse 92 H 07/21/17 16:00 Resp 20 07/21/17 16:00 BP 146/75 07/21/17 16:00 Pulse Ox 95 07/21/17 16:00 - Labs Result Diagrams: 07/21/17 07:03 07/21/17 07:03 Labs: Laboratory Results - last 24 hr 07/20/17 07/21/17 07/21/17 23:40 05:45 07:03 WBC 5.8 RBC 3.33 L Hgb 8.9 L Hct 27.4 L MCV 82.3 MCH 26.8 L MCHC 32.6 L RDW 14.0 Plt Count 238 MPV 9.0 Neut % (Auto) 66.9 Lymph % (Auto) 20.9 [place] % (Auto) 6.1 Eos % (Auto) 5.5 H Baso % (Auto) 0.6 Neut # 3.9 Lymph # 1.2 [place] # 0.4 Eos # 0.3 Baso # 0.0 Sodium Potassium Chloride Carbon Dioxide Anion Gap BUN Creatinine Est GFR ( Amer) Est GFR (Non-Af Amer) POC Glucose (mg/dL) 124 H 127 H Random Glucose Calcium Phosphorus Magnesium Total Bilirubin AST ALT Alkaline Phosphatase Total Protein Albumin Globulin Albumin/Globulin Ratio 07/21/17 07/21/17 07/21/17 07:03 07:03 07:20 WBC RBC Hgb Hct MCV MCH MCHC RDW Plt Count MPV Neut % (Auto) Lymph % (Auto) [place] % (Auto) Eos % (Auto) Baso % (Auto) Neut # Lymph # [place] # Eos # Baso # Sodium 138 Potassium 3.5 L Chloride 104 Carbon Dioxide 24 Anion Gap 14 BUN 5 L Creatinine 0.8 Est GFR ( Amer) > 60 Est GFR (Non-Af Amer) > 60 POC Glucose (mg/dL) 104 Random Glucose 92 Calcium 8.6 Phosphorus 3.3 Magnesium 1.9 Total Bilirubin 0.8 AST 65 H D ALT 156 H D Alkaline Phosphatase 112 Total Protein 6.6 Albumin 3.6 Globulin 3.0 Albumin/Globulin Ratio 1.2 07/21/17 07/21/17 10:56 16:35 WBC RBC Hgb Hct MCV MCH MCHC RDW Plt Count MPV Neut % (Auto) Lymph % (Auto) [place] % (Auto) Eos % (Auto) Baso % (Auto) Neut # Lymph # [place] # Eos # Baso # Sodium Potassium Chloride Carbon Dioxide Anion Gap BUN Creatinine Est GFR ( Amer) Est GFR (Non-Af Amer) POC Glucose (mg/dL) 111 H 112 H Random Glucose Calcium Phosphorus Magnesium Total Bilirubin AST ALT Alkaline Phosphatase Total Protein Albumin Globulin Albumin/Globulin Ratio Assessment & Plan (1) Colon cancer Assessment and Plan: s/p hemicolectomy stage II without high risk features does not require adjuvant chemotherapy outpatient surveillance Status: Acute (2) Anemia Assessment and Plan: surgical blood loss will check iron, b12, folate stores Thank you for this interesting consult. Status: Acute
[2017-07-22] MEDS: (Novolin R) Insulin Human Regular 100 units/ml vial SC SCH ×4 (00:49→16:30)
[2017-07-22] MEDS: Albuterol 0.083% Inhal Sol (2.5 mg/3 mL) UD IH SCH ×4 (01:26→19:09)
[2017-07-22] MEDS ORDERED: Apap-Butalbital-Caffeine 325-50-40mg Tab PO STA (03:09)
[2017-07-22] MEDS: Potassium Ch 20mEq in D5-1/2NS 1,000 ML IV SCH (03:25)
[2017-07-22] MEDS: metroNIDAZOLE IV 250mg/50 ml 250 MG/50 ML BAG IVPB SCH ×3 (05:50→21:18)
[2017-07-22] MEDS: Fluticasone-Salmeterol 250-50mcg Diskus IH SCH ×2 (07:40→19:08)
[2017-07-22 09:38] LABS: BASO % 0.9 % (0.0-2.0); EOS # 0.3 K/uL (0.0-0.7); EOS % 6.8 % (0.0-4.0); LYMPH # 1.3 K/uL (1.0-4.3); LYMPH % 27.2 % (20.0-40.0); MEAN CELL VOLUME 82.7 fL (81.0-99.0); MEAN CORPUSCULAR HEMOGLOBIN 25.8 pg (27.0-31.0); MEAN CORPUSCULAR HGB CONC 31.2 g/dL (33.0-37.0); MEAN PLATELET VOLUME 8.9 fL (7.2-11.7); MONO # 0.3 K/uL (0.0-0.8); WHITE BLOOD COUNT 4.9 K/uL (4.8-10.8)
[2017-07-22 09:48] LABS: CHLORIDE 104 mmol/L (98-107)
[2017-07-22 09:49] LABS: POTASSIUM 3.3 mmol/L (3.6-5.2); SODIUM 139 mmol/L (132-148)
[2017-07-22 09:51] LABS: ALB/GLOB RATIO 0.9 (1.0-2.1); ALKALINE PHOSPHATASE 110 U/L (38-126); AST/SGOT 39 U/L (14-36); BILIRUBIN,TOTAL 0.4 mg/dL (0.2-1.3); BLOOD UREA NITROGEN 5 mg/dL (7-17); CARBON DIOXIDE 26 mmol/L (22-30); GFR AFRICAN-AMERICAN > 60; GLUCOSE,RANDOM 105 mg/dL (65-105); TOTAL PROTEIN 7.5 g/dL (6.3-8.3)
[2017-07-22 09:52] LABS: ALT/SGPT 128 U/L (9-52); CALCIUM 8.9 mg/dl (8.6-10.4)
[2017-07-22] MEDS: Multiple Vitamins Tab PO SCH (11:15)
[2017-07-22] MEDS: NIFEdipine 90 mg ER Tab PO SCH (11:15)
[2017-07-22] MEDS: HYDROmorphone 1 mg/ml ISec IVP PRN (14:29)
[2017-07-23] MEDS: (Novolin R) Insulin Human Regular 100 units/ml vial SC SCH ×3 (00:34→12:11)
[2017-07-23] MEDS: Albuterol 0.083% Inhal Sol (2.5 mg/3 mL) UD IH SCH ×2 (01:07→07:38)
[2017-07-23] MEDS: HYDROmorphone 1 mg/ml ISec IVP PRN ×2 (01:37→14:05)
[2017-07-23] MEDS: Potassium Ch 20mEq in D5-1/2NS 1,000 ML IV SCH ×3 (01:51→18:24)
[2017-07-23] MEDS: Fluticasone-Salmeterol 250-50mcg Diskus IH SCH ×2 (07:38→20:07)
[2017-07-23 07:44] LABS: BASO % 0.9 % (0.0-2.0); EOS # 0.4 K/uL (0.0-0.7); HEMATOCRIT 26.7 % (34.0-47.0); LYMPH # 1.2 K/uL (1.0-4.3); LYMPH % 27.3 % (20.0-40.0); MEAN CELL VOLUME 81.7 fL (81.0-99.0); MEAN CORPUSCULAR HEMOGLOBIN 26.1 pg (27.0-31.0); MEAN CORPUSCULAR HGB CONC 31.9 g/dL (33.0-37.0); MEAN PLATELET VOLUME 8.5 fL (7.2-11.7); MONO # 0.4 K/uL (0.0-0.8); MONO % 8.8 % (0.0-10.0); NRBC % 0.1 % (0.0-2.0); RED CELL DISTRIBUTION WIDTH 13.9 % (11.5-14.5); WHITE BLOOD COUNT 4.4 K/uL (4.8-10.8)
[2017-07-23 07:53] LABS: CHLORIDE 104 mmol/L (98-107)
[2017-07-23 07:54] LABS: POTASSIUM 3.5 mmol/L (3.6-5.2); SODIUM 138 mmol/L (132-148)
[2017-07-23 07:56] LABS: ALB/GLOB RATIO 1.2 (1.0-2.1); ALKALINE PHOSPHATASE 148 U/L (38-126); AST/SGOT 49 U/L (14-36); BILIRUBIN,TOTAL 0.6 mg/dL (0.2-1.3); BLOOD UREA NITROGEN 3 mg/dL (7-17); CARBON DIOXIDE 26 mmol/L (22-30); GFR AFRICAN-AMERICAN > 60; TOTAL PROTEIN 6.1 g/dL (6.3-8.3)
[2017-07-23 07:57] LABS: ALT/SGPT 104 U/L (9-52); CALCIUM 8.5 mg/dl (8.6-10.4); GLUCOSE,RANDOM 95 mg/dL (65-105)
[2017-07-23] MEDS: Multiple Vitamins Tab PO SCH (11:02)
[2017-07-23] MEDS: NIFEdipine 90 mg ER Tab PO SCH (11:02)
[2017-07-24] MEDS: (Novolin R) Insulin Human Regular 100 units/ml vial SC SCH ×4 (00:18→18:35)
[2017-07-24] MEDS: Fluticasone-Salmeterol 250-50mcg Diskus IH SCH ×2 (08:05→19:59)
[2017-07-24 08:25] LABS: BASO % 0.6 % (0.0-2.0); EOS # 0.4 K/uL (0.0-0.7); EOS % 7.6 % (0.0-4.0); HEMATOCRIT 28.3 % (34.0-47.0); LYMPH # 1.2 K/uL (1.0-4.3); LYMPH % 26.4 % (20.0-40.0); MEAN CELL VOLUME 82.5 fL (81.0-99.0); MEAN CORPUSCULAR HEMOGLOBIN 26.6 pg (27.0-31.0); MEAN CORPUSCULAR HGB CONC 32.2 g/dL (33.0-37.0); MEAN PLATELET VOLUME 8.6 fL (7.2-11.7); MONO # 0.4 K/uL (0.0-0.8); MONO % 7.6 % (0.0-10.0); NRBC % 0.1 % (0.0-2.0); RED CELL DISTRIBUTION WIDTH 14.2 % (11.5-14.5); WHITE BLOOD COUNT 4.7 K/uL (4.8-10.8)
[2017-07-24 08:44] LABS: CHLORIDE 106 mmol/L (98-107); POTASSIUM 3.7 mmol/L (3.6-5.2); SODIUM 137 mmol/L (132-148)
[2017-07-24 08:46] LABS: BILIRUBIN,TOTAL 0.6 mg/dL (0.2-1.3); CARBON DIOXIDE 24 mmol/L (22-30); GFR AFRICAN-AMERICAN > 60
[2017-07-24 08:47] LABS: ALB/GLOB RATIO 1.2 (1.0-2.1); ALKALINE PHOSPHATASE 148 U/L (38-126); ALT/SGPT 93 U/L (9-52); AST/SGOT 43 U/L (14-36); BLOOD UREA NITROGEN 3 mg/dL (7-17); CALCIUM 8.7 mg/dl (8.6-10.4); GLUCOSE,RANDOM 90 mg/dL (65-105); TOTAL PROTEIN 6.4 g/dL (6.3-8.3)
[2017-07-24] MEDS: NIFEdipine 90 mg ER Tab PO SCH (09:46)
[2017-07-24] MEDS: Multiple Vitamins Tab PO SCH (09:47)
[2017-07-24] MEDS: Potassium Ch 20mEq in D5-1/2NS 1,000 ML IV SCH (12:06)
--- NOTE | 2017-07-24 16:11 | CP.PCM.PN ---
Subjective - Date & Time of Evaluation Date of Evaluation: 07/24/17 Time of Evaluation: 16:00 - Subjective Subjective: Progress note. Attending: Dr. Chand Pt seen and examined at bedside. No acute distress. No events overnight. Passing flatus, no BM. Will advance diet. No fevers, chills, vomiting, diarrhea. Cleared to go from medical perspective. Objective - Vital Signs/Intake and Output Vital Signs (last 24 hours): Temp Pulse Resp BP Pulse Ox 99.4 F 86 20 121/78 100 07/24/17 08:52 07/24/17 08:52 07/24/17 08:52 07/24/17 08:52 07/24/17 08:52 Intake and Output: 07/24/17 07/24/17 06:59 18:59 Intake Total 1400 1080 Balance 1400 1080 - Medications Medications: Current Medications Clopidogrel Bisulfate (Plavix) 75 mg PO DAILY [facility] Last Admin: 07/24/17 09:49 Dose: 75 mg Dextrose (Dextrose 50% Inj) 0 ml IV STAT PRN; Protocol PRN Reason: Hyglycemia Protocol Dextrose (Glutose 15) 0 gm PO ONCE PRN; Protocol PRN Reason: Hypoglycemia Protocol Famotidine (Pepcid) 20 mg PO DAILY [facility] Last Admin: 07/24/17 11:02 Dose: 20 mg Hydromorphone HCl (Dilaudid) 2 mg IVP Q4H PRN PRN Reason: Pain, moderate (4-7) Last Admin: 07/23/17 14:05 Dose: 2 mg Potassium Chloride/Dextrose/Sod Cl (Potassium Chl 20 Meq In D5-1/2ns) 1,000 mls @ 60 mls/hr IV .[id number] [facility] Last Admin: 07/24/17 12:06 Dose: 60 mls/hr Ceftriaxone Sodium 1 gm/ (Sodium Chloride) 100 mls @ 100 mls/hr IVPB DAILY [facility] Last Admin: 07/24/17 10:04 Dose: 100 mls/hr Insulin Human Regular (Novolin R) 0 unit SC Q6H [facility] PRN Reason: Protocol Last Admin: 07/24/17 12:04 Dose: Not Given Loratadine (Claritin) 10 mg PO DAILY [facility] Last Admin: 07/24/17 09:48 Dose: 10 mg Multivitamins (Hexavitamin) 1 tab PO DAILY [facility] Last Admin: 07/24/17 09:47 Dose: 1 tab Nifedipine (Procardia Xl) 90 mg PO DAILY [facility] Last Admin: 07/24/17 09:46 Dose: 90 mg Ondansetron HCl (Zofran Inj) 4 mg IVP Q8H PRN PRN Reason: Nausea/Vomiting Last Admin: 07/22/17 16:40 Dose: 4 mg Fluticasone/Salmeterol (Advair Diskus 250/50) 1 puff IH RQ12 [facility] Last Admin: 07/24/17 08:05 Dose: 1 puff Topiramate (Topamax) 50 mg PO DAILY [facility] Last Admin: 07/24/17 09:46 Dose: 50 mg Zinc Acetate/Diphenhydramine (Benadryl 1% Zinc Acetate -0.1%) 1 cre TOP BID PRN PRN Reason: Itching / Pruritus Last Admin: 07/12/17 15:26 Dose: 1 applic - Labs Labs: 07/24/17 08:18 07/24/17 08:18 PT 10.8 SECONDS (9.7-12.2) 07/12/17 12:56 INR 1.0 07/12/17 12:56 APTT 30 SECONDS (21-34) 07/12/17 12:56 - Constitutional Appears: Non-toxic, No Acute Distress - Head Exam Head Exam: ATRAUMATIC, NORMAL INSPECTION, NORMOCEPHALIC - Eye Exam Eye Exam: EOMI - ENT Exam ENT Exam: Mucous Membranes Moist - Respiratory Exam Respiratory Exam: NORMAL BREATHING PATTERN. absent: Respiratory Distress - Cardiovascular Exam Cardiovascular Exam: +S1, +S2 - GI/Abdominal Exam GI & Abdominal Exam: Soft, Normal Bowel Sounds. absent: Tenderness - Extremities Exam Extremities Exam: Full ROM, Normal Inspection - Back Exam Back Exam: NORMAL INSPECTION - Neurological Exam Neurological Exam: Alert, Awake, Oriented x3 - Psychiatric Exam Psychiatric exam: Normal Affect, Normal Mood - Skin Skin Exam: Dry, Intact, Normal Color, Warm Assessment and Plan - Assessment and Plan (Free Text) Assessment: This is a 61 year old female with a past medical history of DM, CAD, HTN, COPD, Migraines, and seizure disorder, presenting with Colon Cancer -s/p right hemicolectomy -NG tube removed -abdominal binder in place continue to follow sx recs. -dilaudid 2 q 4 -Dr. Wolf consulted for pre op medical clearance; appreciate recs -continue incentive spirometry -cleared to go from medical perspective -no role for active chemo at this time Elevated LFTs; downtrending Hepatitis panel negative DM;chronic -continue ISS CAD Plavix 75mg HTN Procardia XL 90mg daily COPD Home Advair, nebulizer, Singular Migraines Topamax 50mg daily Psorasis Benadryl cream as needed Prophylatic Measure Lovenox 40mg SC Protonix 40mg daily SCDs Claritin 10mg Alll management as per Dr. Chand
[2017-07-25] MEDS: (Novolin R) Insulin Human Regular 100 units/ml vial SC SCH ×4 (00:56→19:15)
[2017-07-25] MEDS: HYDROmorphone 1 mg/ml ISec IVP PRN (00:58)
--- NOTE | 2017-07-25 06:23 | PN ---
DATE: 07/24/2017 SUBJECTIVE: The patient is resting comfortably, sitting at the bedside. She is in no distress and in no discomfort, but today she has passed gas for the last day and half, but has not moved her bowels. PHYSICAL EXAMINATION: VITAL SIGNS: On examination, temperature is 99.4, pulse is 86, blood pressure is 121/78. ABDOMEN: Revealed a well-healed abdominal incision. Normal bowel sounds noted. ASSESSMENT AND PLAN: She has been advanced to soft diet and we will leave her on soft diet until her bowel function returns. Once the bowel function returns and she has bowel movement, she will be fed with regular diet and discharge. Demar Mills MD
--- NOTE | 2017-07-25 07:02 | CP.PCM.PN ---
Subjective - Date & Time of Evaluation Date of Evaluation: 07/25/17 Time of Evaluation: 10:44 - Subjective Subjective: PGY 2 medicine note- Dr. Chand's service Pt seen and examined in no acute distress. Patient states that she sometimes avoids asking for pain medications so as not to disrupt the nurses. Patient's diet was just advanced to a solid consistency yesterday. Patient states that she she is using incentive spirometry, although not as frequently as indicated. Pt denies chest pain, subjective fevers or chills, nausea, vomiting, or diarrhea at this time. Objective - Vital Signs/Intake and Output Vital Signs (last 24 hours): Temp Pulse Resp BP Pulse Ox 98.2 F 81 20 105/62 99 07/25/17 00:00 07/25/17 00:00 07/25/17 00:00 07/25/17 00:00 07/25/17 00:00 Intake and Output: 07/25/17 07/25/17 06:59 18:59 Intake Total 1200 Balance 1200 - Medications Medications: Current Medications Clopidogrel Bisulfate (Plavix) 75 mg PO DAILY [facility] Last Admin: 07/24/17 09:49 Dose: 75 mg Dextrose (Dextrose 50% Inj) 0 ml IV STAT PRN; Protocol PRN Reason: Hyglycemia Protocol Dextrose (Glutose 15) 0 gm PO ONCE PRN; Protocol PRN Reason: Hypoglycemia Protocol Famotidine (Pepcid) 20 mg PO DAILY [facility] Last Admin: 07/24/17 11:02 Dose: 20 mg Hydromorphone HCl (Dilaudid) 2 mg IVP Q4H PRN PRN Reason: Pain, moderate (4-7) Last Admin: 07/25/17 00:58 Dose: 2 mg Ceftriaxone Sodium 1 gm/ (Sodium Chloride) 100 mls @ 100 mls/hr IVPB DAILY [facility] Last Admin: 07/24/17 10:04 Dose: 100 mls/hr Insulin Human Regular (Novolin R) 0 unit SC Q6H [facility] PRN Reason: Protocol Last Admin: 07/25/17 06:41 Dose: Not Given Loratadine (Claritin) 10 mg PO DAILY [facility] Last Admin: 07/24/17 09:48 Dose: 10 mg Multivitamins (Hexavitamin) 1 tab PO DAILY [facility] Last Admin: 07/24/17 09:47 Dose: 1 tab Nifedipine (Procardia Xl) 90 mg PO DAILY [facility] Last Admin: 07/24/17 09:46 Dose: 90 mg Ondansetron HCl (Zofran Inj) 4 mg IVP Q8H PRN PRN Reason: Nausea/Vomiting Last Admin: 07/22/17 16:40 Dose: 4 mg Fluticasone/Salmeterol (Advair Diskus 250/50) 1 puff IH RQ12 [facility] Last Admin: 07/24/17 19:59 Dose: 1 puff Topiramate (Topamax) 50 mg PO DAILY [facility] Last Admin: 07/24/17 09:46 Dose: 50 mg Zinc Acetate/Diphenhydramine (Benadryl 1% Zinc Acetate -0.1%) 1 cre TOP BID PRN PRN Reason: Itching / Pruritus Last Admin: 07/12/17 15:26 Dose: 1 applic - Labs Labs: 07/24/17 08:18 07/24/17 08:18 PT 10.8 SECONDS (9.7-12.2) 07/12/17 12:56 INR 1.0 07/12/17 12:56 APTT 30 SECONDS (21-34) 07/12/17 12:56 - Constitutional Appears: Non-toxic, No Acute Distress - Head Exam Head Exam: ATRAUMATIC, NORMAL INSPECTION, NORMOCEPHALIC - Eye Exam Eye Exam: EOMI, Normal appearance, PERRL Pupil Exam: NORMAL ACCOMODATION, PERRL - ENT Exam ENT Exam: Mucous Membranes Moist - Neck Exam Neck Exam: Full ROM - Respiratory Exam Respiratory Exam: NORMAL BREATHING PATTERN. absent: Wheezes - Cardiovascular Exam Cardiovascular Exam: +S1, +S2 - GI/Abdominal Exam GI & Abdominal Exam: Soft, Tenderness (appropriately tender to palpation) Additional comments: abdominal midline scar appreciated. dann intact, clean, dry, intact with dann in place; binder in place - Extremities Exam Extremities Exam: Pedal Edema (trace). absent: Tenderness - Back Exam Back Exam: Full ROM - Neurological Exam Neurological Exam: Alert, Awake, Oriented x3 - Psychiatric Exam Psychiatric exam: Normal Affect, Normal Mood - Skin Skin Exam: Dry, Intact, Normal Color, Warm Assessment and Plan - Assessment and Plan (Free Text) Assessment: This is a 61 year old female with a past medical history of DM, CAD, HTN, COPD, Migraines, and seizure disorder, presenting with Colon Cancer -s/p right hemicolectomy -NG tube removed -abdominal binder in place -continue to follow sx recs. -Dilaudid 2mg Q4 PRN -Continue incentive spirometry -No role for active chemo at this time -Will monitor for flatus and bowel movements -Cleared from medical perspective Elevated LFTs; downtrending -Hepatitis panel negative DM;chronic -Continue ISS -Accuchecks CAD Plavix 75mg HTN Procardia XL 90mg daily COPD Home Advair, Duonebs, Singulair Migraines Topamax 50mg daily Patient should follow up with outpatient management Psoriasis Benadryl cream as needed Prophylactic Measure Lovenox 40mg SC Protonix 40mg daily SCDs Claritin 10mg Per Physical Therapy, patient's gait has improved. When cleared by Dr. Mills , patient is stable to go home with a rolling walker as well as home physical therapy services. Patient is medically optimized from a medicine standpoint. All medicine management as per Dr. Chand
[2017-07-25] MEDS: Fluticasone-Salmeterol 250-50mcg Diskus IH SCH ×2 (07:49→19:50)
[2017-07-25] MEDS: Multiple Vitamins Tab PO SCH (10:31)
[2017-07-25] MEDS: NIFEdipine 90 mg ER Tab PO SCH (10:33)
--- NOTE | 2017-07-25 20:08 | CP.PCM.PN ---
Subjective - Date & Time of Evaluation Date of Evaluation: 07/22/17 Time of Evaluation: 18:00 - Subjective Subjective: Has acid reflux discomfort Objective - Vital Signs/Intake and Output Vital Signs (last 24 hours): Temp Pulse Resp BP Pulse Ox 98.2 F 93 H 20 104/72 97 07/25/17 15:15 07/25/17 15:15 07/25/17 15:15 07/25/17 15:15 07/25/17 15:15 Intake and Output: 07/25/17 07/26/17 18:59 06:59 Intake Total 980 Balance 980 - Medications Medications: Current Medications Clopidogrel Bisulfate (Plavix) 75 mg PO DAILY [facility] Last Admin: 07/25/17 10:32 Dose: 75 mg Dextrose (Dextrose 50% Inj) 0 ml IV STAT PRN; Protocol PRN Reason: Hyglycemia Protocol Dextrose (Glutose 15) 0 gm PO ONCE PRN; Protocol PRN Reason: Hypoglycemia Protocol Famotidine (Pepcid) 20 mg PO DAILY [facility] Last Admin: 07/25/17 10:31 Dose: 20 mg Ceftriaxone Sodium 1 gm/ (Dextrose) 100 mls @ 100 mls/hr IVPB DAILY [facility] Last Admin: 07/25/17 10:30 Dose: 100 mls/hr Insulin Human Regular (Novolin R) 0 unit SC Q6H [facility] PRN Reason: Protocol Last Admin: 07/25/17 19:15 Dose: Not Given Ketorolac Tromethamine (Toradol) 15 mg IM Q6 PRN PRN Reason: Pain, Mild (1-3) Loratadine (Claritin) 10 mg PO DAILY [facility] Last Admin: 07/25/17 10:30 Dose: 10 mg Multivitamins (Hexavitamin) 1 tab PO DAILY [facility] Last Admin: 07/25/17 10:31 Dose: 1 tab Nifedipine (Procardia Xl) 90 mg PO DAILY [facility] Last Admin: 07/25/17 10:33 Dose: 90 mg Ondansetron HCl (Zofran Inj) 4 mg IVP Q8H PRN PRN Reason: Nausea/Vomiting Last Admin: 07/22/17 16:40 Dose: 4 mg Fluticasone/Salmeterol (Advair Diskus 250/50) 1 puff IH RQ12 [facility] Last Admin: 07/25/17 19:50 Dose: Not Given Topiramate (Topamax) 50 mg PO DAILY [facility] Last Admin: 07/25/17 10:33 Dose: 50 mg Zinc Acetate/Diphenhydramine (Benadryl 1% Zinc Acetate -0.1%) 1 cre TOP BID PRN PRN Reason: Itching / Pruritus Last Admin: 07/12/17 15:26 Dose: 1 applic - Labs Labs: 07/24/17 08:18 07/24/17 08:18 PT 10.8 SECONDS (9.7-12.2) 07/12/17 12:56 INR 1.0 07/12/17 12:56 APTT 30 SECONDS (21-34) 07/12/17 12:56 - Head Exam Head Exam: ATRAUMATIC - Eye Exam Eye Exam: Normal appearance - ENT Exam ENT Exam: Mucous Membranes Dry - Respiratory Exam Respiratory Exam: NORMAL BREATHING PATTERN - Cardiovascular Exam Cardiovascular Exam: +S1, +S2 - GI/Abdominal Exam GI & Abdominal Exam: Normal Bowel Sounds Assessment and Plan (1) Colon cancer Assessment & Plan: s/p hemicolectomy stage II without high risk features does not require adjuvant chemotherapy outpatient surveillance Status: Acute (2) Anemia Status: Acute
--- NOTE | 2017-07-25 20:09 | CP.PCM.PN ---
Subjective - Date & Time of Evaluation Date of Evaluation: 07/25/17 Time of Evaluation: 19:00 - Subjective Subjective: Feeling better Objective - Vital Signs/Intake and Output Vital Signs (last 24 hours): Temp Pulse Resp BP Pulse Ox 98.2 F 93 H 20 104/72 97 07/25/17 15:15 07/25/17 15:15 07/25/17 15:15 07/25/17 15:15 07/25/17 15:15 Intake and Output: 07/25/17 07/26/17 18:59 06:59 Intake Total 980 Balance 980 - Medications Medications: Current Medications Clopidogrel Bisulfate (Plavix) 75 mg PO DAILY [facility] Last Admin: 07/25/17 10:32 Dose: 75 mg Dextrose (Dextrose 50% Inj) 0 ml IV STAT PRN; Protocol PRN Reason: Hyglycemia Protocol Dextrose (Glutose 15) 0 gm PO ONCE PRN; Protocol PRN Reason: Hypoglycemia Protocol Famotidine (Pepcid) 20 mg PO DAILY [facility] Last Admin: 07/25/17 10:31 Dose: 20 mg Ceftriaxone Sodium 1 gm/ (Dextrose) 100 mls @ 100 mls/hr IVPB DAILY [facility] Last Admin: 07/25/17 10:30 Dose: 100 mls/hr Insulin Human Regular (Novolin R) 0 unit SC Q6H [facility] PRN Reason: Protocol Last Admin: 07/25/17 19:15 Dose: Not Given Ketorolac Tromethamine (Toradol) 15 mg IM Q6 PRN PRN Reason: Pain, Mild (1-3) Loratadine (Claritin) 10 mg PO DAILY [facility] Last Admin: 07/25/17 10:30 Dose: 10 mg Multivitamins (Hexavitamin) 1 tab PO DAILY [facility] Last Admin: 07/25/17 10:31 Dose: 1 tab Nifedipine (Procardia Xl) 90 mg PO DAILY [facility] Last Admin: 07/25/17 10:33 Dose: 90 mg Ondansetron HCl (Zofran Inj) 4 mg IVP Q8H PRN PRN Reason: Nausea/Vomiting Last Admin: 07/22/17 16:40 Dose: 4 mg Fluticasone/Salmeterol (Advair Diskus 250/50) 1 puff IH RQ12 [facility] Last Admin: 07/25/17 19:50 Dose: Not Given Topiramate (Topamax) 50 mg PO DAILY [facility] Last Admin: 07/25/17 10:33 Dose: 50 mg Zinc Acetate/Diphenhydramine (Benadryl 1% Zinc Acetate -0.1%) 1 cre TOP BID PRN PRN Reason: Itching / Pruritus Last Admin: 07/12/17 15:26 Dose: 1 applic - Labs Labs: 07/24/17 08:18 07/24/17 08:18 PT 10.8 SECONDS (9.7-12.2) 07/12/17 12:56 INR 1.0 07/12/17 12:56 APTT 30 SECONDS (21-34) 07/12/17 12:56 - Head Exam Head Exam: ATRAUMATIC - Eye Exam Eye Exam: Normal appearance - ENT Exam ENT Exam: Mucous Membranes Dry - Respiratory Exam Respiratory Exam: NORMAL BREATHING PATTERN - Cardiovascular Exam Cardiovascular Exam: +S1, +S2 - GI/Abdominal Exam GI & Abdominal Exam: Normal Bowel Sounds Assessment and Plan (1) Colon cancer Assessment & Plan: s/p hemicolectomy stage II without high risk features does not require adjuvant chemotherapy outpatient surveillance Status: Acute (2) Anemia Assessment & Plan: anemia w/u sent Status: Acute
--- NOTE | 2017-07-26 02:39 | PN ---
DATE: 07/25/2017 SUBJECTIVE: The patient is resting in bed comfortably. She is tolerating a soft diet. There were no current complaints. PHYSICAL EXAMINATION: VITAL SIGNS: Her temperature is 98.2, pulse is 93 and blood pressure is 104/72. ABDOMEN: Reveals well-healed incision. There was mild incisional tenderness. Bowel sounds are active. LABORATORY DATA: Reviewed and only a glucose was done today, which was basically within normal parameters. ASSESSMENT AND PLAN: Although, she has not had bowel movements, she has passed gas and she is tolerating a soft diet. It will be advance to regular in the morning. If she continues to tolerate regular diet tomorrow and the patient continues to improve, she will be discharged tomorrow evening on stool softeners with instructions to follow up with Dr. Mills in 1 week. Demar Mills MD
[2017-07-26] MEDS: (Novolin R) Insulin Human Regular 100 units/ml vial SC SCH ×2 (05:50→05:52)
[2017-07-26 06:43] LABS: BASO % 0.8 % (0.0-2.0); EOS # 0.4 K/uL (0.0-0.7); EOS % 8.8 % (0.0-4.0); HEMATOCRIT 29.6 % (34.0-47.0); LYMPH # 1.3 K/uL (1.0-4.3); LYMPH % 27.6 % (20.0-40.0); MEAN CELL VOLUME 81.9 fL (81.0-99.0); MEAN CORPUSCULAR HEMOGLOBIN 25.9 pg (27.0-31.0); MEAN CORPUSCULAR HGB CONC 31.6 g/dL (33.0-37.0); MEAN PLATELET VOLUME 8.1 fL (7.2-11.7); MONO # 0.4 K/uL (0.0-0.8); MONO % 8.3 % (0.0-10.0); RED CELL DISTRIBUTION WIDTH 14.3 % (11.5-14.5); WHITE BLOOD COUNT 4.8 K/uL (4.8-10.8)
[2017-07-26 07:14] LABS: CHLORIDE 104 mmol/L (98-107); POTASSIUM 3.6 mmol/L (3.6-5.2); SODIUM 138 mmol/L (132-148)
[2017-07-26 07:16] LABS: BILIRUBIN,TOTAL 0.3 mg/dL (0.2-1.3); GFR AFRICAN-AMERICAN > 60
[2017-07-26 07:17] LABS: ALB/GLOB RATIO 0.9 (1.0-2.1); ALKALINE PHOSPHATASE 139 U/L (38-126); ALT/SGPT 78 U/L (9-52); AST/SGOT 39 U/L (14-36); BLOOD UREA NITROGEN 8 mg/dL (7-17); CARBON DIOXIDE 23 mmol/L (22-30); GLUCOSE,RANDOM 97 mg/dL (65-105); PHOSPHOROUS 3.5 mg/dL (2.5-4.5); TOTAL PROTEIN 7.4 g/dL (6.3-8.3)
[2017-07-26 07:18] LABS: MAGNESIUM 1.9 mg/dL (1.6-2.3)
[2017-07-26 08:02] LABS: FOLATE > 20.0 ng/mL
[2017-07-26 08:05] VITALS: BP 119/68; PULSE 87; TEMP 99.2; O2SAT 10
[2017-07-26] MEDS: Fluticasone-Salmeterol 250-50mcg Diskus IH SCH (08:50)
--- NOTE | 2017-07-26 09:25 | CP.PCM.PN ---
Subjective - Date & Time of Evaluation Date of Evaluation: 07/26/17 Time of Evaluation: 07:50 - Subjective Subjective: PGY 2 Medicine Note- Dr. Chand's service Pt seen and examined bedside. Patient was very irritated this morning, stating that she wanted to go home. She did not feel that her pain has been adequately controlled. She states that she sometimes has to wait for long periods of time for medications when she asks. She sometimes tries to bear the pain on her own; however she states that she feels bad doing this especially because she typically uses pain medications very infrequently. Patient states that her daughter will be here at 11 am and would like to to be formally discharged at that time. She states that she has been passing gas but has not yet had a bowel movement. She is aware that the surgeon would like her to have a bowel movement before she is discharged however she would like to continue her recovery process at home. She did not want to address a ROS at the moment. She asked if the discharge process could begin. Objective - Vital Signs/Intake and Output Vital Signs (last 24 hours): Temp Pulse Resp BP Pulse Ox 99.2 F 87 20 119/68 10 L 07/26/17 08:04 07/26/17 08:04 07/26/17 08:04 07/26/17 08:04 07/26/17 08:04 - Medications Medications: Current Medications Clopidogrel Bisulfate (Plavix) 75 mg PO DAILY [facility] Last Admin: 07/25/17 10:32 Dose: 75 mg Dextrose (Dextrose 50% Inj) 0 ml IV STAT PRN; Protocol PRN Reason: Hyglycemia Protocol Dextrose (Glutose 15) 0 gm PO ONCE PRN; Protocol PRN Reason: Hypoglycemia Protocol Famotidine (Pepcid) 20 mg PO DAILY [facility] Last Admin: 07/25/17 10:31 Dose: 20 mg Ceftriaxone Sodium 1 gm/ (Dextrose) 100 mls @ 100 mls/hr IVPB DAILY [facility] Last Admin: 07/25/17 10:30 Dose: 100 mls/hr Insulin Human Regular (Novolin R) 0 unit SC Q6H [facility] PRN Reason: Protocol Last Admin: 07/26/17 05:52 Dose: Not Given Ketorolac Tromethamine (Toradol) 15 mg IM Q6 PRN PRN Reason: Pain, Mild (1-3) Last Admin: 07/25/17 20:18 Dose: 15 mg Loratadine (Claritin) 10 mg PO DAILY [facility] Last Admin: 07/25/17 10:30 Dose: 10 mg Multivitamins (Hexavitamin) 1 tab PO DAILY [facility] Last Admin: 07/25/17 10:31 Dose: 1 tab Nifedipine (Procardia Xl) 90 mg PO DAILY [facility] Last Admin: 07/25/17 10:33 Dose: 90 mg Ondansetron HCl (Zofran Inj) 4 mg IVP Q8H PRN PRN Reason: Nausea/Vomiting Last Admin: 07/22/17 16:40 Dose: 4 mg Fluticasone/Salmeterol (Advair Diskus 250/50) 1 puff IH RQ12 [facility] Last Admin: 07/26/17 08:50 Dose: 1 puff Topiramate (Topamax) 50 mg PO DAILY [facility] Last Admin: 07/25/17 10:33 Dose: 50 mg Zinc Acetate/Diphenhydramine (Benadryl 1% Zinc Acetate -0.1%) 1 cre TOP BID PRN PRN Reason: Itching / Pruritus Last Admin: 07/12/17 15:26 Dose: 1 applic - Labs Labs: 07/26/17 06:24 07/26/17 06:24 PT 10.8 SECONDS (9.7-12.2) 07/12/17 12:56 INR 1.0 07/12/17 12:56 APTT 30 SECONDS (21-34) 07/12/17 12:56 - Constitutional Appears: Non-toxic, No Acute Distress - Head Exam Head Exam: ATRAUMATIC, NORMAL INSPECTION, NORMOCEPHALIC - Eye Exam Eye Exam: EOMI, Normal appearance - ENT Exam ENT Exam: Mucous Membranes Moist - Neck Exam Neck Exam: Full ROM - Respiratory Exam Respiratory Exam: NORMAL BREATHING PATTERN - Cardiovascular Exam Cardiovascular Exam: +S1, +S2 - GI/Abdominal Exam GI & Abdominal Exam: Soft, Normal Bowel Sounds Additional comments: abdominal midline scar appreciated. dann intact, clean, dry, intact with dann in place; binder in place - Extremities Exam Extremities Exam: Full ROM, Normal Capillary Refill - Back Exam Back Exam: Full ROM - Neurological Exam Neurological Exam: Alert, Awake, Oriented x3 - Psychiatric Exam Psychiatric exam: Normal Affect, Normal Mood - Skin Skin Exam: Dry, Normal Color, Warm Assessment and Plan - Assessment and Plan (Free Text) Assessment: Colon Cancer -s/p right hemicolectomy - on heart healthy diet- No BMs, positive flatus -abdominal binder in place -continue to follow sx recs. -Dilaudid 2mg Q4 PRN -Continue incentive spirometry -No role for active chemo at this time -Will monitor for flatus and bowel movements -Cleared from medical perspective Elevated LFTs; downtrending -Hepatitis panel negative DM;chronic -Continue ISS -Accuchecks CAD Plavix 75mg HTN Procardia XL 90mg daily COPD Home Advair, Duonebs, Singulair Anemia Stable at this time. Cont to monitor Encourage daily iron over the counter upon discharge Migraines Topamax 50mg daily Patient should follow up with outpatient management Psoriasis Benadryl cream as needed Prophylactic Measure Lovenox 40mg SC Protonix 40mg daily SCDs Claritin 10mg Per Physical Therapy, patient does still have some lower extremity weakness and gait instability. This is likely secondary to continued recovery following hemicolectomy which was performed. Patient will benefit from a rolling walker as well as visiting nursing services at home for management of underlying medical conditions ( COPD, HTN, DM) as well as medication management. Patient is medically optimized from a medicine standpoint. Patient is currently requesting discharge home . Will address with primary team. All medicine management as per Dr. Chand
[2017-07-26] MEDS: Multiple Vitamins Tab PO SCH (10:28)
[2017-07-26] MEDS: NIFEdipine 90 mg ER Tab PO SCH (10:28)
--- NOTE | 2017-07-26 12:55 | PN ---
DATE: 07/26/2017 SUBJECTIVE: The patient today is postoperative day #9, status post a right hemicolectomy. Her hospital course has been generally benign; however, she has not had a bowel movement as of yet. Despite this, she has passed gas and tolerated regular diet and has remained comfortable. PHYSICAL EXAMINATION: VITAL SIGNS: Her temperature is 99.2, pulse is 87, blood pressure 119/68 and respiratory rate is 20. Pertinent physical findings included the abdomen which had a well-healed incision. There is no erythema. There is minimal incisional tenderness. There is no abdominal distention. Bowel sounds are normoactive. LABORATORY DATA: Labs were examined. The white count was 4.1. The remainder of the labs were generally within normal parameters for a patient status post right hemicolectomy. PLAN: She will be discharged today. Instructed to follow up with Dr. Mills in one week. She will take Tylenol for pain and Colace stool softener. If there are any issues, I discussed this with the family to call me immediately through my office or answering service. She will follow up with me in one week. Demar Mills MD
== END 2017-07-26 13:38 | disposition home or self-care (01) | DRG 148 ==
LOC: C.ER 11:14 → C.9E 13:14 → C.3T 13:35 → C.9I 07-17 20:18 → C.3T 07-21 02:43
PROVIDERS: ADMIT Surgery; ATTEND Surgery
PROC: 0DTF0ZZ Resection of Right Large Intestine, Open Approach (ICD-10-PCS; principal; 2017-07-17 14:30)
DX: C18.0 Malignant neoplasm of cecum (principal); J44.9 Chronic obstructive pulmonary disease, unspecified; S36.531A Laceration of transverse colon, initial encounter; I10 Essential (primary) hypertension; Y65.8 Other specified misadventures during surgical and medical care; E78.5 Hyperlipidemia, unspecified; I25.10 Atherosclerotic heart disease of native coronary artery without angina pectoris; Z86.73 Personal history of transient ischemic attack (TIA), and cerebral infarction without residual deficits; G47.33 Obstructive sleep apnea (adult) (pediatric); Z98.84 Bariatric surgery status; G43.909 Migraine, unspecified, not intractable, without status migrainosus; L40.9 Psoriasis, unspecified; E11.9 Type 2 diabetes mellitus without complications; Z87.891 Personal history of nicotine dependence; R74.0 Nonspecific elevation of levels of transaminase and lactic acid dehydrogenase [LDH]; G40.909 Epilepsy, unspecified, not intractable, without status epilepticus; Z79.4 Long term (current) use of insulin